=== PATIENT | female | born 1950 | race Caucasian/White ===

== ENCOUNTER → 2018-05-16 | Outpatient (CLI) | payer MEDICARE ==
--- NOTE | 2018-05-16 16:43 | BD ---
EXAMINATION TYPE: Axial Bone Density DATE OF EXAM: 05/16/2018 COMPARISON: 12/26/2003 CLINICAL HISTORY: Height: 65 IN Weight: 195 LBS FRAX RISK QUESTIONS: History of Fracture in Adulthood: YES TOE FX AGE 67; TOE FX AGE 68 Secondary Osteoporosis: 3. Menopause before 45: YES AGE 41 RISK FACTORS HISTORY OF: History of Wrist Fracture: YES RT WRIST When: AGE 37 Active: YES Diet low in dairy products/other sources of calcium: YES Postmenopausal woman: AGE 41 Take estrogen and/or progesterone medications: NOT NOW How long: AGE 41 - 51 MEDICATIONS: Thyroid Medications: YES Which medication: Levothyroxine How Lon + YEARS Additional Medications: MULTI VIT, COCOA, LEVOTHYROXINE, LONGEVITY, YOUNG LIVING CALCIUM EXAM MEASUREMENTS: Bone mineral densitometry was performed using the [employer] System. Bone mineral density as measured about the Lumbar spine is: ----- L1-L4(G/cm2): 1.306 T Score Values are as follows: ----- L2: 1.3 ----- L3: 1.8 ----- L4: 0.6 ----- L1-L4: 1.0 Bone mineral density has: Increased 6.3% since study of: 12/26/2003 Bone mineral density about the R hip (g/cm2): 0.907 Bone mineral density about the L hip (g/cm2): 0.965 T Score values are as follows: -----R Neck: -0.9 -----L Neck: -0.5 -----R Total: -0.4 -----L Total: -0.7 Bone mineral density has: Decreased -6.2% since study of: 12/26/2003 IMPRESSION: Normal (Values between +1 and -1 indicate normal bone mass). Consider repeating this study in 5 year s or sooner if there is some new clinical indication. NOTE: T-SCORE=SD OF THE YOUNG ADULT MEAN.
--- NOTE | 2018-05-19 12:39 | MM ---
Reason for exam: screening (asymptomatic). Last mammogram was performed 1 year and 1 month ago. History: Patient is postmenopausal and had first child at age 40. Family history of breast cancer in mother at age 84. Benign excisional biopsy of the left breast, March 25, 1997. Excisional biopsy of the right breast. MG 3D Screening Mammo W/Cad Bilateral CC and MLO view(s) were taken. Prior study comparison: April 03, 2017, bilateral MG 3d screening mammo w/cad. March 03, 2016, mammogram, performed at [facility]. The breast tissue is heterogeneously dense. This may lower the sensitivity of mammography. Previous mammotome biopsy in the right breast. Chronic nodularity middle depth centrally in the left breast. No significant changes when compared with prior studies. ASSESSMENT: Negative, BI-RAD 1 RECOMMENDATION: Routine screening mammogram of both breasts in 1 year.
== END | disposition home or self-care (01) ==
LOC: RADMAMWWP 14:22
PROVIDERS: ATTEND Internal Medicine
DX: Z12.31 Encounter for screening mammogram for malignant neoplasm of breast (principal); Z80.3 Family history of malignant neoplasm of breast; Z78.0 Asymptomatic menopausal state
CPT/HCPCS: 77063; 77067; 77080

== ENCOUNTER 2018-06-10 01:36 | Observation (INO) | payer MEDICARE ==
--- NOTE | 2018-06-10 02:05 | ED ---
Chest Pain HPI - General Chief Complaint: Chest Pain Stated Complaint: Chest Pain Time Seen by Provider: 06/10/18 01:48 Source: patient, family Mode of arrival: ambulatory Limitations: no limitations - History of Present Illness MD Complaint: chest pain -: hour(s) Onset: during rest Pain Location: left chest Pain Radiation: none Severity: severe Quality: sharp Consistency: now resolved Improves With: nothing Worsens With: nothing - Related Data Home Medications Medication Instructions Recorded Confirmed Levothyroxine Sodium [Synthroid] 100 mcg PO DAILY 02/10/15 03/30/17 Allergies Allergy/AdvReac Type Severity Reaction Status Date / Time latex Allergy Anaphylaxis Verified 06/10/18 01:42 P-phenylenediamine Allergy Swelling Uncoded 06/10/18 01:42 Review of Systems ROS Statement: Those systems with pertinent positive or pertinent negative responses have been documented in the HPI. ROS Other: All systems not noted in ROS Statement are negative. Constitutional: Denies: fever, chills Respiratory: Denies: cough, dyspnea Cardiovascular: Reports: chest pain. Denies: palpitations, orthopnea, edema, syncope Gastrointestinal: Denies: abdominal pain, nausea, vomiting Genitourinary: Denies: dysuria, hematuria Musculoskeletal: Denies: back pain Skin: Denies: rash Neurological: Denies: headache, weakness, numbness EKG Findings - EKG Comments: EKG Findings:: QTC is 492 ms, prolonged. - EKG Results: EKG: interpreted by ERMD, sinus rhythm, normal axis, normal QRS, normal ST/T Past Medical History Past Medical History: Cancer, CVA/TIA, Eye Disorder, Thyroid Disorder Additional Past Medical History / Comment(s): , TIA yrs. ago without further problems.,. CATARACT RT EYE. Small lymphocytic lymphoma. Chronic lymphocytic leukemia History of Any Multi-Drug Resistant Organisms: None Reported Additional Past Surgical History / Comment(s): Infected milk duct yrs. ago. COLONOSCOPY X 3. CATARACT SX LT EYE. Lymphnode removed in neck Past Anesthesia/Blood Transfusion Reactions: No Reported Reaction Past Psychological History: No Psychological Hx Reported Smoking Status: Never smoker Past Alcohol Use History: Daily Past Drug Use History: None Reported - Past Family History Sister(s) Family Medical History: Cancer Mother Family Medical History: Cancer Additional Family Medical History / Comment(s): Breast Brother(s) Family Medical History: Cancer Additional Family Medical History / Comment(s): TWO BROTHERS WITH CANCER- Pancreatic and BLADDER General Exam Limitations: no limitations General appearance: alert, in no apparent distress, anxious Head exam: Present: atraumatic, normocephalic Eye exam: Present: normal appearance. Absent: scleral icterus, conjunctival injection ENT exam: Present: normal oropharynx Respiratory exam: Present: normal lung sounds bilaterally. Absent: respiratory distress, wheezes, rales, rhonchi, stridor Cardiovascular Exam: Present: regular rate, normal rhythm, normal heart sounds. Absent: systolic murmur, diastolic murmur, rubs, gallop GI/Abdominal exam: Present: soft. Absent: distended, tenderness, guarding, rebound, mass Extremities exam: Present: normal inspection, normal capillary refill. Absent: pedal edema, calf tenderness Back exam: Present: normal inspection. Absent: CVA tenderness (R), CVA tenderness (L) Neurological exam: Present: alert Skin exam: Present: warm, dry, intact, normal color. Absent: rash Course Vital Signs 06/10/18 06/10/18 06/10/18 01:38 01:51 02:00 Temperature 98.0 F Pulse Rate 102 H 93 88 Respiratory 22 15 11 L Rate Blood Pressure 203/100 O2 Sat by Pulse 99 97 Oximetry 06/10/18 06/10/18 06/10/18 02:15 02:30 02:45 Temperature Pulse Rate 89 76 80 Respiratory 17 11 L 12 Rate Blood Pressure 172/99 O2 Sat by Pulse 98 98 97 Oximetry 06/10/18 06/10/18 06/10/18 03:00 03:15 03:30 Temperature Pulse Rate 70 70 67 Respiratory 19 13 15 Rate Blood Pressure 154/86 167/92 167/92 O2 Sat by Pulse 98 98 97 Oximetry 06/10/18 06/10/18 06/10/18 03:45 04:00 04:15 Temperature Pulse Rate 66 64 63 Respiratory 12 21 14 Rate Blood Pressure 150/97 150/97 152/83 O2 Sat by Pulse 97 97 98 Oximetry Disposition Clinical Impression: Chest pain Disposition: ADMITTED IP TO THIS [facility] Condition: Good Is patient prescribed a controlled substance at d/c from ED?: No Referrals: Bib Plunkett MD [Primary Care Provider] - 1-2 days
[2018-06-10] MEDS ORDERED: LABETALOL SYRINGE 5 MG/ML IVP STA (02:26)
[2018-06-10] MEDS ORDERED: ASPIRIN 81 MG PO STA (02:26)
[2018-06-10 02:45] LABS: Basophils # (A) 0.1 k/uL (0-0.2); Basophils % (A) 1 %; Eosinophils # (A) 0.2 k/uL (0-0.7); Eosinophils % (A) 4 %; HGB 13.4 gm/dL (11.4-16.0); Lymphocytes # (A) 1.7 k/uL (1.0-4.8); Lymphocytes % (A) 27 %; MCH 30.8 pg (25.0-35.0); MCHC 32.5 g/dL (31.0-37.0); MCV 94.6 fL (80.0-100.0); Mean Platelet Volume 7.7; Monocytes # (A) 0.6 k/uL (0-1.0); Monocytes % (A) 9 %; Neutrophils # (A) 3.4 k/uL (1.3-7.7); Neutrophils % (A) 56 %; Platelet Count 205 k/uL (150-450); RBC 4.34 m/uL (3.80-5.40); RDW 12.9 % (11.5-15.5); WBC 6.2 k/uL (3.8-10.6)
--- NOTE | 2018-06-10 02:46 | XR ---
EXAM: XR Chest, 2 Views CLINICAL HISTORY: ITS.REASON XR Reason: Chest Pain TECHNIQUE: Frontal and lateral views of the chest. COMPARISON: 01/20/08. No prior report. FINDINGS: Poor inspiratory depth on the frontal view. This accentuates the cardiac and mediastinal silhouette. Suspect heart size is upper limits normal allowing for technique. Suspected atelectasis and vascular congestion. No consolidation. IMPRESSION: Suspected vascular congestion.
[2018-06-10 03:00] LABS: Albumin 4.7 g/dL (3.5-5.0); Calcium 9.7 mg/dL (8.4-10.2); Magnesium 2.1 mg/dL (1.6-2.3); Potassium 3.9 mmol/L (3.5-5.1); Total Bilirubin 0.6 mg/dL (0.2-1.3); Total Protein 7.7 g/dL (6.3-8.2)
[2018-06-10 03:15] LABS: D-Dimer 0.56 mg/L FEU (<0.60); INR 0.9 (<1.2); Partial Thromboplastin Time 25.4 sec (22.0-30.0); Prothrombin Time 10.1 sec (9.0-12.0)
[2018-06-10 03:21] LABS: Creatine Kinase 65 U/L (30-135)
[2018-06-10 03:33] LABS: Creatine Kinase MB 1.1 ng/mL (0.0-2.4); Troponin I <0.012 ng/mL (0.000-0.034)
[2018-06-10] MEDS ORDERED: NITROGLYCERIN SL TABS 0.4 MG TAB SUBLINGUAL PRN (04:29)
[2018-06-10 06:12] LABS: Creatine Kinase 52 U/L (30-135)
[2018-06-10 06:15] VITALS: BMI 32.4
[2018-06-10 06:25] LABS: Creatine Kinase MB 0.7 ng/mL (0.0-2.4); Troponin I <0.012 ng/mL (0.000-0.034)
--- NOTE | 2018-06-10 07:59 | P.HPIM ---
History of Present Illness The patient is a 68-year-old female patient of Dr. Stone for whom I am covering. Patient presented to the emergency room earlier this morning with upper left chest pain which was described as sharp in nature and sudden in onset. The pain she has not had previously. Along with an elevated blood pressure. The patient states she was doing some research with her on the Internet for her newly diagnosed chronic lymphocytic leukemia when the chest pain started. Shortly after that she checked her blood pressure and it was elevated over 200. The patient did move out of the room she was in and the pain dissipated over several minutes. It did not radiate to the jaw or to the arm. It was not pleuritic in nature. Patient was brought to the emergency room. Past medical history No history of previous cardiac problems.. It appears she has been recently diagnosed with chronic lymphocytic leukemia. Hypothyroidism on replacement History of possible TIA in the past. No history of myocardial infarction hypertension or diabetes. ALLERGIES Latex: Anaphylactoid reaction Home medications Levothyroxine 100 g daily Review of systems Basically as stated above with the chest pain. No complaints of fever or chills or cough. No visual disturbances or headaches. No nausea or vomiting. No urinary or bowel's problems. No unusual leg edema. Family history Mother with breast cancer. 2 brothers with cancer apparently pancreatic and bladder cancer. Social history No smoking history but does drink small amounts of alcohol regularly. Lives with her locally in the area. Physical examination Patient was aroused in bed on the observation unit. Generally alert and oriented once aroused. Vital signs show a temperature of 97.5 with a pulse of 62 and respirations 16. Blood pressure 166/88 and she is 97% saturated on room air. Head and neck exam is unremarkable. Extraocular movements are intact. Neck is not stiff. No thyromegaly detected. Lungs were clear to auscultation. Breast and pelvic exam deferred. Heart was regular without murmurs or rubs appreciated. Abdomen is soft and nontender without rebound, guarding or masses. Extremities reveal no edema. She is alert and oriented. No focal cranial or peripheral nerve deficits. Laboratory CBC was normal with white count 6.2, hemoglobin 13.4 and platelet count 205. Coagulation studies normal and d-dimer was 0.56. Electrolytes were normal with a potassium 3.9. BUN was 30 with creatinine 0.82 given her GFR 73. CKs were normal. Troponins 2 so far less than 0.012. Albumin 4.7. Other liver function tests normal. EKG shows a normal sinus rhythm with what appears to be a prolonged QT interval but no acute ischemic changes noted. Chest x-ray showed suspected vascular congestion but poor inspiratory effort. Impressions Chest pain Elevated blood pressure readings without diagnosis of hypertension Hypothyroidism on replacement therapy History of TIA Apparently newly diagnosed chronic lymphocytic leukemia Plans Patient will be monitored Cardiology consult. Further troponin values to be obtained Patient has appointment with oncology soon for her CLL. will await further recommendations from cardiology regarding further workup. Past Medical History Past Medical History: Cancer, CVA/TIA, Eye Disorder, Thyroid Disorder Additional Past Medical History / Comment(s): TIA yrs. ago without further problems.,. CATARACT RT EYE. Small lymphocytic lymphoma. Chronic lymphocytic leukemia History of Any Multi-Drug Resistant Organisms: None Reported Additional Past Surgical History / Comment(s): Infected milk duct yrs. ago. COLONOSCOPY X 3. CATARACT SX LT EYE. Lymphnode removed in neck Past Anesthesia/Blood Transfusion Reactions: No Reported Reaction Past Psychological History: No Psychological Hx Reported Smoking Status: Never smoker Past Alcohol Use History: Daily Past Drug Use History: None Reported - Past Family History Sister(s) Family Medical History: Cancer Mother Family Medical History: Cancer Additional Family Medical History / Comment(s): Breast Brother(s) Family Medical History: Cancer Additional Family Medical History / Comment(s): TWO BROTHERS WITH CANCER- Pancreatic and BLADDER Medications and Allergies Home Medications Medication Instructions Recorded Confirmed Type Levothyroxine Sodium [Synthroid] 100 mcg PO DAILY 02/10/15 03/30/17 History Allergies Allergy/AdvReac Type Severity Reaction Status Date / Time latex Allergy Anaphylaxis Verified 06/10/18 01:42 P-phenylenediamine Allergy Swelling Uncoded 06/10/18 01:42 Physical Exam Vitals: Vital Signs Temp Pulse Pulse Resp BP BP Pulse Ox 06/10/18 05:59 97.5 F L 62 16 166/88 97 06/10/18 05:10 62 16 06/10/18 04:15 63 14 152/83 98 06/10/18 04:00 64 21 150/97 97 06/10/18 03:45 66 12 150/97 97 06/10/18 03:30 67 15 167/92 97 06/10/18 03:15 70 13 167/92 98 06/10/18 03:00 70 19 154/86 98 06/10/18 02:45 80 12 172/99 97 06/10/18 02:30 76 11 L 98 06/10/18 02:15 89 17 98 06/10/18 02:00 88 11 L 97 06/10/18 01:51 93 15 06/10/18 01:38 98.0 F 102 H 22 203/100 99 Intake and Output 06/09/18 06/10/18 06/10/18 22:59 06:59 14:59 Other: Voiding Method Toilet # Voids 1 Weight 88.451 kg Results CBC & Chem 7: 06/10/18 02:00 06/10/18 02:00 Labs: Abnormal Lab Results - Last 24 Hours (Table) 06/10/18 Range/Units 02:00 BUN 30 H (7-17) mg/dL Thrombosis Risk Factor Assmnt - Choose All That Apply Any of the Below Risk Factors Present?: Yes Each Factor Represents 1 point: Obesity (BMI >25) Other Risk Factors: Yes Each Risk Factor Represents 2 Points: Age 61-74 years Other congenital or acquired thrombophilia - If yes, enter type in comment: No Thrombosis Risk Factor Assessment Total Risk Factor Score: 3 Thrombosis Risk Factor Assessment Level: Moderate Risk
[2018-06-10] MEDS ORDERED: METOPROLOL TARTRATE 25 MG TAB PO SCH (09:00)
[2018-06-10] MEDS: LEVOTHYROXINE 100 MCG TAB PO SCH (10:07)
--- NOTE | 2018-06-10 10:45 | CONS ---
CONSULTATION Mrs. Turner is a 68-year-old female who was admitted through the emergency room with symptoms of chest discomfort. She was recently diagnosed with CLL and while looking up some information with her on the Internet, she felt severe chest discomfort. Subsequently checked her blood pressure and it was elevated. Because of that, she came into the emergency room and subsequently admitted. The patient denies any prior similar symptoms. She is active physically. Has no exertional chest pain. She has no dizziness or palpitation on a regular basis. No PND, orthopnea, or peripheral edema. Her discomfort did not radiate. She usually exercises without any symptoms. Her coronary risk factors are negative for hypertension or diabetes. She is nonsmoker. No documented significant hyperlipidemia. Her blood pressure has been under good control at home. MEDICATION: Her medications at home include levothyroxine, vitamin D and calcium. She is scheduled to see Dr. Will for the first time tomorrow. REVIEW OF SYSTEMS: RESPIRATORY system: No recent wheezing. No cough. No history of documented obstructive lung disease. GI system: No recent GI bleed. No peptic ulcer disease. system: No dysuria or hematuria. Nervous system: No stroke or seizure. She had a prior TIA according to her. PHYSICAL EXAMINATION: She is a 68-year-old female, alert, oriented, in no apparent distress. Blood pressure 121/70 with a heart rate in the 60s. HEAD: Normocephalic. EYES: Sclerae anicteric. Neck: Good carotid upstroke with left-sided bruit. No jugular venous distention. Lungs clear to auscultation. HEART: Regular rate and rhythm S1, S2. No S3 with systolic murmur heard at the base. No diastolic murmur. No rub. ABDOMEN: Soft, nontender. Positive bowel sounds. No organomegaly. EXTREMITIES: No edema. Intact distal pulses. LAB DATA: EKG revealed sinus mechanism, rate [address]-T wave changes. Troponin less than 0.012 for 2 samples. BUN and creatinine 30 and 0.82. Hemoglobin of 13.4. Chest x-ray revealed no acute infiltrate. IMPRESSION: 1. Chest discomfort atypical for ischemic heart disease probably noncardiac. 2. Recently diagnosed CLL. 3. Hypertension not documented in the past. RECOMMENDATION: I will increase her level of activity. Obtain a stress echocardiogram and transthoracic echo tomorrow. If there is no abnormality, she should be able to be discharged home tomorrow. She has an appointment with Dr. Will tomorrow at noon time and hopefully her testing can be done prior to that. Thank you for this consult. We will follow with you. OFE / SARANN: [id number] /
[2018-06-10 15:37] LABS: Creatine Kinase 46 U/L (30-135)
[2018-06-10 15:50] LABS: Creatine Kinase MB 0.6 ng/mL (0.0-2.4); Troponin I <0.012 ng/mL (0.000-0.034)
[2018-06-11 04:41] LABS: Cholesterol 261 mg/dL (<200); HDL Cholesterol 92 mg/dL (40-60); LDL Cholesterol,Calculated 144 mg/dL (0-99); Triglycerides 126 mg/dL (<150)
[2018-06-11] MEDS: LEVOTHYROXINE 100 MCG TAB PO SCH (05:53)
[2018-06-11] MEDS ORDERED: ASPIRIN 325 MG TAB PO SCH (09:00)
[2018-06-11 09:10] VITALS: BP 159/93; PULSE 61; RESP 14; TEMP 97.4
--- NOTE | 2018-06-11 10:58 | P.PN ---
Subjective This is a pleasant 68-year-old female past medical history significant for CLL. She presented to the hospital with chest discomfort that has resolved. She does not follow with a safety risk lead for any reason. She denies any further symptoms of chest pain. Denies shortness of breath, dizziness , palpitations, nausea, vomiting or diaphoresis. She underwent stress echocardiogram today that was negative for stress induced ischemia. Blood pressure 159/93 heart rate 61. Laboratory data reviewed, cardiac enzymes negative x3, LDL 144, HDL 92. Currently takes no medication for high blood pressure or high cholesterol. GENERAL: Well-appearing, well-nourished and in no acute distress. NECK: Supple without JVD or thyromegaly. LUNGS: Breath sounds clear to auscultation bilaterally. Respiration equal and unlabored. No wheezes, rales or rhonchi. HEART: Regular rate and rhythm with systolic murmur at the base, no rubs or gallops. S1 and S2 heard. EXTREMITIES: Normal range of motion, no edema. No clubbing or cyanosis. Peripheral pulses intact. ASSESSMENT Chest pain, atypical. An acute coronary event has been ruled out. Recently diagnosed with CLL Dyslipidmia PLAN Initiate on lisinopril 5 mg daily and atorvastatin 40 mg daily. Lifestyle modifications recommended for lowering of LDL cholesterol with diet and exercise. Follow up liver function tests in [address] Lawrence in the office in 3 weeks, appointment to be made prior to discharge. Stable for discharge home from a cardiac perspective. Nurse Practitioner note has been reviewed, I agree with a documented findings and plan of care. Patient was seen and examined. Objective - Vital Signs Vital signs: Vital Signs Temp 97.4 F L 06/11/18 08:00 Pulse 61 06/11/18 08:00 Resp 14 06/11/18 08:00 BP 159/93 06/11/18 08:00 Pulse Ox 95 06/11/18 08:00 Intake & Output 06/10/18 06/11/18 06/11/18 18:59 06:59 18:59 Other: Voiding Method Toilet Toilet # Voids 1 - Labs CBC & Chem 7: 06/10/18 02:00 06/10/18 02:00 Labs: Abnormal Lab Results - Last 24 Hours (Table) 06/10/18 Range/Units 02:00 Cholesterol 261 H (<200) mg/dL LDL Cholesterol, Calc 144 H (0-99) mg/dL HDL Cholesterol 92 H (40-60) mg/dL
[2018-06-11] MEDS ORDERED: ATORVASTATIN 40 MG TAB PO SCH (11:00)
[2018-06-11] MEDS ORDERED: LISINOPRIL 5 MG TAB PO SCH (11:00)
--- NOTE | 2018-06-11 11:49 | ECHOS ---
STRESS ECHOCARDIOGRAM INDICATIONS: Chest pain. MEDICATIONS: Synthroid. BASELINE HEART RATE: 69 BASELINE BLOOD PRESSURE: 181/88 MAXIMUM HEART RATE: 140 MAXIMUM BLOOD PRESSURE: 208/101 85% MPHR: 128 100% MPHR: 150 METS: 8.3 MAXIMUM STAGE REACHED: 3 TOTAL EXERCISE TIME: 7:00 CLINICAL INFORMATION: Baseline EKG shows sinus rhythm, normal axis, normal intervals. The patient exercised on Misha protocol for a total of 7 minutes achieving 8 METs, 93% of predicted maximal heart rate without chest pain. At peak exercise, there was [address]-segment depression noted in the inferolateral leads. Baseline echo shows normal left ventricular size wall motion systolic function. Postexercise, there is normal hyperdynamic response of all segments of myocardium. CONCLUSION: 1. Above-average exercise tolerance. 2. Abnormal stress test by EKG criteria. 3. Negative stress echo. OFE / JASON: [id number] /
--- NOTE | 2018-06-11 23:02 | PN ---
PROGRESS NOTE CHIEF COMPLAINT: Re-evaluation. HISTORY OF PRESENT ILLNESS: This lady was admitted to the hospital because of chest pain. The patient also had elevated blood pressure. She was evaluated and admitted to the hospital. The patient's troponins are negative. The patient has no further symptoms. She is sitting up, actually wanting to go home right away. The patient is scheduled for a stress test. She denies any other major symptoms. She has an appointment with the oncologist today for a recent diagnosis of CLL; possibility of lymphoma obviously has to be ruled out. The patient denies any cardiac symptoms. She was seen by Cardiology. REVIEW OF SYSTEMS: NEURO: Denies any headaches, dizziness. PSYCH: No anxiety. Some apprehension. CARDIAC: Denies chest pain, angina, palpitations. RESPIRATORY: Denies shortness of breath, cough, hemoptysis. GI: No nausea, vomiting, abdominal pain, diarrhea. : No symptoms of dysuria or hematuria. EXTREMITIES: No pain, edema. CONSTITUTIONAL: No fever, chills. PHYSICAL EXAMINATION: Pleasant female in no distress. Vital signs reveal temperature 97.4, pulse 61, respirations 14, blood pressure 159/93, pulse ox of 95% on room air. HEENT: Normocephalic. NECK: Some lymph nodes in the posterior cervical area on the left side; maybe smaller on the right side. No other supraclavicular lymph nodes. Small axillary lymph nodes bilaterally. No inguinal nodes. No splenomegaly. CHEST: Clear to auscultation and percussion. CARDIAC: Normal S1, S2 with no gallops, murmurs, rubs. ABDOMEN: Soft. Bowel sounds present. EXTREMITIES: No edema. No tenderness. NEUROLOGIC: Awake, alert, oriented with well-coordinated movements. LABORATORY ASSESSMENT: Troponin is negative x3. Stress echo was reported negative. ASSESSMENT: 1. Atypical chest pain. 2. Lymphadenopathy with underlying diagnosis of chronic lymphocytic leukemia. 3. Elevated blood pressure. PLAN: The patient is stable. Continue present medical regimen. She is planned for discharge. She will follow up as an outpatient regarding her blood pressure. She has also got an appointment to see the oncologist today. MMODL / IJN: [id number] /
== END 2018-06-11 11:26 | disposition home or self-care (01) ==
LOC: EC 01:36 → 1SOBS 04:32
PROVIDERS: ADMIT Internal Medicine; ATTEND Internal Medicine
DX: R07.89 Other chest pain (principal); C91.10 Chronic lymphocytic leukemia of B-cell type not having achieved remission; E03.9 Hypothyroidism, unspecified; I10 Essential (primary) hypertension; Z79.890 Hormone replacement therapy; Z91.040 Latex allergy status; Z98.42 Cataract extraction status, left eye; Z88.8 Allergy status to other drugs, medicaments and biological substances; Z86.73 Personal history of transient ischemic attack (TIA), and cerebral infarction without residual deficits; Z80.3 Family history of malignant neoplasm of breast; Z80.52 Family history of malignant neoplasm of bladder
CPT/HCPCS: 96374; 99285; 36415; 93005; 93306; 93351; 85379; 80061; 80053; 82550; 82553; 83735; 84484; 85025; 85610; 85730; 71046; G0378 ×2

== ENCOUNTER → 2018-06-13 | Outpatient (CLI) | payer MEDICARE ==
--- NOTE | 2018-06-13 12:25 | CT ---
EXAMINATION TYPE: CT ChestAbdPelvis w con DATE OF EXAM: 06/13/2018 COMPARISON: None HISTORY: 68-year-old female with recent diagnosis of lymphoma and CLL TECHNIQUE: Contiguous axial scanning of the chest, abdomen, and pelvis performed with IV Contrast, pa tient injected with 100 mL of Isovue 300. Delayed images through the kidneys were obtained. Coronal/s agittal reconstructions performed. CT DLP: 1388.2 mGycm Automated exposure control for dose reduction was used. FINDINGS: Chest: Heart normal size without pericardial effusion. Mild coronary vessel calcifications are present. Aorta normal caliber with mild atherosclerotic arch calcifications and conventional arch vessel branc al anatomy. Some borderline to mildly enlarged axillary lymph nodes measure up to 1.8 cm, axial image 17. Other n onenlarged lymph nodes show axillary lymph nodes show mild cortical thickening measuring up to 7 mm t hick. Some of these lymph nodes are numerous and have a rounded configuration, or example, on the rig ht axial image 14 and on the left on axial image 18. Otherwise, no mediastinal or hilar lymphadenopathy. No consolidation or pleural effusion. ABDOMEN: Small hiatal hernia. No focal liver lesion or biliary ductal dilatation. Portal venous system is patent. Gallbladder, adrenal glands, left kidney, spleen, atrophic pancreas show no gross anomaly. 1.5 cm fatty lesion mid to lower pole right kidney. Symmetric excretion of contrast from both kidneys . No dilated small bowel, free fluid, or free air. Normal appendix. There is moderate stool with oral c ontrast progressed to the hepatic flexure. No pericolonic inflammatory change. Numerous nonenlarged and borderline sized retroperitoneal lymph nodes particularly along the infraren al level measuring up to 7 mm. Additional borderline and mildly enlarged common iliac chain lymph nod es measuring up to 9 mm on the right. No mesenteric lymphadenopathy seen. Pelvis: Bladder is urine distended. Prominent right external iliac chain lymph node measures 1.3 cm. Borderli ne sized left external iliac chain lymph node measures 8 mm. Right pelvic sidewall lymph node borderl ine enlarged at 9 mm. Lymph nodes at the junction of the left external and left common femoral artery measure up to 1.1 cm. Uterus is present. There is a 2.4 cm rounded density along the right lateral aspect of the uterus. Ad ditionally, there is a mass measuring 6.2 x 3.9 cm in the cul-de-sac showing dense partial calcificat ion. No abnormal fluid collection the pelvis. Bones: Popcorn calcifications within the intramedullary space of the subtrochanteric right femur suggests a chondroid lesion. No suspicious cortical changes. Degenerative changes at the pubic symphysis. Degene rative changes at the left hip and bilateral SI joints. Facet arthropathy throughout the lumbar spine . Grade 1 anterolisthesis at L4-L5. No osseous destructive process seen. Additional degenerative urrutia ges at the right shoulder. IMPRESSION: 1. NUMEROUS NONENLARGED AND SOME BORDERLINE TO MILDLY ENLARGED AXILLARY LYMPH NODES (1.8 CM), NUMEROU S BORDERLINE SIZED INFRARENAL RETROPERITONEAL LYMPH NODES (7 MM), BORDERLINE SIZED RIGHT COMMON ILIAC CHAIN LYMPH NODES (9 MM), AND BORDERLINE TO MILDLY ENLARGED EXTERNAL ILIAC CHAIN LYMPH NODES (1.3 CM ). FINDINGS MAY BE ON THE BASIS OF KNOWN LYMPHOMA/CLL. 2. 6.2 CM CUL-DE-SAC MASS SHOWS DENSE PARTIAL CALCIFICATIONS. AN EXOPHYTIC FIBROID FROM THE POSTERIOR LOWER UTERINE SEGMENT IS SUSPECTED. THERE IS AN ADDITIONAL 2.4 CM ROUNDED DENSITY FROM THE RIGHT LAT ERAL ASPECT OF THE UTERUS THAT COULD REPRESENT AN OVARIAN LESION OR A NONCALCIFIED FIBROID. PELVIC UL TRASOUND MAY BE HELPFUL TO FURTHER EVALUATE. 3. 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
== END | disposition home or self-care (01) ==
LOC: RADCTMAIN 08:40
PROVIDERS: ATTEND Internal Medicine Hematology & Oncology
DX: C92.00 Acute myeloblastic leukemia, not having achieved remission (principal); R59.0 Localized enlarged lymph nodes; D25.9 Leiomyoma of uterus, unspecified; C83.01 Small cell B-cell lymphoma, lymph nodes of head, face, and neck
CPT/HCPCS: 71260; 74177; Q9967

== ENCOUNTER → 2018-08-01 | Outpatient (CLI) | payer MEDICARE ==
--- NOTE | 2018-08-02 07:12 | US ---
EXAMINATION TYPE: US transvaginal DATE OF EXAM: 08/01/2018 COMPARISON: NONE CLINICAL HISTORY: D25.[address], LYMPHOMA PATIENT, TECHNIQUE: TV Date of LMP: 20YRS AGO EXAM MEASUREMENTS: Uterus: 5.3 x 3.0 x 2.9cm Endometrial Stripe: undiscernible Right Ovary: not seen Left Ovary: not seen 1. Uterus: retroflexed, calcified central portion 2. Endometrium: unable to discern 3. Right Ovary: no normal ovarian tissue seen, atrophy and bowel gas limits exam 4. Left Ovary: no normal ovarian tissue seen, atrophy and bowel gas limits exam 5. Bilateral Adnexa: 4.6cm complex lesion seen adjacent to the right side of uterus, unable to disce rn if pedunculated fibroid, versus ovarian etiology or pathology 6. Posterior cul-de-sac: large calcified area noted inferior to uterus, due to extensive shadowing u nable to accurately measurement. 6.2cm on recent CT There is retroflexed uterus making evaluation suboptimal. Uterus is overall markedly heterogeneous. E ndometrial stripe is not distinctly visualized. There is shadowing hyperechoic structure mid aspect o f uterus suspicious for dystrophic calcification on CT correlate. Right adnexa that shows heterogeneo us hypoechoic oval lesion which correlates with CT measuring 4.6 cm long axis on image 28 appears to have margin from adjacent uterus. IMPRESSION: Suboptimal study, lesion of concern right pelvis redemonstrated appears more hypoechoic o n ultrasound versus adjacent uterine myometrium which correlates with CT where appears more hypodense . Ultrasound images suggests border or separation from uterus less well-seen on CT. I favor solid rig ht ovarian mass or neoplasm. Subserosal fibroid felt less likely but not excluded. Advise gynecology oncology referral and appropriate tumor marker workup.
== END ==
LOC: RADUSWWP 15:41
PROVIDERS: ATTEND Obstetrics & Gynecology
DX: D25.9 Leiomyoma of uterus, unspecified (principal); N83.209 Unspecified ovarian cyst, unspecified side
CPT/HCPCS: 36415; 76830; 86304

== ENCOUNTER → 2019-06-05 | Outpatient (CLI) | payer MEDICARE ==
--- NOTE | 2019-06-06 14:12 | MM ---
Reason for exam: screening (asymptomatic). Last mammogram was performed 1 year and 1 month ago. History: Patient is postmenopausal, history of other cancer, and had first child at age 40. Family history of breast cancer in mother at age 84. Benign excisional biopsy of the left breast, March 25, 1997. Excisional biopsy of the right breast. Took other hormone for 10 months. Physical Findings: A clinical breast exam by your physician is recommended on an annual basis and results should be correlated with mammographic findings. MG 3D Screening Mammo W/Cad Bilateral CC and MLO view(s) were taken. Prior study comparison: May 16, 2018, bilateral MG 3d screening mammo w/cad. April 03, 2017, bilateral MG 3d screening mammo w/cad. The breast tissue is heterogeneously dense. This may lower the sensitivity of mammography. No significant changes when compared with prior studies. ASSESSMENT: Benign, BI-RAD 2 RECOMMENDATION: Routine screening mammogram of both breasts in 1 year.
== END | disposition home or self-care (01) ==
LOC: RADMAMWWP 15:05
PROVIDERS: ATTEND Obstetrics & Gynecology
DX: Z12.31 Encounter for screening mammogram for malignant neoplasm of breast (principal)
CPT/HCPCS: 77063; 77067

== ENCOUNTER → 2019-06-05 | Outpatient (CLI) | payer MEDICARE ==
--- NOTE | 2019-06-05 15:55 | US ---
EXAMINATION TYPE: US transvaginal DATE OF EXAM: 06/05/2019 COMPARISON: 08/01/2018 CLINICAL HISTORY: N83.8 ovarian mass. follow up from previous 08/17, , no symptoms TECHNIQUE: TV. Transvaginal sonographic images Date of LMP: 20+yrs ago EXAM MEASUREMENTS: Uterus: 6.7 x 3.2 x 2.8cm Endometrial Stripe: undiscernible Right Ovary: not seen Left Ovary: not seen 1. Uterus: Anteverted heterogeneous appearance with calcifications noted within 2. Endometrium: unable to discern 3. Right Ovary: no normal ovarian tissue seen, atrophy versus bowel gas obscuring, lesion noted with in right adnexa as explained below. 4. Left Ovary: no ovarian tissue seen, atrophy versus bowel gas obscuring ovary 5. Bilateral Adnexa: 4.3cm complex solid lesion seen within right adnexa, unknown if related to ovar y versus pedunculated fibroid. Is difficult to define the masses borders and therefore measurements a re estimation only. 6. Posterior cul-de-sac: Large calcification IMPRESSION: Approximately 4.3 cm solid right adnexal mass again abuts the uterus and therefore could represent an ovarian solid neoplasm versus pedunculated subserosal leiomyoma. Pelvic MRI could be of benefit for further evaluation. Again gynecologic/oncologic surgical consultation is recommended.
== END | disposition home or self-care (01) ==
LOC: RADUSWWP 15:01
PROVIDERS: ATTEND Obstetrics & Gynecology
DX: N83.8 Other noninflammatory disorders of ovary, fallopian tube and broad ligament (principal)
CPT/HCPCS: 76830; 86304

== ENCOUNTER 2019-06-13 16:24 | Emergency (ER) | payer MEDICARE ==
[2019-06-13 16:32] VITALS: RESP 16; TEMP 98.3
[2019-06-13] MEDS ORDERED: OXYMETAZOLINE 0.05% NASL SPRAY 1 SPRAY BOTTLE NASAL STA (17:01)
[2019-06-13 17:34] LABS: HCT 42.6 % (34.0-46.0); HGB 14.6 gm/dL (11.4-16.0); MCH 32.8 pg (25.0-35.0); MCHC 34.2 g/dL (31.0-37.0); Mean Platelet Volume 7.5; Platelet Count 211 k/uL (150-450); RBC 4.44 m/uL (3.80-5.40); RDW 12.5 % (11.5-15.5)
[2019-06-13 17:42] LABS: Albumin 4.5 g/dL (3.5-5.0); Calcium 9.3 mg/dL (8.4-10.2); Potassium 4.3 mmol/L (3.5-5.1); Total Bilirubin 0.4 mg/dL (0.2-1.3); Total Protein 7.4 g/dL (6.3-8.2)
[2019-06-13 18:03] LABS: Basophils # (M) 0.06 k/uL (0-0.2); Eosinophils # (M) 0.12 k/uL (0-0.7); Monocytes # (M) 0.42 k/uL (0-1.0); Neutrophils % (M) 45 %; Nucleated Red Blood Cells 0 /100 WBC (0-0); Reactive Lymphocytes Present; Total Cells Counted 100
[2019-06-13 18:19] VITALS: BP 180/87; PULSE 66
--- NOTE | 2019-06-13 18:26 | ED ---
General Adult HPI - General Chief complaint: ENT Stated complaint: Nose bleed Time Seen by Provider: 06/13/19 16:37 Source: patient, RN notes reviewed, old records reviewed Mode of arrival: ambulatory Limitations: no limitations - History of Present Illness Initial comments: 69-year-old female patient past medical history of CLL presents to ED for chief complaint of epistaxis. Patient reports that last 2 days she had brief periods of left anterior epistaxis. Denies any headaches, denies any pain, denies any other complaints. These resolved without intervention. Denies any other bleeding or bruises. Denies use of blood thinners. Systemic: Pt denies fatigue, fever/chills, rash. Pt denies weakness, night sweats, weight loss. Neuro: Pt denies visual disturbances, syncope or pre-syncope. HEENT: Pt denies ocular discharge or irritation, otalgia, rhinorrhea, pharyngitis or notable lymphadenopathy. Cardiopulmonary: Pt denies chest pain, SOB, heart palpitations, dyspnea on exertion. Abdominal/GI: Pt denies abdominal pain, n/v/d. : Pt denies dysuria, burning w/ urination, frequency/urgency. Denies new onset urinary or bowel incontinence. MSK: Pt denies myalgia, loss of strength or function in extremities. Neuro: Pt denies new onset weakness, paresthesias. - Related Data Home Medications Medication Instructions Recorded Confirmed Levothyroxine Sodium [Synthroid] 100 mcg PO DAILY 02/10/15 06/10/18 Calcium Carbonate [Calcium] 600 mg PO BID 06/10/18 06/10/18 Cholecalciferol [Vitamin D3] 1,000 unit PO DAILY 06/10/18 06/10/18 Cocco 2 tab PO DAILY 06/10/18 06/10/18 Multivitamins, Thera [Multivitamin 1 tab PO DAILY 06/10/18 06/10/18 (formulary)] Previous Rx's Medication Instructions Recorded Atorvastatin [Lipitor] 40 mg PO DAILY #90 tab 06/11/18 Lisinopril [Zestril] 5 mg PO DAILY #90 tab 06/11/18 Allergies Allergy/AdvReac Type Severity Reaction Status Date / Time latex Allergy Anaphylaxis Verified 06/13/19 16:32 P-phenylenediamine Allergy Swelling Uncoded 06/13/19 16:32 Review of Systems ROS Statement: Those systems with pertinent positive or pertinent negative responses have been documented in the HPI. ROS Other: All systems not noted in ROS Statement are negative. Past Medical History Past Medical History: Cancer, CVA/TIA, Eye Disorder, Thyroid Disorder Additional Past Medical History / Comment(s): TIA yrs. ago without further problems.,. CATARACT RT EYE. Small lymphocytic lymphoma. Chronic lymphocytic leukemia History of Any Multi-Drug Resistant Organisms: None Reported Additional Past Surgical History / Comment(s): Infected milk duct yrs. ago. COLONOSCOPY X 3. CATARACT SX LT EYE. Lymphnode removed in neck Past Anesthesia/Blood Transfusion Reactions: No Reported Reaction Past Psychological History: No Psychological Hx Reported Smoking Status: Never smoker Past Alcohol Use History: Daily, Occasional Past Drug Use History: None Reported - Past Family History Sister(s) Family Medical History: Cancer Mother Family Medical History: Cancer Additional Family Medical History / Comment(s): Breast Brother(s) Family Medical History: Cancer Additional Family Medical History / Comment(s): TWO BROTHERS WITH CANCER- Pancreatic and BLADDER General Exam - General Exam Comments Initial Comments: Constitutional: NAD, AOX3, Pt has pleasant affect. HEENT: NC/AT, trachea midline, neck supple, no lymphadenopathy. Posterior pharynx non erythematous, without exudates. External ears appear normal, without discharge. Mucous membranes moist. Eyes PERRLA, EOM intact. There is no scleral icterus. No pallor noted. No blood noted in nares bilaterally. Cardiopulmonary: RRR, no murmurs, rubs or gallops, no JVD noted. Lungs CTAB in anterior and posterior [place]. No peripheral edema. Abdominal exam: Abdomen soft and non-distended. Abdomen non-tender to palpation in all 4 quadrants. Bowel sounds active in LLQ. No hepatosplenomegaly. No ecchymosis Neuro: CN II-XII intact. No nuchal rigidity. No raccon eyes, no holt sign, no hemotympanum. No cervical spinal tenderness. NIH 0. MSK: No posterior calf tenderness bilaterally, homans sign negative bilaterally. Posterior tibialis and radial pulse +2 bilaterally. Sensation intact in upper and lower extremities. Full active ROM in upper and lower extremities, 5/5 stre gnth. Limitations: no limitations Course Vital Signs 06/13/19 06/13/19 16:27 18:15 Temperature 98.3 F Pulse Rate 72 66 Respiratory 16 16 Rate Blood Pressure 171/91 180/87 O2 Sat by Pulse 98 97 Oximetry Medical Decision Making - Medical Decision Making 69-year-old male patient with the for evaluation of epistaxis last 2 days. History of CLL. Patient also displayed mild hypertension. Patient is no headache. Neurologic exam is intact. No visual changes. NIH is 0. No active bleeding from nares. CBC CMP overall non-impressive. BUN of 27. Patient but she did not drink much water today. Patient should not glass of water. Patient recommended to monitor blood pressure at home. In follow-up with primary care provider tomorrow. Patient not currently on any hypertensives. We'll use Afrin, nasal clamp if epistaxis returns. Return to ER if condition worsens. Case discussed with Dr. Martínez. - Lab Data Result diagrams: 06/13/19 17:15 06/13/19 17:15 Lab Results 06/13/19 06/13/19 Range/Units 17:15 17:15 WBC 6.0 (3.8-10.6) k/uL RBC 4.44 (3.80-5.40) m/uL Hgb 14.6 (11.4-16.0) gm/dL Hct 42.6 (34.0-46.0) % MCV 96.0 D (80.0-100.0) fL MCH 32.8 (25.0-35.0) pg MCHC 34.2 (31.0-37.0) g/dL RDW 12.5 (11.5-15.5) % Plt Count 211 (150-450) k/uL Neutrophils % (Manual) 45 % Lymphocytes % (Manual) 45 % Monocytes % (Manual) 7 % Eosinophils % (Manual) 2 % Basophils % (Manual) 1 % Neutrophils # (Manual) 2.70 (1.3-7.7) k/uL Lymphocytes # (Manual) 2.70 (1.0-4.8) k/uL Monocytes # (Manual) 0.42 (0-1.0) k/uL Eosinophils # (Manual) 0.12 (0-0.7) k/uL Basophils # (Manual) 0.06 (0-0.2) k/uL Nucleated RBCs 0 (0-0) /100 WBC Manual Slide Review Performed Reactive Lymphocytes Present Sodium 138 (137-145) mmol/L Potassium 4.3 (3.5-5.1) mmol/L Chloride 104 (98-107) mmol/L Carbon Dioxide 27 (22-30) mmol/L Anion Gap 7 mmol/L BUN 27 H (7-17) mg/dL Creatinine 0.84 (0.52-1.04) mg/dL Est GFR (CKD-EPI)AfAm 81 (>60 ml/min/1.73 sqM) Est GFR (CKD-EPI)NonAf 70 (>60 ml/min/1.73 sqM) Glucose 96 (74-99) mg/dL Calcium 9.3 (8.4-10.2) mg/dL Total Bilirubin 0.4 (0.2-1.3) mg/dL AST 30 (14-36) U/L ALT 23 (4-34) U/L Alkaline Phosphatase 87 (38-126) U/L Total Protein 7.4 (6.3-8.2) g/dL Albumin 4.5 (3.5-5.0) g/dL Disposition Clinical Impression: Epistaxis Disposition: HOME SELF-CARE Condition: Stable Instructions (If sedation given, give patient instructions): Nosebleed (ED) Additional Instructions: Follow-up with primary care provider tomorrow. Continue to monitor blood pressure at home. If nosebleed returns, use nasal clamp for 30 minutes. Also u se 2 sprays of Afrin in The affected nostril. Do not use Afrin if blood pressure is elevated. Return to ER if blood pressure remains elevated or if you begin to develop headaches, changes in vision. Is patient prescribed a controlled substance at d/c from ED?: No Referrals: Bib Plunkett MD [Primary Care Provider] - 1-2 days
== END 2019-06-13 18:36 | disposition home or self-care (01) ==
LOC: EC 16:24
DX: R04.0 Epistaxis (principal); I10 Essential (primary) hypertension; E07.9 Disorder of thyroid, unspecified; Z79.890 Hormone replacement therapy; Z79.899 Other long term (current) drug therapy; Z91.040 Latex allergy status; Z88.8 Allergy status to other drugs, medicaments and biological substances; Z86.73 Personal history of transient ischemic attack (TIA), and cerebral infarction without residual deficits; Z85.72 Personal history of non-Hodgkin lymphomas; Z85.6 Personal history of leukemia
CPT/HCPCS: 36415; 80053; 85025; 99284

== ENCOUNTER → 2019-10-30 | Outpatient (CLI) | payer MEDICARE ==
[2019-10-30 10:19] LABS: African American GFR (CKD) >90 (>60 ml/min/1.73 sqM); Blood Urea Nitrogen 23 mg/dL (7-17); Non-African American GFR(CKD) 80 (>60 ml/min/1.73 sqM)
--- NOTE | 2019-10-30 13:15 | CT ---
EXAMINATION TYPE: CT ChestAbdPelvis w con DATE OF EXAM: 10/30/2019 COMPARISON: Prior CT chest abdomen pelvis 06/13/2018 HISTORY: Lymphoma CT DLP: 1278.3 mGycm Automated exposure control for dose reduction was used. CONTRAST: CT scan of the chest, abdomen and pelvis is performed and with IV Contrast, patient injected with 100 mL of Isovue 300. FINDINGS: LUNGS: The lungs are grossly clear, there is no concerning parenchymal mass or nodule identified. T here is no pleural effusion or pneumothorax seen. The tracheobronchial tree is patent. MEDIASTINUM: There are no greater than 1 cm hilar or mediastinal lymph nodes. No pericardial effusi on is seen. There is coronary artery calcifications. AORTA: No significant abnormality is seen. OTHER: Axillary lymph node show similar appearance, borderline enlargement noted of a node in the le ft axilla as on prior exam. Is a small hiatal hernia. LIVER/GB: No significant abnormality is appreciated. PANCREAS: No significant abnormality is seen. SPLEEN: No significant abnormality is seen. ADRENALS: No significant abnormality is seen. KIDNEYS: No significant interval change is seen. REPRODUCTIVE ORGANS: Bulky appearance of the uterus is stable. Calcified lesion posterior to the uter us is unchanged. BOWEL: No significant abnormality is seen. FREE AIR: No Free Air visible. ASCITES: None seen. RETROPERITONEAL ADENOPATHY: No retroperitoneal adenopathy is seen. LYMPH NODES: Right external iliac lymph node shows enlargement similar to prior exam at approximately 1.4 cm URINARY BLADDER: No significant abnormality is seen. PELVIC ADENOPATHY: None visualized. OSSEOUS STRUCTURES: No significant interval change is seen. IMPRESSION: No significant interval change, stable exam
== END | disposition home or self-care (01) ==
LOC: RADCTMAIN 09:24
PROVIDERS: ATTEND Internal Medicine Hematology & Oncology
DX: C83.01 Small cell B-cell lymphoma, lymph nodes of head, face, and neck (principal); Z91.040 Latex allergy status
CPT/HCPCS: 82565; 84520; 71260; 74177; 36415; Q9967

== ENCOUNTER 2020-05-13 08:29 | Day surgery (SDC) | payer MEDICARE ==
[2020-05-08 15:30] VITALS: BMI 30.3
[~2020-05-13 08:29] MED LIST: LACTATED RINGERS 1,000 ML IV SCH
[2020-05-13 09:26] VITALS: RESP 16; TEMP 98.3
[2020-05-13] MEDS ORDERED: PROPOFOL 10 MG/ML 20 ML VIAL IV ONE (09:47)
--- NOTE | 2020-05-13 10:07 | P.PCN ---
Date of Procedure: 05/13/20 Procedure(s) Performed: BRIEF HISTORY: Patient is a 70-year-old pleasant female scheduled for an elective colonoscopy as a part of evaluation of prior history of colon polyps. Last colonoscopy was 5 years ago. PROCEDURE PERFORMED: Colonoscopy snare polypectomy. PREOPERATIVE DIAGNOSIS: History of colon polyps IV sedation per Anesthesia. PROCEDURE: After informed consent was obtained, the patient, was brought into the endoscopy unit. IV sedation was administered by Anesthesia under continuous monitoring. Digital rectal examination was normal. Initially the Olympus CF-160 flexible video colonoscope was then inserted in the rectum, gradually advanced into the cecum without any difficulty. Careful examination was performed as the scope was gradually being withdrawn. Ileocecal valve and the appendiceal orifice were visualized and appeared normal. Prep was excellent. Mucosa of the cecum, ascending colon appeared normal. In the transverse colon there was a 5 mm polyp removed by snare polypectomy., transverse colon, descending colon, sigmoid colon, and rectum appeared normal. In the distal rectum there was mild erythema noted consistent with mild rectal prolapse. Retroflexion was performed in the rectum and small internal hemorrhoids were seen. The patient tolerated the procedure well. IMPRESSION: 5 mm transverse colon polyp status post polypectomy Small internal hemorrhoids Mild rectal prolapse RECOMMENDATIONS: Findings of this examination were discussed with the patient well as her family.. She was advised to follow with the biopsy results. If the biopsy shows an adenoma she can have a repeat colonoscopy in 5 years
[2020-05-13 10:25] VITALS: BP 117/71; PULSE 62
== END 2020-05-13 11:03 | disposition home or self-care (01) ==
LOC: ORWHC2ENDO 08:29
PROVIDERS: ATTEND Internal Medicine Gastroenterology
DX: Z12.11 Encounter for screening for malignant neoplasm of colon (principal); K63.5 Polyp of colon; K64.8 Other hemorrhoids; K62.3 Rectal prolapse; E07.9 Disorder of thyroid, unspecified; Z86.010 Personal history of colon polyps; Z79.899 Other long term (current) drug therapy; Z79.890 Hormone replacement therapy; Z91.040 Latex allergy status; Z98.41 Cataract extraction status, right eye; Z98.42 Cataract extraction status, left eye; Z98.890 Other specified postprocedural states
CPT/HCPCS: 88305; 45385; J2704

== ENCOUNTER → 2020-06-08 | Outpatient (CLI) | payer MEDICARE ==
--- NOTE | 2020-06-10 11:26 | MM ---
Reason for exam: screening (asymptomatic). Last mammogram was performed 1 year ago. History: Patient is postmenopausal, history of other cancer, and had first child at age 40. Family history of breast cancer in mother at age 84. Benign excisional biopsy of the left breast, March 25, 1997. Excisional biopsy of the right breast. Took other hormone for 10 months. Physical Findings: A clinical breast exam by your physician is recommended on an annual basis and results should be correlated with mammographic findings. MG 3D Screening Mammo W/Cad Bilateral CC and MLO view(s) were taken. Prior study comparison: June 05, 2019, bilateral MG 3d screening mammo w/cad. May 16, 2018, bilateral MG 3d screening mammo w/cad. The breast tissue is heterogeneously dense. This may lower the sensitivity of mammography. No significant changes when compared with prior studies. ASSESSMENT: Benign, BI-RAD 2 RECOMMENDATION: Routine screening mammogram of both breasts in 1 year.
== END | disposition home or self-care (01) ==
LOC: RADMAMWWP 09:59
PROVIDERS: ATTEND Internal Medicine
DX: Z12.31 Encounter for screening mammogram for malignant neoplasm of breast (principal)
CPT/HCPCS: 77063; 77067

== ENCOUNTER → 2020-07-06 | Outpatient (CLI) | payer MEDICARE ==
--- NOTE | 2020-07-06 14:18 | CT ---
EXAMINATION TYPE: CT ChestAbdPelvis w con DATE OF EXAM: 07/06/2020 COMPARISON: CT October 30, [address] June 13, 2018 HISTORY: Lymphoma progress study. Originally diagnosed in neck per patient. CT DLP: 322 mGycm. Automated Exposure Control for Dose Reduction was Utilized. CONTRAST: CT scan of the thorax, abdomen and pelvis is performed with oral and with IV Contrast, patient inject ed with 100 mL of Isovue 300. FINDINGS: LUNGS: The lungs remain grossly clear, there is no concerning new parenchymal mass or nodule identifi ed. There is no pleural effusion or pneumothorax seen. The tracheobronchial tree is patent. MEDIASTINUM: There are no new greater than 1 cm hilar or mediastinal lymph nodes. No pericardial ef fusion is seen. Stable mild cardiomegaly. Coronary artery calcification redemonstrated. OTHER: Prominent bilateral axillary lymph nodes which are enlarged in the left axilla but retain cent ral fatty hilum have similar appearance to last 2 CTs. No new one large and greater than 1 cm axillar y lymph nodes are present. LIVER/GB: No significant abnormality is appreciated. PANCREAS: No significant abnormality is seen. SPLEEN: No significant abnormality is seen. ADRENALS: No significant abnormality is seen. KIDNEYS: Stable low dense lesion laterally right kidney measuring 1.1 cm image 60 possible lipoma or angiomyolipoma as it is near fat density. BOWEL: Small-sized hiatal hernia redemonstrated. Oral contrast reaches level of cecum. No suspicious small or large bowel dilatation. Normal-appearing appendix incidentally noted. GENITAL ORGANS: Anteverted uterus with calcifications redemonstrated. Persistent ovoid 3.2 x 2.9 cm l esion right pelvis axial image 107 isodense to uterus, suspect subserosal fibroid. Pelvic cul-de-sac shows large calcified lesion similar to prior studies, possible additional calcified subserosal fibro id. LYMPH NODES: No new greater than 1cm abdominal or pelvic lymph nodes are appreciated. OSSEOUS STRUCTURES: Calcified intramedullary focus right subtrochanteric level coronal image [address] able favored chondroid lesion. No new focal lytic or sclerotic lesions. Stable grade 1 anterolisthesi s L4 on L5. Slight scoliotic curvature. Facet arthropathy greatest lower lumbar levels. OTHER: No significant additional abnormality is seen. IMPRESSION: Stable prominent bilateral axillary lymph nodes. No new mass or adenopathy to suggest act [place] lymphoma recurrence. No significant change from prior studies.
== END | disposition home or self-care (01) ==
LOC: RADCTMAIN 09:52
PROVIDERS: ATTEND Internal Medicine Hematology & Oncology
DX: C83.01 Small cell B-cell lymphoma, lymph nodes of head, face, and neck (principal); I89.8 Other specified noninfective disorders of lymphatic vessels and lymph nodes; Z91.040 Latex allergy status; Z88.8 Allergy status to other drugs, medicaments and biological substances
CPT/HCPCS: 82565; 84520; 71260; 74177; 36415; Q9967 ×2

== ENCOUNTER → 2021-01-28 | Outpatient (CLI) | payer MEDICARE | END | disposition home or self-care (01) | LOC: LABWHC1 14:43 | PROVIDERS: ATTEND Internal Medicine | DX: Z11.52 Encounter for screening for COVID-19 (principal); Z20.828 Contact with and (suspected) exposure to other viral communicable diseases | CPT/HCPCS: 36415; 86769 ==

== ENCOUNTER 2021-04-14 16:04 | Emergency (ER) | payer MEDICARE ==
--- NOTE | 2021-04-14 18:01 | ED ---
General Adult HPI - General Chief complaint: Upper Respiratory Infection Stated complaint: Covid +, congestion Time Seen by Provider: 04/14/21 17:17 Source: patient Mode of arrival: ambulatory Limitations: no limitations - History of Present Illness Initial comments: 71-year-old female with a past medical history of B-cell lymphoma, TIA, thyroid disorder presents to the emergency room for antibody infusion. Patient has had COVID-19 symptoms for the past 3 days. She states that she tested positive yesterday and does have the result with her. Patient states she has a cough and congestion. She denies shortness of breath. Patient states she is here for antibody infusion. She states her had this done last week.Patient has no other complaints at this time including shortness of breath, chest pain, abdominal pain, nausea or vomiting, headache, or visual changes. - Related Data Home Medications Medication Instructions Recorded Confirmed Levothyroxine Sodium [Synthroid] 100 mcg PO DAILY 02/10/15 05/08/20 Calcium Carbonate [Calcium] 600 mg PO BID 06/10/18 05/08/20 Cholecalciferol [Vitamin D3] 1,000 unit PO DAILY 06/10/18 05/08/20 Cocco 2 tab PO DAILY 06/10/18 05/08/20 Multivitamins, Thera [Multivitamin 1 tab PO DAILY 06/10/18 05/08/20 (formulary)] lisinopriL 20 mg PO HS 05/08/20 05/13/20 Allergies Allergy/AdvReac Type Severity Reaction Status Date / Time latex Allergy Anaphylaxis Verified 04/14/21 16:31 P-phenylenediamine Allergy Swelling Uncoded 04/14/21 16:31 Review of Systems ROS Statement: Those systems with pertinent positive or pertinent negative responses have been documented in the HPI. ROS Other: All systems not noted in ROS Statement are negative. Past Medical History Past Medical History: Cancer, CVA/TIA, Eye Disorder, Thyroid Disorder Additional Past Medical History / Comment(s): TIA yrs. ago without further problems.,. B-cell lymphoma History of Any Multi-Drug Resistant Organisms: None Reported Additional Past Surgical History / Comment(s): Infected milk duct yrs. ago. COLONOSCOPY X 3. CATARACT SX ron EYE. Lymph node removed in neck Past Anesthesia/Blood Transfusion Reactions: No Reported Reaction Past Psychological History: No Psychological Hx Reported Smoking Status: Never smoker Past Alcohol Use History: Occasional Past Drug Use History: None Reported - Past Family History Sister(s) Family Medical History: Cancer Mother Family Medical History: Cancer Additional Family Medical History / Comment(s): Breast Brother(s) Family Medical History: Cancer Additional Family Medical History / Comment(s): TWO BROTHERS WITH CANCER- P ancreatic and BLADDER General Exam Limitations: no limitations General appearance: alert, in no apparent distress Head exam: Present: atraumatic Eye exam: Present: normal appearance, PERRL, EOMI. Absent: scleral icterus, conjunctival injection ENT exam: Present: normal exam, mucous membranes moist Neck exam: Present: normal inspection, full ROM. Absent: tenderness Respiratory exam: Present: normal lung sounds bilaterally. Absent: respiratory distress, wheezes Cardiovascular Exam: Present: regular rate, normal rhythm, normal heart sounds GI/Abdominal exam: Present: soft, normal bowel sounds. Absent: distended, tenderness Neurological exam: Present: alert Course Vital Signs 04/14/21 16:31 Temperature 98.8 F Pulse Rate 80 Respiratory 20 Rate Blood Pressure 127/74 O2 Sat by Pulse 96 Oximetry Medical Decision Making - Medical Decision Making Vitals are stable. Patient is well appearing. No respiratory distress. Patient was given antibody infusion and monitored for one hour afterwards. Patient is stable for outpatient follow-up. She will return here for any worsening symptoms. Disposition Clinical Impression: COVID-19 Disposition: HOME SELF-CARE Condition: Good Instructions (If sedation given, give patient instructions): Coronavirus Disease 2019 (COVID-19) Additional Instructions: Please follow-up with your doctor in one to 2 days. Take [id number] vitamins especially C, D, and zinc. Take Motrin or Tylenol for fevers or body aches. Return to the emergency room for any worsening symptoms. Is patient prescribed a controlled substance at d/c from ED?: No Referrals: Jourdan Mendoza MD [Primary Care Provider] - 1-2 days Time of Disposition: 18:01
[2021-04-14] MEDS ORDERED: SODIUM CHLORIDE 0.9% 50 ML IVPB ONE (18:15)
[2021-04-14] MEDS ORDERED: BAMLANIVIMAB (EUA) 700 MG, ETESEVIMAB (EUA) 1,400 MG in SODIUM CHLORIDE 0.9% 50 ML IVPB ONE (18:30)
[2021-04-14 19:14] VITALS: RESP 18; TEMP 98.6
[2021-04-14 20:50] VITALS: BP 140/72; PULSE 72
== END 2021-04-14 20:45 | disposition home or self-care (01) ==
LOC: EC 16:04
DX: U07.1 COVID-19 (principal); E07.9 Disorder of thyroid, unspecified; Z88.8 Allergy status to other drugs, medicaments and biological substances; Z91.040 Latex allergy status; Z79.890 Hormone replacement therapy; Z86.73 Personal history of transient ischemic attack (TIA), and cerebral infarction without residual deficits
CPT/HCPCS: 99283; J3490

== ENCOUNTER → 2021-07-09 | Outpatient (CLI) | payer MEDICARE ==
--- NOTE | 2021-07-11 03:49 | CT ---
EXAMINATION TYPE: CT ChestAbdPelvis w con DATE OF EXAM: 07/09/2021 COMPARISON: CT dated 07/06/2020 HISTORY: Follow up for lymphoma. CT DLP: 1087 mGycm Automated exposure control for dose reduction was used. CONTRAST: CT scan of the chest, abdomen and pelvis is performed with Oral Contrast and with IV Contrast, patien t injected with 100ml mL of Isovue 300. FINDINGS: LUNGS: Newly seen right posterior lung apex small atelectasis with another small atelectasis in the r ight lower lobe. Stable 5 mm nodule at the medial aspect of the left lower lobe as well as the other scattered smaller nodules. No new or progressive lung nodule. Unremarkable lungs otherwise. Patent ce ntral airways. No pleural effusion. MEDIASTINUM: Unchanged prominent slightly enlarged axillary and to a lesser extent mediastinal and hi lar lymph nodes measuring up to 13 mm in the precarinal group, 10 mm in the right axilla and 13 mm in the left axilla. No progressive lymphadenopathy in the chest. Unchanged cardiomediastinal silhouette with scattered arterial and coronary atherosclerotic calcifications. No pericardial effusion. OTHER: Degenerative changes of the lower cervical and to a lesser extent the thoracic spine. No aggr essive bone lesion. LIVER/GB: No significant abnormality is appreciated. PANCREAS: Atrophic with fatty infiltration. SPLEEN: No significant abnormality is seen. ADRENALS: No significant abnormality is seen. KIDNEYS: Stable right lower pole renal angiomyolipoma, otherwise unremarkable kidneys. BOWEL: Unremarkable stomach, duodenum and small bowel. Moderate fecal loading of the colon. No gross colonic mass however a small lesion cannot be excluded. Normal appendix. REPRODUCTIVE ORGANS: Redemonstration of the previously seen right uterine lesion likely representing a fibroid with large posterior densely calcified lesion measuring up to 6.5 cm, seen between the uter us and the rectum, likely representing a large subserosal fibroid. No gross adnexal mass. LYMPH NODES: Grossly stable enlarged external iliac, common iliac, upper abdominal and retroperitonea l lymph nodes, measuring up to 18 mm in the right pelvic sidewall, 13 mm in the left external iliac g roup, 12 mm in the aortocaval region and 21 mm in rossi hepatis. No obvious progressive lymphadenopat hy in the abdomen or the pelvis. OSSEOUS STRUCTURES: Grade 1 anterolisthesis of L4 over L5 with severe bilateral L4-5 and L5-S1 facet osteoarthropathy. No aggressive bone lesion. OTHER: Scattered arterial atherosclerotic calcifications. No sizable ascites. IMPRESSION: Grossly stable enlarged lymph nodes in the chest, abdomen and the pelvis as described abo ve. No progressive lymphadenopathy or splenic enlargement to suggest lymphoma relapse. Other interval changes and incidental findings as described above.
== END | disposition home or self-care (01) ==
LOC: RADCTMAIN 11:45
PROVIDERS: ATTEND Internal Medicine Hematology & Oncology
DX: Z03.89 Encounter for observation for other suspected diseases and conditions ruled out (principal); C83.01 Small cell B-cell lymphoma, lymph nodes of head, face, and neck
CPT/HCPCS: 82565; 84520; 71260; 74177; 36415; Q9967

== ENCOUNTER → 2021-08-13 | Outpatient (CLI) | payer MEDICARE ==
--- NOTE | 2021-08-16 10:06 | MM ---
Reason for exam: screening (asymptomatic). Last mammogram was performed 1 year and 2 months ago. History: Patient is postmenopausal, history of other cancer, and had first child at age 40. Family history of breast cancer in mother at age 84. Benign excisional biopsy of the left breast, March 25, 1997. Excisional biopsy of the right breast, 1989. Took other hormone for 10 months. Physical Findings: A clinical breast exam by your physician is recommended on an annual basis and results should be correlated with mammographic findings. MG 3D Screening Mammo W/Cad Bilateral CC and MLO view(s) were taken. Prior study comparison: June 08, 2020, bilateral MG 3d screening mammo w/cad. June 05, 2019, bilateral MG 3d screening mammo w/cad. The breast tissue is heterogeneously dense. This may lower the sensitivity of mammography. Stable chronic nodularity left breast. No significant changes when compared with prior studies. ASSESSMENT: Benign, BI-RAD 2 RECOMMENDATION: Routine screening mammogram of both breasts in 1 year.
== END | disposition home or self-care (01) ==
LOC: RADMAMWWP 10:05
PROVIDERS: ATTEND Internal Medicine
DX: Z12.31 Encounter for screening mammogram for malignant neoplasm of breast (principal)
CPT/HCPCS: 77063; 77067

== ENCOUNTER → 2022-09-30 | Outpatient (CLI) | payer MEDICARE ==
--- NOTE | 2022-10-03 09:26 | MM ---
Reason for Exam: Screening (asymptomatic). Last mammogram was performed 1 year(s) and 2 month(s) ago. Patient History: Menarche at age 11. First Full-Term at age 40. Late child-bearing (after 30). Postmenopausal. Other cancer. 1989, Excisional Biopsy on the Right side. 03/25/1997, Benign Excisional Biopsy on the left side. Mother had breast cancer, age 84. Risk Values: Ofelia 5 year model risk: 5.3%. NCI Lifetime model risk: 11.9%. Prior Study Comparison: 06/05/2019 Bilateral Screening Mammogram, [facility]. 06/08/2020 Bilateral Screening Mammogram, [facility]. 08/13/2021 Bilateral Screening Mammogram, [facility]. Tissue Density: The breast tissue is heterogeneously dense. This may lower the sensitivity of mammography. Findings: Analyzed By CAD. There is no suspicious group of microcalcifications or new suspicious mass in either breast. Benign vascular calcifications within both breasts. Overall Assessment: Benign, BI-RAD 2 Management: Screening Mammogram of both breasts in 1 year. A clinical breast exam by your physician is recommended on an annual basis and results should be correlated with mammographic findings. Electronically signed and approved by: Ramon Clements D.O.
== END | disposition home or self-care (01) ==
LOC: RADMAMWWP 13:34
PROVIDERS: ATTEND Internal Medicine
DX: Z12.31 Encounter for screening mammogram for malignant neoplasm of breast (principal); Z78.0 Asymptomatic menopausal state; Z80.3 Family history of malignant neoplasm of breast
CPT/HCPCS: 77063; 77067

== ENCOUNTER 2022-10-06 12:44 | Observation (INO) | payer MEDICARE ==
--- NOTE | 2022-10-06 13:36 | ED ---
General Adult HPI - General Chief complaint: Altered Mental Status Stated complaint: Mental Health Time Seen by Provider: 10/06/22 13:21 Source: patient, RN notes reviewed Mode of arrival: wheelchair Limitations: no limitations - History of Present Illness Initial comments: Patient is a pleasant 72-year-old female presenting to the emergency department with concern confusion. Patient did have a fall around 10 days ago however denies head injury at that time. Patient did have an episode lasting several hours yesterday where she felt somewhat confused. Patient was golfing and was using the wrong clubs. No weakness. No loss of sensation. No speech problems. Patient has been fatigued and just feels off. states patient may be somewhat confused as well however has difficulty describing this. - Related Data Home Medications Medication Instructions Recorded Confirmed Levothyroxine Sodium [Synthroid] 100 mcg PO DAILY 02/10/15 10/06/22 lisinopriL [Zestril] 10 mg PO DAILY 10/06/22 10/06/22 Allergies Allergy/AdvReac Type Severity Reaction Status Date / Time latex Allergy Anaphylaxis Verified 10/06/22 13:53 P-phenylenediamine Allergy Swelling Uncoded 10/06/22 13:12 Review of Systems ROS Statement: Those systems with pertinent positive or pertinent negative responses have been documented in the HPI. ROS Other: All systems not noted in ROS Statement are negative. Constitutional: Denies: fever Eyes: Denies: eye pain ENT: Denies: ear pain Respiratory: Denies: cough Cardiovascular: Denies: chest pain Endocrine: Denies: fatigue Gastrointestinal: Denies: abdominal pain Genitourinary: Denies: dysuria Musculoskeletal: Denies: back pain Skin: Denies: rash Neurological: Reports: as per HPI, confusion. Denies: headache, weakness Past Medical History Past Medical History: Cancer, CVA/TIA, Eye Disorder, Thyroid Disorder Additional Past Medical History / Comment(s): TIA yrs. ago without further problems.,. B-cell lymphoma History of Any Multi-Drug Resistant Organisms: None Reported Additional Past Surgical History / Comment(s): Infected milk duct yrs. ago. COLONOSCOPY X 3. CATARACT SX ron EYE. Lymph node removed in neck Past Anesthesia/Blood Transfusion Reactions: No Reported Reaction Past Psychological History: No Psychological Hx Reported Smoking Status: Never smoker Past Alcohol Use History: Occasional Past Drug Use History: None Reported - Past Family History Sister(s) Family Medical History: Cancer Mother Family Medical History: Cancer Additional Family Medical History / Comment(s): Breast Brother(s) Family Medical History: Cancer Additional Family Medical History / Comment(s): TWO BROTHERS WITH CANCER- Pancreatic and BLADDER General Exam Limitations: no limitations General appearance: alert, in no apparent distress, other (No repetitiveness noted) Head exam: Present: atraumatic, normocephalic Eye exam: Present: normal appearance, PERRL, EOMI ENT exam: Present: normal oropharynx Neck exam: Present: normal inspection Respiratory exam: Present: normal lung sounds bilaterally Cardiovascular Exam: Present: regular rate, normal rhythm GI/Abdominal exam: Present: soft. Absent: tenderness Extremities exam: Present: normal inspection Neurological exam: Present: alert, CN II-XII intact. Absent: motor sensory deficit Expanded Neurological exam: Present: protecting the airway Speech: Present: fluid speech Motor strength exam: RUE: 5, LUE: 5, RLE: 5, LLE: 5 Eye Response: (4) open spontaneously Motor Response: (6) obeys commands Verbal Response: (5) oriented Psychiatric exam: Present: normal affect, normal mood Skin exam: Present: normal color Course Vital Signs 10/06/22 13:05 Temperature 98.0 F Pulse Rate 68 Respiratory 20 Rate Blood Pressure 117/72 O2 Sat by Pulse 97 Oximetry EKG Findings - EKG Results: EKG: interpreted by ERMD, sinus rhythm, normal axis, normal QRS, normal ST/T Medical Decision Making - Medical Decision Making Was pt. sent in by a medical professional or institution (Dr. PA, COURT [employer], urgent care, hospital, or penitentiary...) When possible be specific @ -No Did you speak to anyone other than the patient for history (EMS, parent, family, police, friend...)? What history was obtained from this source @ - is present and helps provide history including is concern for patient having some confusion Did you review nursing and triage notes (agree or disagree)? Why? @ -I reviewed and agree with nursing and triage notes Were old charts reviewed (outside hosp., previous admission, EMS record, old EKG, old radiological studies, urgent care reports/EKG's, penitentiary records)? Report findings @ -No old charts were reviewed Differential Diagnosis (chest pain, altered mental status, abdominal pain women, abdominal pain men, vaginal bleeding, weakness, fever, dyspnea, syncope, headache, dizziness, GI bleed, back pain, seizure, CVA, palpatations, mental health)? @ -Differential Altered Mental Status: Hypoglycemia, DKA, hypercapnia, ETOH, overdose, CO poisoning, trauma, myxedema coma, HTN encephalopathy, infection, encephalitis, psychosis, intercranial hemorrhage, hepatic encephalopathy, meningitis, CVA, this is not meant to be an all-inclusive list EKG interpreted by me (3pts min.). @ -As above X-rays interpreted by me (1pt min.). @ -Chest x-ray has concern for right upper lobe infiltrate CT interpreted by me (1pt min.). @ -None done U/S interpreted by me (1pt. min.). @ -None done What testing was considered but not performed or refused? (CT, X-rays, U/S, labs)? Why? @ -None What meds were considered but not given or refused? Why? @ -None Did you discuss the management of the patient with other professionals (professionals i.e. , PA, COURT [employer], lab, RT, psych nurse, psychologist social, public health sanitarian technician, teacher, residential care officer, community case manager)? Give summary @ -Case was discussed with Dr. Little who would like to admit his patient with aspirin and statin as well as CT chest. He does request consult with neurology and pulmonary Was smoking cessation discussed for >3mins.? @ -No Was critical care preformed (if so, how long)? @ -No Were there social determinants of health that impacted care today? How? (Ho melessness, low income, unemployed, alcoholism, drug addiction, transportation, low edu. Level, literacy, decrease access to med. care, fci, rehab)? @ -No Was there de-escalation of care discussed even if they declined (Discuss DNR or withdrawal of care, Hospice)? DNR status @ -No What co-morbidities impacted this encounter? (DM, HTN, Smoking, COPD, CAD, Cancer, CVA, ARF, Chemo, Hep., AIDS, mental health diagnosis, sleep apnea, morbid obesity)? @ -None Was patient admitted / discharged? Hospital course, mention meds given and route, prescriptions, significant lab abnormalities, going to OR and other pertinent info. @ -Patient reevaluated and resting comfortably in bed. Patient and family updated on results and plan. Admission orders 1. Undiagnosed new problem with uncertain prognosis? @ -No Drug Therapy requiring intensive monitoring for toxicity (Heparin, Nitro, Insulin, Cardizem)? @ -No Were any procedures done? @ -No Diagnosis/symptom? @ -TIA, pneumonia Acute, or Chronic, or Acute on Chronic? @ -Acute, acute Uncomplicated (without systemic symptoms) or Complicated (systemic symptoms)? @ -default Side effects of treatment? @ -No Exacerbation, Progression, or Severe Exacerbation? @ -No Poses a threat to life or bodily function? How? (Chest pain, USA, AR, pneumonia, PE, COPD, DKA, ARF, appy, cholecystitis, CVA, Diverticulitis, Homicidal, Suicidal, threat to staff... and all critical care pts) @ -No - Lab Data Result diagrams: 10/06/22 14:30 10/06/22 14:30 Lab Results 10/06/22 10/06/22 10/06/22 Range/Units 14:30 14:30 14:30 WBC 12.9 H (3.8-10.6) k/uL RBC 3.26 L (3.80-5.40) m/uL Hgb 10.7 L (11.4-16.0) gm/dL Hct 31.7 L (34.0-46.0) % MCV 97.2 (80.0-100.0) fL MCH 32.9 (25.0-35.0) pg MCHC 33.8 (31.0-37.0) g/dL RDW 12.3 (11.5-15.5) % Plt Count 314 (150-450) k/uL MPV 8.2 PT 10.5 (9.0-12.0) sec INR 1.0 (<1.2) APTT 25.7 (22.0-30.0) sec Sodium 133 L (137-145) mmol/L Potassium 4.4 (3.5-5.1) mmol/L Chloride 99 (98-107) mmol/L Carbon Dioxide 24 (22-30) mmol/L Anion Gap 10 mmol/L BUN 18 H (7-17) mg/dL Creatinine 0.61 (0.52-1.04) mg/dL Est GFR (CKD-EPI)AfAm >90 (>60 ml/min/1.73 sqM) Est GFR (CKD-EPI)NonAf 90 (>60 ml/min/1.73 sqM) Glucose 105 H (74-99) mg/dL Calcium 8.5 (8.4-10.2) mg/dL Total Bilirubin 0.6 (0.2-1.3) mg/dL AST 56 H (14-36) U/L ALT 42 H (4-34) U/L Alkaline Phosphatase 135 H (38-126) U/L Total Protein 6.7 (6.3-8.2) g/dL Albumin 3.6 (3.5-5.0) g/dL Disposition Clinical Impression: TIA (transient ischemic attack), Pneumonia Disposition: ADMITTED IP TO THIS HOSP Is patient prescribed a controlled substance at d/c from ED?: No Referrals: Olivia Little MD [Primary Care Provider] - 1-2 days Time of Disposition: 15:17
[2022-10-06 14:36] LABS: HCT 31.7 % (34.0-46.0); HGB 10.7 gm/dL (11.4-16.0); MCH 32.9 pg (25.0-35.0); MCHC 33.8 g/dL (31.0-37.0); MCV 97.2 fL (80.0-100.0); Mean Platelet Volume 8.2; Platelet Count 314 k/uL (150-450); RBC 3.26 m/uL (3.80-5.40); RDW 12.3 % (11.5-15.5); WBC 12.9 k/uL (3.8-10.6)
[2022-10-06 14:53] LABS: ALT 42 U/L (4-34); AST 56 U/L (14-36); African American GFR (CKD) >90 (>60 ml/min/1.73 sqM); Albumin 3.6 g/dL (3.5-5.0); Alkaline Phosphatase 135 U/L (38-126); Anion Gap 10 mmol/L; Blood Urea Nitrogen 18 mg/dL (7-17); Calcium 8.5 mg/dL (8.4-10.2); Carbon Dioxide 24 mmol/L (22-30); Chloride 99 mmol/L (98-107); Glucose 105 mg/dL (74-99); Non-African American GFR(CKD) 90 (>60 ml/min/1.73 sqM); Potassium 4.4 mmol/L (3.5-5.1); Sodium 133 mmol/L (137-145); Total Bilirubin 0.6 mg/dL (0.2-1.3); Total Protein 6.7 g/dL (6.3-8.2)
--- NOTE | 2022-10-06 14:53 | CT ---
EXAMINATION TYPE: CT brain wo con CT DLP: 1153.4 mGycm, Automated exposure control for dose reduction was used. DATE OF EXAM: 10/06/2022 2:43 PM COMPARISON: None. CLINICAL INDICATION:Female, 72 years old with history of Altered mental status, ams TECHNIQUE: Brain: Multiple axial CT images of the brain were obtained without IV contrast. Coronal and sagittal reformats reviewed. FINDINGS: Brain: Extra-axial spaces: No abnormal extra-axial fluid collections. Ventricular system: Within normal limits Cerebral parenchyma: No acute intraparenchymal hemorrhage or mass effect. Age-indeterminate lacunar i njuries involving the left frontal lobe farris radiata and basal ganglia. The nuñez-white junction is well differentiated. Scattered hypoattenuating areas are seen within the white matter. Cerebellum: Unremarkable. Mass effect: No evidence of midline shift. Intracranial vasculature: Atherosclerotic calcifications of the intracranial vessels. Soft tissues: Normal. Calvarium/osseous structures: No depressed skull fracture. Paranasal sinuses and mastoid air cells: Clear Visualized orbits: Bilateral aphakia IMPRESSION: Age-indeterminate lacunar injuries involving the left frontal lobe farris radiata and basal ganglia. No acute hemorrhage. Nonspecific white matter changes likely related to chronic small vessel ischemic disease. Consider further evaluation with MRI.
[2022-10-06 14:55] LABS: Partial Thromboplastin Time 25.7 sec (22.0-30.0); Prothrombin Time 10.5 sec (9.0-12.0)
--- NOTE | 2022-10-06 15:15 | XR ---
EXAMINATION TYPE: XR chest 2V DATE OF EXAM: 10/06/2022 2:47 PM COMPARISON: Chest radiographs from 06/10/2018, CT chest and pelvis 07/08/2022 TECHNIQUE: XR chest 2V Frontal and lateral views of the chest. CLINICAL INDICATION:Female, 72 years old with history of altered mental status; FINDINGS: Lungs/Pleura: No pleural effusion or pneumothorax. Patchy right upper lobe airspace opacities now dem onstrated. Pulmonary vascularity: Unremarkable. Heart/mediastinum: Cardiomediastinal silhouette is enlarged. Atherosclerotic calcifications are seen in the aorta. Musculoskeletal: No acute osseous pathology. IMPRESSION: Patchy right upper lobe airspace opacities concerning for pneumonia. Continued follow-up is recommend ed.
[2022-10-06] MEDS ORDERED: PNEUMONIA PROTOCOL UTILIZED 1 EACH MISC PO PRN (15:20)
[2022-10-06] MEDS ORDERED: ASPIRIN 325 MG TAB PO STA (15:20)
[2022-10-06] MEDS ORDERED: AZITHROMYCIN 500 MG in SODIUM CHLORIDE 0.9% 250 ML IVPB STA (15:20)
[2022-10-06 15:39] LABS: Lymphocytes # (M) 10.58 k/uL (1.0-4.8); Monocytes # (M) 0.26 k/uL (0-1.0); Neutrophils # (M) 2.06 k/uL (1.3-7.7); Neutrophils % (M) 16 %; Nucleated Red Blood Cells 0 /100 WBC (0-0); Total Cells Counted 100
[2022-10-06 15:41] LABS: Large Platelets Present; Polychromasia Present
--- NOTE | 2022-10-06 16:29 | CT ---
EXAMINATION TYPE: CT angio chest CT DLP: 304.5 mGycm, Automated exposure control for dose reduction was used. DATE OF EXAM: 10/06/2022 4:19 PM COMPARISON: CT chest abdomen pelvis 07/08/2022, chest radiograph 10/18/2022 CLINICAL INDICATION:Female, 72 years old with history of dyspnea; Dyspnea. TECHNIQUE/CONTRAST: CTA scan of the thorax is performed with IV Contrast, patient injected with 62ml mL of Isovue 370, pu lmonary embolism protocol. MIP images are created and reviewed. FINDINGS: Pulmonary Artery: There is no evidence for a filling defect within the pulmonary vasculature to sugge st acute pulmonary embolism. The pulmonary artery is of normal size. Lungs/Pleura: No pleural effusion or pneumothorax. Patchy right upper lobe groundglass opacities. Sta ble left lower lobe 3 mm pulmonary nodule (series 406, image 123). Airway: Large airways are patent. Heart: Heart is within normal limits for size. No pericardial effusion. Mild to moderate coronary art monique calcifications. Vasculature: No evidence of aortic aneurysm. Mediastinum: There are mildly enlarged mediastinal lymph nodes with example including a precarinal ly mph node measuring 1.2 cm short axis. Enlarged right hilar lymph nodes measuring up to 1.5 cm short a xis. Musculoskeletal: No acute osseous abnormalities. Mild multilevel degenerative disc disease. Soft Tissues: Stable prominent bilateral axillary lymph nodes. Lower neck: No significant findings. Upper Abdomen: Small hiatal hernia. IMPRESSION: 1. No evidence of pulmonary embolism. 2. Patchy groundglass opacities within the right upper lobe suspicious for atypical pneumonia. 3. Likely reactive mediastinal and right hilar lymphadenopathy secondary to #2.
[2022-10-06] MEDS: ATORVASTATIN 40 MG TAB PO SCH (16:43)
[2022-10-06] MEDS: SODIUM CHLORIDE 0.9% 1,000 ML IV SCH ×2 (16:43→18:04)
--- NOTE | 2022-10-06 18:13 | US ---
EXAMINATION TYPE: US carotid duplex BILAT DATE OF EXAM: 10/06/2022 COMPARISON: NONE CLINICAL INDICATION: Female, 72 years old with history of Stenosis; pt has had episodes of confusion TECHNIQUE: Carotid duplex ultrasound examination. Indirect Doppler criteria was utilized. 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 Mild plaque seen in left bulb. IMPRESSION: Less than 50% stenosis of the bilateral carotid bifurcation. Criteria for Assigning % of Stenosis / Diameter reduction (Estimation based on the indirect measurements of the internal carotid artery velocities (ICA PSV). 1. Normal (no stenosis)=ICA PSV < 125 cm/s: ratio < 2.0: ICA EDV<40 cm/s. 2. Less than 50% stenosis=ICA PSV < 125 cm/s: ratio < 2.0: ICA EDV<40 cm/s. 3. 50 to 69% stenosis=ICA PSV of 125 to 230 cm/s: ration 2.0 ? 4.0: ICA EDV 40-100 cm/s. 4. Greater than 70% stenosis to near occlusion= ICA PSV > 230 cm/s: ratio > 4.0: ICA EDV > 100 cm/s. 5. Near occlusion= ICA PSV velocities may be low or undetectable: variable ratio and ICA EDV. 6. Total occlusion=unable to detect flow.
[2022-10-07] MEDS: LEVOTHYROXINE 100 MCG TAB PO SCH (06:15)
--- NOTE | 2022-10-07 08:19 | XR ---
EXAMINATION TYPE: XR chest 1V DATE OF EXAM: 10/07/2022 5:08 AM COMPARISON: Chest radiographs from 10/06/2022 TECHNIQUE: XR chest 1V Frontal view of the chest. CLINICAL INDICATION:Female, 72 years old with history of pneumonia; FINDINGS: Lungs/Pleura: Upper lobe airspace opacity similar prior There is no evidence of pleural effusion, foc al consolidation, or pneumothorax. Pulmonary vascularity: Unremarkable. Heart/mediastinum: Cardiomediastinal silhouette is unremarkable. Musculoskeletal: No acute osseous pathology. IMPRESSION: Right Upper lobe airspace opacities are similar to prior.
[2022-10-07] MEDS: ATORVASTATIN 40 MG TAB PO SCH (08:40)
[2022-10-07] MEDS: lisinopriL 10 MG TAB PO SCH (08:40)
[2022-10-07] MEDS: ASPIRIN 325 MG TAB PO SCH (08:43)
[2022-10-07 09:27] LABS: LDL Cholesterol,Calculated 124.5 mg/dL (0.0-131.0); VLDL Calculation 15.62 mg/dL (5.00-40.00)
[2022-10-07] MEDS: AZITHROMYCIN 500 MG TAB PO SCH (11:50)
[2022-10-07] MEDS: SODIUM CHLORIDE 0.9% 1,000 ML IV SCH ×2 (14:00→22:15)
--- NOTE | 2022-10-07 14:11 | P.CNPUL ---
History of Present Illness Consult date: 10/07/22 Requesting physician: Olivia Little Reason for consult: abnormal CXR/CT Chief complaint: Altered mental status History of present illness: This is a very pleasant 72-year-old female patient who is a lifelong nonsmoker with history of hypothyroidism, hypertension, and non-Hodgkin's lymphoma. Her m ost recent computed tomography scan of the chest abdomen and pelvis from 07/08/2022 revealed unchanged mild Adenopathy within the chest abdomen pelvis. No progressive adenopathy noted. This is compared to June 2021. She presented here to the emergency room yesterday after developing altered mental status while out golfing yesterday. She was doing things that were abnormal for her and her friend who was with her noted some changes. She was having memory loss and some confusion. Computed tomography scan of the brain revealed age indeterminant lactic, and her injuries involving the left frontal lobe were not radiata and basal ganglia. No acute hemorrhage. Nonspecific white matter shearer es likely related to chronic small vessel ischemic disease. Carotid Doppler revealed less than 50% stenosis bilaterally. Chest x-ray revealed some right upper lobe airspace opacities. CT angiogram revealed no evidence of pulmonary embolism. There is patchy groundglass opacities in the right upper lobe suspicious for atypical pneumonia. Likely reactive mediastinal and right hilar lymphadenopathy. White count 12.9. Hemoglobin 10.7. Platelets 314. Sodium 133. Potassium 4.4. Bicarb 24. BUN 18. Creatinine 0.61. Lactic acid 0.6. AST 56. ALT 42. Influenza screen negative. RSV screen negative. COVID-19 screen negative. Pro-calcitonin pending. She is seen today in consultation in the emergency department. She is currently still sitting up on the stretcher. Awake and alert in no acute distress. She denies any worsening shortness of breath, cough or congestion. No fever or chills. No pulmonary complaints. Maintaining O2 saturations in the mid to upper 90s on room air. She's been afebrile. Hemodynamically stable. Review of Systems REVIEW OF SYSTEMS: CONSTITUTIONAL: Positive for altered mental status. Denies any recent significant weight loss or weight gain. EYES: Denies change in vision. EARS, NOSE, MOUTH, THROAT: Denies headaches, denies sore throat. CARDIOVASCULAR: Denies chest pain, palpitations or syncopal episodes. RESPIRATORY: Denies shortness of breath, cough, congestion or hemoptysis. GASTROINTESTINAL: Denies change in appetite, denies abdominal pain GENITOURINARY: Denies hematuria, denies infections. MUSKULOSKELETAL: Denies pain, denies swelling. INTEGUMENTARY: Denies rash, denies eczema. NEUROLOGICAL: Denies recent memory loss, no recent seizure activity. PSYCHIATRIC: Denies anxiety, denies depression. HEMATOLOGIC/LYMPHATIC: Denies anemia, denies enlarged lymph nodes. Past Medical History Past Medical History: Cancer, CVA/TIA, Eye Disorder, Thyroid Disorder Additional Past Medical History / Comment(s): TIA yrs. ago without further problems.,. B-cell lymphoma History of Any Multi-Drug Resistant Organisms: None Reported Additional Past Surgical History / Comment(s): Infected milk duct yrs. ago. COLONOSCOPY X 3. CATARACT SX ron EYE. Lymph node removed in neck Past Anesthesia/Blood Transfusion Reactions: No Reported Reaction Past Psychological History: No Psychological Hx Reported Smoking Status: Never smoker Past Alcohol Use History: Occasional Past Drug Use History: None Reported - Past Family History Sister(s) Family Medical History: Cancer Mother Family Medical History: Cancer Additional Family Medical History / Comment(s): Breast Brother(s) Family Medical History: Cancer Additional Family Medical History / Comment(s): TWO BROTHERS WITH CANCER- Pancreatic and BLADDER Medications and Allergies Home Medications Medication Instructions Recorded Confirmed Type Levothyroxine Sodium [Synthroid] 100 mcg PO DAILY 02/10/15 10/06/22 History lisinopriL [Zestril] 10 mg PO DAILY 10/06/22 10/06/22 History Allergies Allergy/AdvReac Type Severity Reaction Status Date / Time latex Allergy Anaphylaxis Verified 10/06/22 13:53 P-phenylenediamine Allergy Swelling Uncoded 10/06/22 13:12 Physical Exam Vitals: Vital Signs Temp Pulse Pulse Resp BP BP Pulse Ox 10/07/22 13:12 97.8 F 64 18 116/72 99 10/07/22 12:30 57 L 18 101/62 98 10/07/22 10:22 97.8 F 64 20 105/68 96 10/07/22 08:38 60 18 125/74 98 10/07/22 06:17 60 16 103/66 97 10/07/22 04:00 98 F 64 16 112/76 98 10/07/22 03:00 62 16 97 10/07/22 00:00 97.9 F 61 15 118/70 97 10/06/22 21:09 96 10/06/22 18:07 70 16 115/72 98 10/06/22 16:20 67 125/86 99 10/06/22 16:08 95 10/06/22 15:57 67 18 137/77 99 Intake and Output 10/06/22 10/07/22 10/07/22 22:59 06:59 14:59 Other: Weight 78.018 kg GENERAL EXAM: Alert, oriented 3, pleasant 72-year-old female, on room air, comfortable in no apparent distress. HEAD: Normocephalic. EYES: Normal reaction of pupils, equal size. NOSE: Clear with pink turbinates. THROAT: No erythema or exudates. NECK: No masses, no JVD. CHEST: No chest wall deformity. LUNGS: Equal air entry with no crackles, wheeze, rhonchi or dullness. CVS: S1 and S2 normal with no audible murmur, regular rhythm. ABDOMEN: No hepatosplenomegaly, normal bowel sounds, no guarding or rigidity. SPINE: No scoliosis or deformity SKIN: No rashes CENTRAL NERVOUS SYSTEM: No focal deficits, tone is normal in all 4 extremities. EXTREMITIES: There is no peripheral edema. No clubbing, no cyanosis. Peripheral pulses are intact. Results - Laboratory Findings CBC and BMP: 10/06/22 14:30 10/06/22 14:30 PT/INR, D-dimer PT 10.5 sec (9.0-12.0) 10/06/22 14:30 INR 1.0 (<1.2) 10/06/22 14:30 Abnormal lab findings: Abnormal Labs 10/06/22 10/06/22 10/06/22 09:00 14:30 14:30 WBC 12.9 H RBC 3.26 L Hgb 10.7 L Hct 31.7 L Lymphocytes # (Manual) 10.58 H Sodium 133 L BUN 18 H Glucose 105 H Plasma Lactic Acid Kunal AST 56 H ALT 42 H Alkaline Phosphatase 135 H HDL Cholesterol 37.90 L 10/06/22 15:33 WBC RBC Hgb Hct Lymphocytes # (Manual) Sodium BUN Glucose Plasma Lactic Acid Kunal 0.6 L AST ALT Alkaline Phosphatase HDL Cholesterol - Diagnostic Findings Chest x-ray: image reviewed CT scan - chest: image reviewed Assessment and Plan Assessment: Altered mental status of unclear etiology. Could be related to possible early pneumonia in the right upper lobe with patchy groundglass opacities. However no pulmonary complaints. RSV negative. COVID-19 negative. Influenza screen negative. Pro-calcitonin pending. Initiated on ceftriaxone and azithromycin Previous history of TIA. Computed tomography scan of the brain revealed age- indeterminate lacunar injuries involving the left frontal lobe chronic radiata and basal ganglia. No acute hemorrhage. Carotid Dopplers revealed less than 50% stenosis bilaterally. History of non-Hodgkin's lymphoma. Recent computed tomography scan of the chest, abdomen, pelvis revealed no progression of mild adenopathy Hypothyroidism Hypertension Plan: The patient was seen and evaluated Chest x-ray, CT angiogram, labs and medications reviewed Check a pro-calcitonin Continue ceftriaxone and azithromycin for now Currently stable and on room air Neurology workup pending We will continue to follow and make further recommendations based on her clinical status I have personally seen and examined the patient, performed the documentation and the assessment and plan as written. Number of minutes spent on the visit: 20.
--- NOTE | 2022-10-07 14:46 | P.HPIM ---
History of Present Illness H&P Date: 10/07/22 HISTORY OF PRESENT ILLNESS This is a 72-year-old female with past medical history of hypertension, hypothyroidism, small B-cell non-Hodgkin's lymphoma, stress incontinence, mixed hyperlipidemia, aortic valve insufficiency, carotid artery stenosis bilaterally, osteopenia of the right hip. Patient presented to [facility] emergency center due to confusion. Patient gives history that Monday she was out golfing in the morning with friends and felt a little lightheaded and hazy feeling. She denied having any weakness and no numbness or tingling. She came back home and felt very exhausted and went to bed and slept for a number of hours. At 4 PM she got up to go golfing again with a different friend. She was in the miniature train driver's seat of the car and went go driving on the green she was also using the wrong clubs and in general just seemed to be off mentally. She again did not have any weakness and did not have any numbness or tingling and no change in his age. After she golfed in the evening she went home and climbed into bed with her golfed close on and went to sleep. She states her appetite has been good. She denies having any cough or sputum production. No fever or chills. She did have travel to [place] 3 weeks ago but did not feel ill while away. She's had no vomiting no diarrhea. She feels that she is feeling better now but it appears her mental status is slightly off as when leaving the room, patient got up and grabbed her IV bag and was going to walk less out to the door. WBC 12.9, hemoglobin 10.7, platelet count 314. INR 1.0. Sodium 133, potassium 4.4, chloride 99, CO2 24, BUN 18 and creatinine 0.6. Glucose 105. Lactic acid 0.6. Calcium 8.5. Total bilirubin 0.6. AST 56, ALT 42, alkaline phosphatase 135. Total protein 6.7 and albumin 3.6. Cholesterol 78, LDL 178, HDL 124. Influenza A, influenza B, RSV and Covid 19 not detected. CAT scan of the brain reveals age indeterminate lacunar injuries involving the left frontal lobe farris radiata and basal ganglia. No acute hemorrhage. C hronic small vessel ischemic disease. EKG sinus rhythm with no acute ST changes. Chest x-ray reveals patchy right upper lobe airspace opacities concerning for pneumonia. CTA of the chest revealed no evidence of pulmonary embolism. Patchy groundglass opacities within the right upper lobe suspicious for atypical pneumonia. Likely reactive mediastinal and right hilar lymphadenopathy secondary to #2. Carotid ultrasounds revealed less than 50% stenosis of bilateral carotid bifurcation. Repeat chest x-ray reveals right upper lobe airspace opacities similar to prior. Patient was started on azithromycin and ceftriaxone. Consult in place with pulmonary medicine and neurology.. REVIEW OF SYSTEMS Constitutional: No fever, no chills, no night sweats. No weight change. No weakness, fatigue or lethargy. Reported daytime sleepiness. EENT: No headache. No blurred vision or double vision, no loss of vision. No loss of Hearing, no ringing in the ears, no dizziness. No nasal drainage or congestion. No epistaxis. No sore throat. Lungs: No shortness of breath, cough, no sputum production. No wheezing. Cardiovascular: No chest pain, no lower extremity edema. No palpitations. No paroxysmal nocturnal dyspnea. No orthopnea. No lightheadedness or dizziness. No syncopal episodes. Abdominal: No abdominal pain. No nausea, vomiting. No diarrhea. No constipation. No bloody or tarry stools. No loss of appetite. Genitourinary: No dysuria, increased frequency, urgency. No urinary retention. Musculoskeletal: No myalgias. No muscle weakness, no gait dysfunction, no frequent falls. No back pain. No neck pain. Integumentary: No wounds, no lesions. No rash or pruritus. No unusual bruising. No change in hair or nails. Neurologic: No aphasia. No facial droop. Mild change in mentation. No head injury. No headache. No paralysis. No paresthesia. Psychiatric: No depression. No anxiety. No mood swings. Endocrine: No abnormal blood sugars. No weight change. No excessive sweating or thirst. No cold intolerance. MEDICAL HISTORY Hypertension Hypothyroidism Small B-cell Non-Hodgkin's lymphoma, no chemotherapy, no radiation therapy, follows with Dr. Will Stress incontinence Hyperlipidemia Aortic valve insufficiency Aortic artery stenosis bilaterally Osteopenia of the right hip SURGICAL HISTORY Bilateral cataract removal and intraocular lens implants Colonoscopy Posterior cervical lymph node excision SOCIAL HISTORY Patient is a lifelong nonsmoker, no marijuana use, alcohol use 2-3 times per week. Patient lives at home with her is very active. FAMILY HISTORY Father at age 52 from HI. Mother at age 82 from breast cancer and sepsis. Patient has one brother at age 60 from pancreatic cancer. One brother at age 69 from HI. Patient is one sister that at age 57 from an HL. Patient has one son healthy with no major medical problems PHYSICAL EXAMINATION Gen: This is a 72-year-old female. She is resting on recliner and appears to be comfortable. HEENT: Head is atraumatic, normocephalic. Pupils equal, round. Sclerae is anicteric. NECK: Supple. No JVD. No lymphadenopathy. No thyromegaly. LUNGS: Egophony right upper lobe. No wheezes or rhonchi. No intercostal retractions. HEART: Regular rate and rhythm. No murmur. ABDOMEN: Soft. Bowel sounds are present. No masses. No tenderness. EXTREMITIES: No pedal edema. No calf tenderness. NEUROLOGICAL: Patient is awake, alert and oriented x3. Cranial nerves 2 through 12 are grossly intact. ASSESSMENT AND PLAN 1. Right upper lobe pneumonia. Consult with pulmonary medicine, continue patient on antibiotics in form of azithromycin and ceftriaxone. Legionella antigen, pro-calcitonin and blood cultures in progress. Unable to obtain sputum culture. 2. Mental status changes, metabolic encephalopathy possibly related to TIA. Consult with neurology, PT, OT, ST consults. Continue patient on aspirin 325 mg daily, Lipitor 40 mg daily for secondary prevention. Obtain echocardiogram and MRI of the brain with and without contrast. 3. Hypertension. Continue lisinopril 10 mg daily. 4. Hypothyroidism. Continue levothyroxine 100 g daily. Recent TSH 3.08 5. Hyperlipidemia. Continue atorvastatin 40 mg daily. 6. Small B-cell non-Hodgkin's lymphoma, in remission. 7. GI prophylaxis. Protonix. 8. DVT prophylaxis. Lovenox. Patient will be admitted to the hospital for a minimum of 2 night stay. DISCHARGE PLAN Return home. Impression and plan of care have been directed as dictated by the signing physician. Verónica Paz nurse practitioner acting as scribe for signing physician. Past Medical History Past Medical History: Cancer, CVA/TIA, Eye Disorder, Thyroid Disorder Additional Past Medical History / Comment(s): TIA yrs. ago without further problems.,. B-cell lymphoma History of Any Multi-Drug Resistant Organisms: None Reported Additional Past Surgical History / Comment(s): Infected milk duct yrs. ago. COLONOSCOPY X 3. CATARACT SX ron EYE. Lymph node removed in neck Past Anesthesia/Blood Transfusion Reactions: No Reported Reaction Past Psychological History: No Psychological Hx Reported Smoking Status: Never smoker Past Alcohol Use History: Occasional Past Drug Use History: None Reported - Past Family History Sister(s) Family Medical History: Cancer Mother Family Medical History: Cancer Additional Family Medical History / Comment(s): Breast Brother(s) Family Medical History: Cancer Additional Family Medical History / Comment(s): TWO BROTHERS WITH CANCER- Pancreatic and BLADDER Medications and Allergies Home Medications Medication Instructions Recorded Confirmed Type Levothyroxine Sodium [Synthroid] 100 mcg PO DAILY 02/10/15 10/06/22 History lisinopriL [Zestril] 10 mg PO DAILY 10/06/22 10/06/22 History Allergies Allergy/AdvReac Type Severity Reaction Status Date / Time latex Allergy Anaphylaxis Verified 10/06/22 13:53 P-phenylenediamine Allergy Swelling Uncoded 10/06/22 13:12 Physical Exam Vitals: Vital Signs Temp Pulse Resp BP Pulse Ox 10/07/22 08:38 60 18 125/74 98 10/07/22 06:17 60 16 103/66 97 10/07/22 04:00 98 F 64 16 112/76 98 10/07/22 03:00 62 16 97 10/07/22 00:00 97.9 F 61 15 118/70 97 10/06/22 21:09 96 10/06/22 18:07 70 16 115/72 98 10/06/22 16:20 67 125/86 99 10/06/22 16:08 95 10/06/22 15:57 67 18 137/77 99 10/06/22 13:05 98.0 F 68 20 117/72 97 Results CBC & Chem 7: 10/06/22 14:30 10/06/22 14:30 Labs: Abnormal Lab Results - Last 24 Hours (Table) 10/06/22 10/06/22 10/06/22 Range/Units 09:00 14:30 14:30 WBC 12.9 H (3.8-10.6) k/uL RBC 3.26 L (3.80-5.40) m/uL Hgb 10.7 L (11.4-16.0) gm/dL Hct 31.7 L (34.0-46.0) % Lymphocytes # (Manual) 10.58 H (1.0-4.8) k/uL Sodium 133 L (137-145) mmol/L BUN 18 H (7-17) mg/dL Glucose 105 H (74-99) mg/dL Plasma Lactic Acid Kunal (0.7-2.0) mmol/L AST 56 H (14-36) U/L ALT 42 H (4-34) U/L Alkaline Phosphatase 135 H (38-126) U/L HDL Cholesterol 37.90 L (40.00-60.00) mg/dL 10/06/22 Range/Units 15:33 WBC (3.8-10.6) k/uL RBC (3.80-5.40) m/uL Hgb (11.4-16.0) gm/dL Hct (34.0-46.0) % Lymphocytes # (Manual) (1.0-4.8) k/uL Sodium (137-145) mmol/L BUN (7-17) mg/dL Glucose (74-99) mg/dL Plasma Lactic Acid Kunal 0.6 L (0.7-2.0) mmol/L AST (14-36) U/L ALT (4-34) U/L Alkaline Phosphatase (38-126) U/L HDL Cholesterol (40.00-60.00) mg/dL
--- NOTE | 2022-10-07 18:30 | CA ---
Transthoracic Echo Report Name: Meka Turner Age: 72 Gender: F : 1950 Exam Date: 10/07/2022 14:28 Exam Location: [facility] Ht (in): 66 Wt (lb): 172 Ordering Physician: Verónica Paz Attending/Referring Phys: [id number], [employer] Tester Camden Wong Procedure CPT: Indications: LVF Cardiac Hx: Technical Quality: Fair Contrast 1: Total Dose (mL): Contrast 2: Total Dose (mL): MEASUREMENTS (Male / Female) Normal Values 2D ECHO LV Diastolic Diameter PLAX 4.9 cm 4.2 - 5.9 / 3.9 - 5.3 cm LV Systolic Diameter PLAX 3.2 cm IVS Diastolic Thickness 1.2 cm 0.6 - 1.0 / 0.6 - 0.9 cm LVPW Diastolic Thickness 1.1 cm 0.6 - 1.0 / 0.6 - 0.9 cm LV Relative Wall Thickness 0.5 RV Internal Dim ED PLAX 3.2 cm LVOT Diameter 2.0 cm Aortic Root Diameter 2.9 cm LA Systolic Diameter LX 2.5 cm 3.0 - 4.0 / 2.7 - 3.8 cm LV Diastolic Volume MOD BP 43.4 cm??? 67 - 155 / 56 - 104 cm??? LV Systolic Volume MOD BP 11.1 cm??? 22 - 58 / 19 - 49 cm??? LV Ejection Fraction MOD BP 74.4 % >= 55 % LV Diastolic Volume MOD 4C 43.1 cm??? LV Systolic Volume MOD 4C 9.2 cm??? LV Ejection Fraction MOD 4C 78.6 % LV Diastolic Length 4C 6.6 cm LV Systolic Length 4C 5.2 cm LV Diastolic Volume MOD 2C 42.3 cm??? LV Systolic Volume MOD 2C 13.1 cm??? LV Ejection Fraction MOD 2C 69.1 % LV Diastolic Length 2C 6.8 cm LV Systolic Length 2C 5.4 cm LA Volume 66.9 cm??? 18 - 58 / 22 - 52 cm??? Ascending Aorta Diameter 3.0 cm DOPPLER AV Peak Velocity 210.4 cm/s AV Peak Gradient 17.7 mmHg AI Peak Velocity 373.2 cm/s AI Peak Gradient 55.7 mmHg AI Pressure Half Time 592.5 ms LVOT Peak Velocity 130.5 cm/s LVOT Peak Gradient 6.8 mmHg LVOT Velocity Time Integral 29.4 cm LVOT Stroke Volume 96.0 cm??? LVOT Stroke Volume Index 51.2 ml/m??? AV Area Cont Eq pk 2.0 cm??? MV Peak Velocity 87.5 cm/s MV Peak Gradient 3.1 mmHg MV Mean Velocity 42.3 cm/s MV Mean Gradient 0.9 mmHg MV Velocity Time Integral 31.2 cm Mitral E Point Velocity 92.8 cm/s Mitral A Point Velocity 93.4 cm/s Mitral E to A Ratio 1.0 MV Deceleration Time 214.1 ms TR Peak Velocity 215.6 cm/s TR Peak Gradient 18.6 mmHg Right Ventricular Systolic Press 23.8 mmHg FINDINGS Left Ventricle Left ventricular ejection fraction is estimated at 55-60 %. Right Ventricle Normal right ventricular size. Right Atrium Normal right atrial size. Left Atrium Normal left atrial size. LA Volume Index= 36ml/m2 Mitral Valve Structurally normal mitral valve. No MR. Aortic Valve Mild AV Calc/Sclerosis. Mild to Mod AI. Tricuspid Valve Structurally normal tricuspid valve. Mild TR. RVSP= 19mmhg Pulmonic Valve Pulmonic valve not well visualized. No PI. Pericardium Normal pericardium. Aorta Normal size aortic root and proximal ascending aorta. CONCLUSIONS Normal LV systolic function Aortic sclerosis with mild aortic stenosis and [id number] aortic insufficiency Previewed by: Dr. Tony Lake MD (Electronically Signed) Final Date: 07 October 2022 18:29
--- NOTE | 2022-10-08 02:46 | P.CNNES ---
History of Present Illness Consult date: 10/07/22 Requesting physician: Bladimir Bedolla Reason for Consult: TIA History of Present Illness: Patient is a 72-year-old right-handed female with no significant past medical history came to the hospital yesterday at 12:44 PM for an episode of altered mental status and loss of memory. Patient states that she golfs every Monday . She went with one of her play partner to golf on Monday, one day prior to arrival. When she woke up that morning, she felt slightly spacey but was otherwise okay. She was able to perform a full game, with 9 holes. After the game she had her lunch, and then went home and took a nap. She went back [place] [employer] at 4:45 PM with her another play partner. Patient remembers going to play golf, but then she does not remember what happened there. She does not remember driving the cart, or playing. She left after 4-1/2 holes, [place] did not know the right club to use. She has been golfing for last 30 years therefore it was very unusual. She does not remember driving back home. There was no report of drooling, facial droop, slurred speech, balance issue or any headache. She was however feeling more tired and dizzy, lightheadedness but no vertigo. When she got home, she went to sleep without changing and slept until the next morning which is yesterday. When she woke up she was feeling slightly more tired than usual. She called her primary care physician's office, and spoke to the customer service receptionist, who recommended her to go to the ER. Vital signs on arrival blood pressure 117/72, pulse rate [address] head revealed age indeterminate lacunar injuries involving the left frontal lobe farris radiata and basal ganglia. No acute hemorrhage. Nonspecific but mental changes likely related to chronic small vessel ischemic disease. On my review, there is probable chronic abnormal signal in the left subcortical parietal region as well as left anterior limb of internal capsule, just lateral to the caudate. The visualized paranasal sinuses, and external auditory canals are clear. EKG shows normal sinus rhythm. Chest x-ray with patchy right upper lobe airspace opacities concerning for pneumonia. CTA of the chest revealed no evidence of pulmonary embolism. Patchy groundglass opacities within the right upper lobe suspicious for atypical pneumonia. Likely reactive mediastinal and right hilar lymphadenopathy secondary to #2. Home medications include levothyroxine and lisinopril 10 mg. patient does not take any antiplatelet medication at home. Patient denies diabetes or hypertension. Denies hyperlipidemia. She has never smoked. She drinks a glass of wine very occasionally. Patient and her mentions that for the last 6 months, patient has been having some problems with word finding. She sometimes cannot remember certain words. One time she could not remember her best friend's name. This was not particularly worse in the last few days. Patient says that she had history of TIA about 12-15 years ago. Review of Systems Constitutional: Reports weight loss, Denies chills, Denies fever Eyes: denies blurred vision, denies diplopia, denies pain Ears: bilateral: decreased hearing (Uses hearing aids), deny: ear discharge Ears, nose, mouth and throat: Denies headache, Denies sore throat Cardiovascular: Denies chest pain, Denies shortness of breath Respiratory: Denies cough, Denies excessive sputum Gastrointestinal: Denies abdominal pain, Denies diarrhea, Denies nausea, Denies vomiting Genitourinary: Denies dysuria, Denies hematuria Musculoskeletal: Reports low back pain, Denies myalgias, Denies neck pain Integumentary: Denies pruritus, Denies rash Neurological: Reports as per HPI Psychiatric: Denies anxiety, Denies depression Endocrine: Reports fatigue, Reports weight change Hematologic/Lymphatic: Denies easy bleeding, Denies easy bruising Past Medical History Past Medical History: Cancer, CVA/TIA, Eye Disorder, Thyroid Disorder Additional Past Medical History / Comment(s): TIA yrs. ago without further problems.,. B-cell lymphoma History of Any Multi-Drug Resistant Organisms: None Reported Additional Past Surgical History / Comment(s): Infected milk duct yrs. ago. COLONOSCOPY X 3. CATARACT SX ron EYE. Lymph node removed in neck Past Anesthesia/Blood Transfusion Reactions: No Reported Reaction Past Psychological History: No Psychological Hx Reported Smoking Status: Never smoker Past Alcohol Use History: Occasional Past Drug Use History: None Reported - Past Family History Sister(s) Family Medical History: Cancer Mother Family Medical History: Cancer Additional Family Medical History / Comment(s): Breast Brother(s) Family Medical History: Cancer Additional Family Medical History / Comment(s): TWO BROTHERS WITH CANCER- Pancreatic and BLADDER Medications and Allergies Home Medications Medication Instructions Recorded Confirmed Type Levothyroxine Sodium [Synthroid] 100 mcg PO DAILY 02/10/15 10/06/22 History lisinopriL [Zestril] 10 mg PO DAILY 10/06/22 10/06/22 History Allergies Allergy/AdvReac Type Severity Reaction Status Date / Time latex Allergy Anaphylaxis Verified 10/06/22 13:53 P-phenylenediamine Allergy Swelling Uncoded 10/06/22 13:12 Physical Examination - Vital Signs Vital Signs: Vital Signs Temp Pulse Resp BP Pulse Ox 10/07/22 08:38 60 18 125/74 98 10/07/22 06:17 60 16 103/66 97 10/07/22 04:00 98 F 64 16 112/76 98 10/07/22 03:00 62 16 97 10/07/22 00:00 97.9 F 61 15 118/70 97 10/06/22 21:09 96 10/06/22 18:07 70 16 115/72 98 10/06/22 16:20 67 125/86 99 10/06/22 16:08 95 10/06/22 15:57 67 18 137/77 99 10/06/22 13:05 98.0 F 68 20 117/72 97 Patient is an elderly female, very pleasant in no acute distress. Patient is alert awake oriented to time place and person. Speech and language functions are normal. Patient can name and repeat very well. No aphasia or dysarthria. Attention, concentration and fund of knowledge is adequate. No paraphasic errors noted. On cranial nerve examination, pupils are equal, round and reacting to light, visual [place] are full on confrontation, with no neglect on double simultaneous stimulation. Extraocular muscles are intact with no nystagmus. Face is symmetric, tongue protrudes to the midline. Palatal elevation and sensation normal, hearing and shoulder shrug normal, facial sensation normal. On muscle strength testing, there is no pronator drift and the strength is nor mal in arms and legs distally and proximally. Deep tendon reflexes are symmetric but hypoactive and plantars downgoing bilaterally. Sensory to touch is equal with no neglect on double simultaneous stimulation. Cerebellar function showed no ataxia for oqrwha-[id number] testing. No dysdiadochokinesia. No ataxia for naqr-[id number] testing on either side. Tone and bulk of muscles normal. Gait normal. On general examination, there is no carotid bruit or murmur, S1-S2 audible. Chest is clear on consultation. Abdomen is soft nontender. No organomegaly, bowel sounds present. Peripheral pulses are present. No edema. Results - Laboratory Findings CBC and BMP: 10/06/22 14:30 10/06/22 14:30 Abnormal Lab Findings: Abnormal Labs 10/06/22 10/06/22 10/06/22 09:00 14:30 14:30 WBC 12.9 H RBC 3.26 L Hgb 10.7 L Hct 31.7 L Lymphocytes # (Manual) 10.58 H Sodium 133 L BUN 18 H Glucose 105 H Plasma Lactic Acid Kunal AST 56 H ALT 42 H Alkaline Phosphatase 135 H HDL Cholesterol 37.90 L 10/06/22 15:33 WBC RBC Hgb Hct Lymphocytes # (Manual) Sodium BUN Glucose Plasma Lactic Acid Kunal 0.6 L AST ALT Alkaline Phosphatase HDL Cholesterol Assessment and Plan Assessment: * Episode of loss of memory, possible transient global amnesia, rule out TIA. Rule out encephalopathy due to pneumonia. * Acute pneumonia. Patient largely asymptomatic. * History of TIA 12-15 years ago. No residual deficits. CT head showed remote area of ischemia involving the left frontal lobe farris radiata extending to basal ganglia, likely due to that incident. Plan: * Agree with checking MRI of the brain to evaluate for subacute CVA. * Agree with starting aspirin 325 mg daily. Patient was not on any antiplatelet medication at home. * Carotid Doppler revealed less than 50% stenosis of bilateral carotid bifurcation. Antegrade flow in both vertebral arteries. * 2-D echo revealed normal left ventricular systolic function with EF 55-60%. Aortic sclerosis with mild aortic stenosis and mild to moderate aortic insufficiency. Left atrial size is normal. IM to address abnormal aortic valve, if any further testing required. * Check EEG rule out epileptiform activity. * Fasting a.m. lipid panel, hemoglobin A1c, B12, folate. * Telemetric monitoring. * Blood pressure is well controlled. * DVT prophylaxis: Patient on Lovenox 40 mg subcu daily * Dr. Bronson Galeas to cover neurology service over the weekend. Thank you for the consult. Time with Patient: Greater than 30
[2022-10-08] MEDS: PANTOPRAZOLE 40 MG TABLET PO SCH (06:10)
[2022-10-08] MEDS: LEVOTHYROXINE 100 MCG TAB PO SCH (06:10)
[2022-10-08] MEDS: SODIUM CHLORIDE 0.9% 1,000 ML IV SCH ×2 (08:05→18:52)
[2022-10-08] MEDS: ATORVASTATIN 40 MG TAB PO SCH (10:06)
[2022-10-08] MEDS: ASPIRIN 325 MG TAB PO SCH (10:06)
[2022-10-08] MEDS: lisinopriL 10 MG TAB PO SCH (10:06)
[2022-10-08] MEDS: ENOXAPARIN 40 MG/0.4 ML SYRINGE SQ SCH (10:06)
--- NOTE | 2022-10-08 10:11 | MR ---
EXAMINATION TYPE: MR brain wo/w con DATE OF EXAM: 10/08/2022 COMPARISON: Brain CT 10/06/2022 HISTORY: 72-year-old female TIA, episodes of confusion TECHNIQUE: Multiplanar, multisequence images of the brain and brainstem were acquired before and aft er administration of 8 mL IV Gadavist. Diffusion weighted imaging is performed. FINDINGS: Bright signal on DWI within the anterior left basal ganglia shows no corresponding hypointensity on A DC map. Findings compatible with T2 shine through. No evidence for acute infarction, hemorrhage, mass, mass effect, midline shift, herniation, effacemen t of basal cisterns, or extra-axial fluid collection. The ventricles and sulci are age-appropriate. Major intracranial flow voids are intact. T2/FLAIR weighted sequences show moderate to severe scattered right signal change in both cerebral he mispheres and also within the bilateral paramedian ford Midline structures demonstrate normal morphology. The craniocervical junction is normal. Post contrast images demonstrate no evidence of pathologic enhancement. Dural venous sinuses are pat ent. Mild mucosal thickening and air cells. Slight leftward nasal septal deviation. Some fluid within the inferior left mastoid air cells. Globes are intact. IMPRESSION: 1. No acute intracranial abnormality seen. No enhancing lesions. Some bright signal on DWI within the anterior left basal ganglia corresponds to T2 shine through rather than acute/subacute infarct. 2. There is background severe scattered burden of chronic small vessel ischemic disease. 3. Mild chronic ethmoid sinus disease. Some trapped fluid in the left mastoid air cells. Correlate fo r any mastoid pain to exclude mastoiditis.
--- NOTE | 2022-10-08 11:40 | P.PN ---
Subjective Progress Note Date: 10/08/22 I am seeing the patient for the first time during this hospital visit. Please refer to Dr. Sanches's notes for further details. Patient is accompanied with her and it seems she was golfing recently and was confused and did not remember driving home. Per she has some memory issues last few weeks that were subtle. Per patient and they feels she is about 95% back to baseline. Objective - Vital Signs Vital signs: Vital Signs Temp 98.2 F 10/08/22 07:00 Pulse 58 L 10/08/22 08:00 Resp 16 10/08/22 08:00 BP 113/62 10/08/22 07:00 Pulse Ox 100 10/08/22 07:00 FiO2 Intake & Output 10/07/22 10/08/22 10/08/22 18:59 06:59 18:59 Intake Total 118 Balance 118 Weight 78.018 kg Intake: Oral 118 Other: Voiding Method Toilet Toilet # Voids 2 1 - Exam Neuro: Alert, oriented X3. Following commands. No aphasia. No facial weakness. No dysarthria. Tongue is midline and moves side to side. Motor: Strength is 5/5. - Labs CBC & Chem 7: 10/06/22 14:30 10/06/22 14:30 Assessment and Plan Assessment: * Episode of loss of memory, possible transient global amnesia, rule out TIA vs seizure. Rule out encephalopathy due to pneumonia. * Acute pneumonia. Patient largely asymptomatic. * History of TIA 12-15 years ago. No residual deficits. CT head showed remote area of ischemia involving the left frontal lobe farris radiata extending to basal ganglia, likely due to that incident. Plan: * MRI of the brain: As reported as no acute intracranial abnormality seen. No enhancing lesion at. Some bright signal on DWI within the anterior left basal ganglia corresponds to T2 shine through rather than acute/subacute infarct. There is background severe scattered burden of chronic small vessel ischemic disease. Mild chronic ethmoid sinus disease. Some mild trapped fluid in the left mastoid air cell. Correlate for any mastoid pain to exclude mastoiditis. I personally reviewed the MRI and angry with the report. * Currently is on aspirin 325 mg daily. Patient was not on any antiplatelet medication at home. * Carotid Doppler revealed less than 50% stenosis of bilateral carotid bifurcation. Antegrade flow in both vertebral arteries. * 2-D echo revealed normal left ventricular systolic function with EF 55-60%. Aortic sclerosis with mild aortic stenosis and mild to moderate aortic insufficiency. Left atrial size is normal. IM to address abnormal aortic valve, if any further testing required. * Dr. Sanches ordered EEG rule out epileptiform activity. But tech available and will be done this Monday. Per patient and her they were notified by Dr. Sanches that once MRI is completed that EEG can be completed as outpatient (I called Dr. Sanches and he did acknowledge that he informed them of that). * Fasting a.m. lipid panel: Triglyceride 78, cholesterol 178, LDL is 124, HDL is 37. * hemoglobin A1c, B12, folate: PENDING. * Telemetric monitoring. * Blood pressure is well controlled. * DVT prophylaxis: Patient on Lovenox 40 mg subcu daily * Recommend the patient to follow-up with neurologist as outpatient within 1-2 weeks regarding further investigation of her recent memory loss and recommend detailed memory testing. The plan is discussed with patient and her who is at bedside. Plan is discussed with her nurse. Time with Patient: Less than 30
--- NOTE | 2022-10-08 12:33 | P.PN ---
Subjective Progress Note Date: 10/08/22 This is a very pleasant 72-year-old female patient who is a lifelong nonsmoker with history of hypothyroidism, hypertension, and non-Hodgkin's lymphoma. Her most recent computed tomography scan of the chest abdomen and pelvis from 07/08/2022 revealed unchanged mild Adenopathy within the chest abdomen pelvis. No progressive adenopathy noted. This is compared to June 2021. She presented here to the emergency room yesterday after developing altered mental status while out golfing yesterday. She was doing things that were abnormal for her and her friend who was with her noted some changes. She was having memory loss and some confusion. Computed tomography scan of the brain revealed age indeter minant lactic, and her injuries involving the left frontal lobe were not radiata and basal ganglia. No acute hemorrhage. Nonspecific white matter changes likely related to chronic small vessel ischemic disease. Carotid Doppler revealed less than 50% stenosis bilaterally. Chest x-ray revealed some right upper lobe airspace opacities. CT angiogram revealed no evidence of pulmonary embolism. There is patchy groundglass opacities in the right upper lobe suspicious for atypical pneumonia. Likely reactive mediastinal and right hilar lymphadenopathy. White count 12.9. Hemoglobin 10.7. Platelets 314. Sodium 133. Potassium 4.4. Bicarb 24. BUN 18. Creatinine 0.61. Lactic acid 0.6. AST 56. ALT 42. Influenza screen negative. RSV screen negative. COVID-19 screen negative. Pro-calcitonin pending. She is seen today in consultation in the emergency department. She is currently still sitting up on the stretcher. Awake and alert in no acute distress. She denies any worsening shortness of breath, cough or congestion. No fever or chills. No pulmonary complaints. Maintaining O2 saturations in the mid to upper 90s on room air. She's been afebrile. Hemodynamically stable. The patient is seen today 10/08/2022 in follow-up on the regular medical floor. She is currently sitting up in bed. Awake and alert in no acute distress. Continues to deny any significant pulmonary complaints. No cough or congestion. No hemoptysis. Maintaining O2 saturations up to 100% on room air. Afebrile. MRI of the brain revealed no acute intracranial abnormalities. Echocardiogram revealed preserved left ventricular systolic function. Mild aortic stenosis with [id number] aortic insufficiency. She is continued on Lovenox for DVT prophylaxis. We'll consult on 0.09. Empiric diuretics in the form of ceftriaxone. No new labs today. Objective - Vital Signs Vital signs: Vital Signs Temp 98.2 F 10/08/22 07:00 Pulse 58 L 10/08/22 08:00 Resp 16 10/08/22 08:00 BP 113/62 10/08/22 07:00 Pulse Ox 100 10/08/22 07:00 FiO2 Intake & Output 10/07/22 10/08/22 10/08/22 18:59 06:59 18:59 Intake Total 118 Balance 118 Weight 78.018 kg Intake: Oral 118 Other: Voiding Method Toilet Toilet # Voids 2 1 - Exam GENERAL EXAM: Alert, oriented 3, 72-year-old female, sitting up in bed, on room air, comfortable in no apparent distress. HEAD: Normocephalic. EYES: Normal reaction of pupils, equal size. NOSE: Clear with pink turbinates. THROAT: No erythema or exudates. NECK: No masses, no JVD. CHEST: No chest wall deformity. LUNGS: Equal air entry with no crackles, wheeze, rhonchi or dullness. CVS: S1 and S2 normal with no audible murmur, regular rhythm. ABDOMEN: No hepatosplenomegaly, normal bowel sounds, no guarding or rigidity. SPINE: No scoliosis or deformity SKIN: No rashes CENTRAL NERVOUS SYSTEM: No focal deficits, tone is normal in all 4 extremities. EXTREMITIES: There is no peripheral edema. No clubbing, no cyanosis. Peripheral pulses are intact. - Labs CBC & Chem 7: 10/06/22 14:30 10/06/22 14:30 Assessment and Plan Assessment: Altered mental status of unclear etiology. Could be related to possible early pneumonia in the right upper lobe with patchy groundglass opacities. However no pulmonary complaints. RSV negative. COVID-19 negative. Influenza screen negative. Pro-calcitonin within normal limits. Initiated on ceftriaxone and azithromycin Previous history of TIA. Computed tomography scan of the brain revealed age- indeterminate lacunar injuries involving the left frontal lobe chronic radiata and basal ganglia. No acute hemorrhage. Carotid Dopplers revealed less than 50% stenosis bilaterally. History of non-Hodgkin's lymphoma. Recent computed tomography scan of the chest, abdomen, pelvis revealed no progression of mild adenopathy Hypothyroidism Hypertension Plan: The patient was seen and evaluated MRI of the brain, echocardiogram and medications reviewed Cleared for discharge from the pulmonary standpoint Complete Levaquin 500 mg daily for [address] findings Follow-up in the office in 1-2 weeks' I have personally seen and examined the patient, performed the documentation and the assessment and plan as written. Number of minutes spent on the visit: 10.
[2022-10-08] MEDS: AZITHROMYCIN 500 MG TAB PO SCH (12:54)
[2022-10-08] MEDS: LEVOFLOXACIN 500 MG TAB PO SCH (14:08)
[2022-10-09 02:38] VITALS: RESP 16
[2022-10-09] MEDS: SODIUM CHLORIDE 0.9% 1,000 ML IV SCH (04:45)
[2022-10-09] MEDS: LEVOTHYROXINE 100 MCG TAB PO SCH (05:45)
[2022-10-09] MEDS: PANTOPRAZOLE 40 MG TABLET PO SCH (05:45)
[2022-10-09] MEDS: ATORVASTATIN 40 MG TAB PO SCH (08:25)
[2022-10-09] MEDS: lisinopriL 10 MG TAB PO SCH (08:25)
[2022-10-09] MEDS: ASPIRIN 325 MG TAB PO SCH (08:25)
[2022-10-09] MEDS: ENOXAPARIN 40 MG/0.4 ML SYRINGE SQ SCH (08:25)
[2022-10-09 08:43] LABS: HCT 33.3 % (34.0-46.0); HGB 10.8 gm/dL (11.4-16.0); MCH 32.4 pg (25.0-35.0); MCHC 32.5 g/dL (31.0-37.0); MCV 99.6 fL (80.0-100.0); Mean Platelet Volume 8.3; Platelet Count 335 k/uL (150-450); RBC 3.35 m/uL (3.80-5.40); RDW 12.5 % (11.5-15.5); WBC 8.2 k/uL (3.8-10.6)
[2022-10-09 08:55] LABS: ALT 35 U/L (4-34); AST 26 U/L (14-36); African American GFR (CKD) >90 (>60 ml/min/1.73 sqM); Albumin 3.2 g/dL (3.5-5.0); Albumin/Globulin Ratio 1.1; Alkaline Phosphatase 108 U/L (38-126); Anion Gap 5 mmol/L; Blood Urea Nitrogen 9 mg/dL (7-17); Calcium 8.5 mg/dL (8.4-10.2); Carbon Dioxide 29 mmol/L (22-30); Chloride 106 mmol/L (98-107); Globulin 2.8 g/dL; Glucose 85 mg/dL (74-99); Non-African American GFR(CKD) 89 (>60 ml/min/1.73 sqM); Potassium 4.7 mmol/L (3.5-5.1); Sodium 140 mmol/L (137-145); Total Bilirubin 0.3 mg/dL (0.2-1.3)
[2022-10-09 09:01] LABS: Carcinoembryonic Antigen <2.0 ng/mL (0.0-4.9)
--- NOTE | 2022-10-09 09:33 | P.CRDCN ---
History of Present Illness History of present illness: HISTORY OF PRESENTING ILLNESS Patient is pleasant 72-year-old female with history of hypertension, hypothyroidism, non-Hodgkin's lymphoma, aortic insufficiency, hyperlipidemia, carotid artery stenosis, osteopenia. Patient presented to [facility] 10/06 secondary to increased confusion. She felt a little bit lightheaded and exhausted and had gone golfing and was attempting to hit the ball however just not feeling right. She did not have any focal weakness. She denies any recent fevers or chills. She was seen in neurology with brain MRI showing old small vessel infarcts with no acute/subacute process. Neurology recommending outpatient EEG. Currently she feels better however does have occasional tangential thoughts. Echocardiogram was performed which did show preserved EF however mild to moderate aortic insufficiency. Blood cultures have been negative to date. EKG shows normal sinus rhythm, normal axis, no significant ST or T-wave abnormalities. No tobacco, rare alcohol, family history of father with ID. REVIEW OF SYSTEMS At the time of my exam: CONSTITUTIONAL: Denies fever or chills. CARDIOVASCULAR: Denies chest pain, +chronic shortness of breath, no orthopnea, PND or palpitations. RESPIRATORY: Denies cough. GASTROINTESTINAL: Denies abdominal pain, diarrhea, constipation, nausea or vomiting. MUSCULOSKELETAL: Denies myalgias. NEUROLOGIC: Denies numbness, tingling or weakness. ENDOCRINE: Denies fatigue, weight change, polydipsia or polyurina. GENITOURINARY: Denies burning, hematuria or urgency with micturation. HEMATOLOGIC: Denies history of anemia or bleeding. PHYSICAL EXAMINATION Vital signs reviewed. CONSTITUTIONAL: No apparent distress. HEENT: Head is normocephalic. Pupils are equal, round. Sclerae anicteric. Mucous membranes of the mouth are moist. No JVD. No carotid bruit. CHEST EXAMINATION: Lungs are clear to auscultation. No chest wall tenderness is noted on palpation or with deep breathing. HEART EXAMINATION: Regular rate and rhythm. S1, S2 heard. No murmurs, gallops or rub. ABDOMEN: Soft, nontender. Positive bowel sounds. EXTREMITIES: 2+ peripheral pulses, no lower extremity edema and no calf tenderness. NEUROLOGIC EXAMINATION: Patient is awake, alert and oriented x3. ASSESSMENT Aortic insufficiency, mild to moderate Altered mental status, possible TIA Abnormal MRI more chronic findings History of non-Hodgkin's lymphoma Hypertension Hyperlipidemia Family history of CAD Carotid artery stenosis, mild less than 50% stenosis bilaterally most recent carotid ultrasound 10/06/2022 PLAN Name presentation appears related to altered mental status and neurology workup in progress with brain MRI showing more chronic findings and possible TIA. Patient to undergo EEG likely is now outpatient. Some increased aortic insuffic iency and discussed RACHELLE to further assess aortic insufficiency and possible cardiac source of emboli. This however can be performed as an outpatient. Past Medical History Past Medical History: Cancer, CVA/TIA, Eye Disorder, Thyroid Disorder Additional Past Medical History / Comment(s): TIA yrs. ago without further problems.,. B-cell lymphoma History of Any Multi-Drug Resistant Organisms: None Reported Additional Past Surgical History / Comment(s): Infected milk duct yrs. ago. COLONOSCOPY X 3. CATARACT SX ron EYE. Lymph node removed in neck Past Anesthesia/Blood Transfusion Reactions: No Reported Reaction Past Psychological History: No Psychological Hx Reported Smoking Status: Never smoker Past Alcohol Use History: Occasional Past Drug Use History: None Reported - Past Family History Sister(s) Family Medical History: Cancer Mother Family Medical History: Cancer Additional Family Medical History / Comment(s): Breast Brother(s) Family Medical History: Cancer Additional Family Medical History / Comment(s): TWO BROTHERS WITH CANCER- Pancreatic and BLADDER Medications and Allergies Home Medications Medication Instructions Recorded Confirmed Type Levothyroxine Sodium [Synthroid] 100 mcg PO DAILY 02/10/15 10/06/22 History lisinopriL [Zestril] 10 mg PO DAILY 10/06/22 10/06/22 History Allergies Allergy/AdvReac Type Severity Reaction Status Date / Time latex Allergy Anaphylaxis Verified 10/06/22 13:53 P-phenylenediamine Allergy Swelling Uncoded 10/06/22 13:12 Physical Exam Vitals: Vital Signs Temp Pulse Resp BP Pulse Ox 10/09/22 07:00 97.3 F L 63 16 138/74 98 10/09/22 02:00 98.4 F 70 16 136/79 98 10/08/22 20:39 17 10/08/22 19:15 97.5 F L 60 16 115/74 94 L 10/08/22 14:36 97.9 F 64 16 116/74 97 10/08/22 14:00 64 16 Intake and Output 06/02/2010/09/22 10/09/22 22:59 06:59 14:59 Other: Voiding Method Toilet # Voids 2 1 Results 10/09/22 07:27 10/09/22 07:27 Cardiac Enzymes 10/08/22 10/09/22 Range/Units 12:19 07:27 AST 26 (14-36) U/L Lactate Dehydrogenase 159 (120-246) U/L CBC 10/09/22 Range/Units 07:27 WBC 8.2 (3.8-10.6) k/uL RBC 3.35 L (3.80-5.40) m/uL Hgb 10.8 L (11.4-16.0) gm/dL Hct 33.3 L (34.0-46.0) % Plt Count 335 (150-450) k/uL Comprehensive Metabolic Panel 10/09/22 Range/Units 07:27 Sodium 140 (137-145) mmol/L Potassium 4.7 (3.5-5.1) mmol/L Chloride 106 (98-107) mmol/L Carbon Dioxide 29 (22-30) mmol/L BUN 9 (7-17) mg/dL Creatinine 0.63 (0.52-1.04) mg/dL Glucose 85 (74-99) mg/dL Calcium 8.5 (8.4-10.2) mg/dL AST 26 (14-36) U/L ALT 35 H (4-34) U/L Alkaline Phosphatase 108 (38-126) U/L Total Protein 6.0 L (6.3-8.2) g/dL Albumin 3.2 L (3.5-5.0) g/dL Current Medications Generic Name Dose Route Start Last Admin Trade Name Freq PRN Reason Stop Dose Admin Aspirin 325 mg 10/07/22 09:00 10/09/22 08:25 Aspirin 325 Mg Tab PO 325 mg DAILY ERIC Administration Atorvastatin Calcium 40 mg 10/06/22 15:30 10/09/22 08:25 Atorvastatin 40 Mg Tab PO 40 mg DAILY ERIC Administration Enoxaparin Sodium 40 mg 10/08/22 09:00 10/09/22 08:25 Enoxaparin 40 Mg/0.4 Ml Syringe SQ 40 mg DAILY ERIC Administration Sodium Chloride 1,000 mls @ 100 mls/hr 10/06/22 15:30 10/09/22 04:45 Saline 0.9% IV Not Given .Q10H ERIC Levofloxacin 500 mg 10/08/22 13:00 10/08/22 14:08 Levofloxacin 500 Mg Tab PO 10/14/22 13:01 500 mg Q24H ERIC Administration Protocol Levothyroxine Sodium 100 mcg 10/07/22 06:30 10/09/22 05:45 Levothyroxine 100 Mcg Tab PO 100 mcg DAILY@0630 ERIC Administration Lisinopril 10 mg 10/07/22 09:00 10/09/22 08:25 Lisinopril 10 Mg Tab PO 10 mg DAILY ERIC Administration Miscellaneous Information 1 each 10/06/22 15:20 Pneumonia Protocol Utilized 1 Each Misc PO ONCE PRN Per Protocol Pantoprazole Sodium 40 mg 10/08/22 07:30 10/09/22 05:45 Pantoprazole 40 Mg Tablet PO 40 mg [id number] ERIC Administration Intake and Output 10/08/22 10/09/22 10/09/22 22:59 06:59 14:59 Other: Voiding Method Toilet # Voids 2 1 10/09/22 07:27 10/09/22 07:27
[2022-10-09 09:39] LABS: Nucleated Red Blood Cells 0 /100 WBC (0-0)
[2022-10-09 09:42] LABS: Eosinophils # (M) 0.08 k/uL (0-0.7); Monocytes # (M) 0.25 k/uL (0-1.0); Neutrophils # (M) 2.05 k/uL (1.3-7.7); Neutrophils % (M) 25 %; RBC Morphology Normal; Total Cells Counted 200
--- NOTE | 2022-10-09 10:49 | P.PN ---
Subjective Progress Note Date: 10/09/22 This is a very pleasant 72-year-old female patient who is a lifelong nonsmoker with history of hypothyroidism, hypertension, and non-Hodgkin's lymphoma. Her most recent computed tomography scan of the chest abdomen and pelvis from 07/08/2022 revealed unchanged mild Adenopathy within the chest abdomen pelvis. No progressive adenopathy noted. This is compared to June 2021. She presented here to the emergency room yesterday after developing altered mental status while out golfing yesterday. She was doing things that were abnormal for her and her friend who was with her noted some changes. She was having memory loss and some confusion. Computed tomography scan of the brain revealed age indeter minant lactic, and her injuries involving the left frontal lobe were not radiata and basal ganglia. No acute hemorrhage. Nonspecific white matter changes likely related to chronic small vessel ischemic disease. Carotid Doppler revealed less than 50% stenosis bilaterally. Chest x-ray revealed some right upper lobe airspace opacities. CT angiogram revealed no evidence of pulmonary embolism. There is patchy groundglass opacities in the right upper lobe suspicious for atypical pneumonia. Likely reactive mediastinal and right hilar lymphadenopathy. White count 12.9. Hemoglobin 10.7. Platelets 314. Sodium 133. Potassium 4.4. Bicarb 24. BUN 18. Creatinine 0.61. Lactic acid 0.6. AST 56. ALT 42. Influenza screen negative. RSV screen negative. COVID-19 screen negative. Pro-calcitonin pending. She is seen today in consultation in the emergency department. She is currently still sitting up on the stretcher. Awake and alert in no acute distress. She denies any worsening shortness of breath, cough or congestion. No fever or chills. No pulmonary complaints. Maintaining O2 saturations in the mid to upper 90s on room air. She's been afebrile. Hemodynamically stable. The patient is seen today 10/08/2022 in follow-up on the regular medical floor. She is currently sitting up in bed. Awake and alert in no acute distress. Continues to deny any significant pulmonary complaints. No cough or congestion. No hemoptysis. Maintaining O2 saturations up to 100% on room air. Afebrile. MRI of the brain revealed no acute intracranial abnormalities. Echocardiogram revealed preserved left ventricular systolic function. Mild aortic stenosis with [id number] aortic insufficiency. She is continued on Lovenox for DVT prophylaxis. We'll consult on 0.09. Empiric diuretics in the form of ceftriaxone. No new labs today. The patient is seen today 10/09/2022 in follow-up on the regular medical floor. She is currently awake and alert. Oriented 3. Denies any neurologic symptoms currently. Feeling back to her baseline. No shortness of breath, cough or hanna estion. Blood cultures revealed no growth. Sputum culture revealed no growth. White count 8.2. Hemoglobin 10.8. Sodium 140. Potassium 4.7. Bicarb 29. BUN 9. Creatinine 0.63. She is continued on Levaquin. Objective - Vital Signs Vital signs: Vital Signs Temp 97.3 F L 10/09/22 07:00 Pulse 63 10/09/22 08:00 Resp 16 10/09/22 08:00 BP 138/74 10/09/22 07:00 Pulse Ox 98 10/09/22 07:00 FiO2 Intake & Output 10/08/22 10/09/22 10/09/22 18:59 06:59 18:59 Intake Total 236 118 Balance 236 118 Intake: Oral 236 118 Other: Voiding Method Toilet Toilet Toilet # Voids 4 1 - Exam GENERAL EXAM: Alert, oriented, 72-year-old female, on room air, comfortable in no apparent distress. HEAD: Normocephalic. EYES: Normal reaction of pupils, equal size. NOSE: Clear with pink turbinates. THROAT: No erythema or exudates. NECK: No masses, no JVD. CHEST: No chest wall deformity. LUNGS: Equal air entry with no crackles, wheeze, rhonchi or dullness. CVS: S1 and S2 normal with no audible murmur, regular rhythm. ABDOMEN: No hepatosplenomegaly, normal bowel sounds, no guarding or rigidity. SPINE: No scoliosis or deformity SKIN: No rashes CENTRAL NERVOUS SYSTEM: No focal deficits, tone is normal in all 4 extremities. EXTREMITIES: There is no peripheral edema. No clubbing, no cyanosis. Peripheral pulses are intact. - Labs CBC & Chem 7: 10/09/22 07:27 10/09/22 07:27 Labs: Abnormal Lab Results - Last 24 Hours (Table) 10/08/22 10/09/22 10/09/22 Range/Units 06:03 07:27 07:27 RBC 3.35 L (3.80-5.40) m/uL Hgb 10.8 L (11.4-16.0) gm/dL Hct 33.3 L (34.0-46.0) % Lymphocytes # (Manual) 5.90 H (1.0-4.8) k/uL ALT 35 H (4-34) U/L Total Protein 6.0 L (6.3-8.2) g/dL Albumin 3.2 L (3.5-5.0) g/dL Vitamin B12 2785.0 H (200.0-944.0) pg/mL Microbiology - Last 24 Hours (Table) 10/08/22 10:17 Gram Stain - Preliminary Sputum 10/06/22 15:30 Blood Culture - Preliminary Blood 10/06/22 15:15 Blood Culture - Preliminary Blood Assessment and Plan Assessment: Altered mental status of unclear etiology. Could be related to possible early pneumonia in the right upper lobe with patchy groundglass opacities. However no pulmonary complaints. RSV negative. COVID-19 negative. Influenza screen negative. Pro-calcitonin within normal limits. Currently on Levaquin Previous history of TIA. Computed tomography scan of the brain revealed age- indeterminate lacunar injuries involving the left frontal lobe chronic radiata and basal ganglia. No acute hemorrhage. Carotid Dopplers revealed less than 50% stenosis bilaterally. History of non-Hodgkin's lymphoma. Recent computed tomography scan of the chest, abdomen, pelvis revealed no progression of mild adenopathy Hypothyroidism Hypertension Plan: The patient was seen and evaluated Labs and medications reviewed Cleared for discharge from the pulmonary standpoint Levaquin 500 mg daily for [address] findings Follow-up in the office in 1-2 weeks' I have personally seen and examined the patient, performed the documentation and the assessment and plan as written. Number of minutes spent on the visit: 10.
[2022-10-09 10:56] LABS: Erythrocyte Sedimentation Rate 106 mm/hr (0-20)
[2022-10-09] MEDS: LEVOFLOXACIN 500 MG TAB PO SCH (12:04)
--- NOTE | 2022-10-09 13:17 | P.PN ---
Subjective Progress Note Date: 10/09/22 The patient is seen at bedside and feels about the same. Denies any worsening of her condition. Objective - Vital Signs Vital signs: Vital Signs Temp 97.3 F L 10/09/22 07:00 Pulse 63 10/09/22 08:00 Resp 16 10/09/22 08:00 BP 138/74 10/09/22 07:00 Pulse Ox 98 10/09/22 07:00 FiO2 Intake & Output 10/08/22 10/09/22 10/09/22 18:59 06:59 18:59 Intake Total 236 118 Balance 236 118 Intake: Oral 236 118 Other: Voiding Method Toilet Toilet Toilet # Voids 4 1 - Exam Neuro: Alert, oriented X3. Following commands. No aphasia. No facial weakness. No dysarthria. Tongue is midline and moves side to side. Motor: Strength is 5/5. - Labs CBC & Chem 7: 10/09/22 07:27 10/09/22 07:27 Labs: Abnormal Lab Results - Last 24 Hours (Table) 10/08/22 10/09/22 10/09/22 Range/Units 06:03 07:27 07:27 RBC 3.35 L (3.80-5.40) m/uL Hgb 10.8 L (11.4-16.0) gm/dL Hct 33.3 L (34.0-46.0) % Lymphocytes # (Manual) 5.90 H (1.0-4.8) k/uL ESR 106 H (0-20) mm/hr ALT 35 H (4-34) U/L Total Protein 6.0 L (6.3-8.2) g/dL Albumin 3.2 L (3.5-5.0) g/dL Vitamin B12 2785.0 H (200.0-944.0) pg/mL Microbiology - Last 24 Hours (Table) 10/06/22 15:30 Blood Culture - Preliminary Blood 10/06/22 15:15 Blood Culture - Preliminary Blood 10/08/22 10:17 Gram Stain - Preliminary Sputum Assessment and Plan Assessment: * Episode of loss of memory, possible transient global amnesia, rule out TIA vs seizure. Rule out encephalopathy due to pneumonia. 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 Patient largely asymptomatic. * Aortic insufficiency, mild to moderate * History of TIA 12-15 years ago. No residual deficits. CT head showed remote area of ischemia involving the left frontal lobe farris radiata extending to basal ganglia, likely due to that incident. Plan: * MRI of the brain: As reported as no acute intracranial abnormality seen. No enhancing lesion. Some bright signal on DWI within the anterior left basal ganglia corresponds to T2 shine through rather than acute/subacute infarct. There is background severe scattered burden of chronic small vessel ischemic disease. Mild chronic ethmoid sinus disease. Some mild trapped fluid in the left mastoid air cell. Correlate for any mastoid pain to exclude mastoiditis. I personally reviewed the MRI and agree with the report. * Currently is on aspirin 325 mg daily. Patient was not on any antiplatelet medication at home. * Carotid Doppler revealed less than 50% stenosis of bilateral carotid bifurcation. Antegrade flow in both vertebral arteries. * 2-D echo revealed normal left ventricular systolic function with EF 55-60%. Aortic sclerosis with mild aortic stenosis and mild to moderate aortic insufficiency. Left atrial size is normal. IM to address abnormal aortic valve, if any further testing required. * Dr. Sanches ordered EEG rule out epileptiform activity. But tech available and will be done this Monday. Per Dr. Sanches can be completed as outpatient if discharged. * Fasting a.m. lipid panel: Triglyceride 78, cholesterol 178, LDL is 124, HDL is 37. * hemoglobin A1c, B12, folate: PENDING. * Telemetric monitoring. * Blood pressure is well controlled. * DVT prophylaxis: Patient on Lovenox 40 mg subcu daily * Recommend the patient to follow-up with neurologist as outpatient within 1-2 weeks regarding further investigation of her recent memory loss and recommend detailed memory testing. The plan is discussed with patient and her nurse. Dr. Sanches will start neurology service tomorrow A.M. Will obtain EEG tomorrow if remains in the hospital but otherwise can be performed as outpatient if discharged. Time with Patient: Less than 30
--- NOTE | 2022-10-09 13:19 | P.PN ---
Subjective Progress Note Date: 10/08/22 HISTORY OF PRESENT ILLNESS This is a 72-year-old female with past medical history of hypertension, hypothyroidism, small B-cell non-Hodgkin's lymphoma, stress incontinence, mixed hyperlipidemia, aortic valve insufficiency, carotid artery stenosis bilaterally, osteopenia of the right hip. Patient presented to [facility] emergency center due to confusion. Patient gives history that Monday she was out golfing in the morning with friends and felt a little lightheaded and hazy feeling. She denied having any weakness and no numbness or tingling. She came back home and felt very exhausted and went to bed and slept for a number of hours. At 4 PM she got up to go golfing again with a different friend. She was in the corporate driver's seat of the car and went go driving on the green she was also using the wrong clubs and in general just seemed to be off mentally. She again did not have any weakness and did not have any numbness or tingling and no change in his age. After she golfed in the evening she went home and climbed into bed with her golfed close on and went to sleep. She states her appetite has been good. She denies having any cough or sputum production. No fever or chills. She did have travel to [place] 3 weeks ago but did not feel ill while away. She's had no vomiting no diarrhea. She feels that she is feeling better now but it appears her mental status is slightly off as when leaving the room, patient got up and grabbed her IV bag and was going to walk less out to the door. WBC 12.9, hemoglobin 10.7, platelet count 314. INR 1.0. Sodium 133, potassium 4.4, chloride 99, CO2 24, BUN 18 and creatinine 0.6. Glucose 105. Lactic acid 0.6. Calcium 8.5. Total bilirubin 0.6. AST 56, ALT 42, alkaline phosphatase 135. Total protein 6.7 and albumin 3.6. Cholesterol 78, LDL 178, HDL 124. Influenza A, influenza B, RSV and Covid 19 not detected. CAT scan of the brain reveals age indeterminate lacunar injuries involving the left frontal lobe farris radiata and basal ganglia. No acute hemorrhage. Chronic small vessel ischemic disease. EKG sinus rhythm with no acute ST changes. Chest x-ray reveals patchy right upper lobe airspace opacities concerning for pneumonia. CTA of the chest revealed no evidence of pulmonary embolism. Patchy groundglass opacities within the right upper lobe suspicious for atypical pneumonia. Likely reactive mediastinal and right hilar lymphadenopathy secondary to #2. Carotid ultrasounds revealed less than 50% stenosis of bilateral carotid bifurcation. Repeat chest x-ray reveals right upper lobe airspace opacities similar to prior. Patient was started on azithromycin and ceftriaxone. Consult in place with pulmonary medicine and neurology.. 10/08: Patient is sitting up in the chair in no apparent distress, she denies any chest pain, shortness breath, she appears to be more appropriate today, yesterday she was a bit confused, patient underwent the ultrasound of the carotid that showed 50% stenosis of bilateral carotid arteries, patient had a Chest x-ray that showed right upper lobe airspace disease, she has been on IV antibiotic in the form of Zithromax and ceftriaxone has been seen in consultation by pulmonary medicine, clinically does not have signs or symptoms of pneumonia, we'll check auto immune panel patient also was seen in consultation by neurology for possible TIA/CVA , patient underwent MRI of the brain with and without gadolinium did not show evidence of acute infarct or bleed it did show evidence of foot chronic small vessel disease, echocardiogram showed normal ejection fraction with mild aortic stenosis with moderate aortic regurgitation we will consult cardiology for further evaluation, blood cultures were obtained to rule out any positive blood culture rule out endocarditis REVIEW OF SYSTEMS Constitutional: No fever, no chills, no night sweats. No weight change. No weakness, fatigue or lethargy. Reported daytime sleepiness. HEENT: No headache. No blurred vision or double vision, no loss of vision. No loss of Hearing, no ringing in the ears, no dizziness. No nasal drainage or congestion. No epistaxis. No sore throat. Lungs: No shortness of breath, cough, no sputum production. No wheezing. Cardiovascular: No chest pain, no lower extremity edema. No palpitations. No paroxysmal nocturnal dyspnea. No orthopnea. No lightheadedness or dizziness. No syncopal episodes. Abdominal: No abdominal pain. No nausea, vomiting. No diarrhea. No constipation. No bloody or tarry stools. No loss of appetite. Genitourinary: No dysuria, increased frequency, urgency. No urinary retention. Musculoskeletal: No myalgias. No muscle weakness, no gait dysfunction, no frequent falls. No back pain. No neck pain. Integumentary: No wounds, no lesions. No rash or pruritus. No unusual bruising. No change in hair or nails. Neurologic: No aphasia. No facial droop. Mild change in mentation. No head injury. No headache. No paralysis. No paresthesia. Psychiatric: No depression. No anxiety. No mood swings. Endocrine: No abnormal blood sugars. No weight change. No excessive sweating or thirst. No cold intolerance. PHYSICAL EXAMINATION Gen: This is a 72-year-old female. She is resting on recliner and appears to be comfortable. HEENT: Head is atraumatic, normocephalic. Pupils equal, round. Sclerae is anicteric. NECK: Supple. No JVD. No lymphadenopathy. No thyromegaly. LUNGS: Egophony right upper lobe. No wheezes or rhonchi. No intercostal retrac tions. HEART: First heart sound is depressed, second heart sound is normal, there is systolic ejection murmur 2/6 located in the right upper sternal border, there is aortic regurgitation murmur ABDOMEN: Soft. Bowel sounds are present. No masses. No tenderness. EXTREMITIES: there is no edema, no calf tenderness chondrocytes pedis +2 bilateral NEUROLOGICAL: Patient is awake, alert and oriented x3. Cranial nerves 2 through 12 are grossly intact, muscle power 5 out of 5 in upper and lower extremities bilaterally, no pronation drift ASSESSMENT AND PLAN 1. Right upper lobe pneumonia. Consult with pulmonary medicine, continue patient on antibiotics in form of azithromycin and ceftriaxone. Legionella antigen, pro-calcitonin and blood cultures in progress. Unable to obtain sputum culture. 2. Mental status changes, metabolic encephalopathy possibly related to TIA. Consult with neurology, PT, OT, ST consults. Continue patient on aspirin 325 mg daily, Lipitor 40 mg daily for secondary prevention. I did review echocardiogram and MRI of the brain 3. Hypertension and hypertensive cardiovascular disease per Continue lisinopril 10 mg daily, we'll continue to monitor the patient blood pressure very closely 3 4. Hypothyroidism. Continue levothyroxine 100 g daily. Recent TSH 3.08 5. Hyperlipidemia. Continue atorvastatin 40 mg daily. keep LDL cholesterol 55- 70 6. Small B-cell non-Hodgkin's lymphoma, in remission. 7. Old CVA appeared on the MRI of the brain. Continue to monitor the patient very closely, continue risk factor modifications 7. GI prophylaxis. Continue Protonix 40 mg once every day 8. DVT prophylaxis. Lovenox. 40 mg subcutaneously once every day. 9. Prognosis is guarded. Objective - Vital Signs Vital signs: Vital Signs Temp 98.2 F 10/08/22 07:00 Pulse 58 L 10/08/22 08:00 Resp 16 10/08/22 08:00 BP 113/62 10/08/22 07:00 Pulse Ox 100 10/08/22 07:00 FiO2 Intake & Output 10/07/22 10/08/22 10/08/22 18:59 06:59 18:59 Intake Total 118 Balance 118 Weight 78.018 kg Intake: Oral 118 Other: Voiding Method Toilet Toilet # Voids 2 1 - Labs CBC & Chem 7: 10/06/22 14:30 10/06/22 14:30
--- NOTE | 2022-10-09 13:21 | P.DS ---
Providers Date of admission: 10/06/22 15:31 Expected date of discharge: 10/09/22 Attending physician: Olivia Little Consults: 10/06/22 15:20 Consult Physician Routine Consulting Provider: Bisi Adams Consult Reason/Comments: lung infiltrate Do you want consulting provider notified?: Yes Consult Physician Routine Consulting Provider: Nehemias Sanches Consult Reason/Comments: tia Do you want consulting provider notified?: Yes 10/08/22 11:38 Consult Physician Routine Consulting Provider: Tony Laek Consult Reason/Comments: AI Do you want consulting provider notified?: Yes [facility]: HISTORY OF PRESENT ILLNESS This is a 72-year-old female with past medical history of hypertension, hypothyroidism, small B-cell non-Hodgkin's lymphoma, stress incontinence, mixed hyperlipidemia, aortic valve insufficiency, carotid artery stenosis bilaterally, osteopenia of the right hip. Patient presented to [facility] emergency center due to confusion. Patient gives history that Monday she was out golfing in the morning with friends and felt a little lightheaded and hazy feeling. She denied having any weakness and no numbness or tingling. She came back home and felt very exhausted and went to bed and slept for a number of hours. At 4 PM she got up to go golfing again with a different friend. 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 She again did not have any weakness and did not have any numbness or tingling and no change in his age. After she golfed in the evening she went home and climbed into bed with her golfed close on and went to sleep. She states her appetite has been good. She denies having any cough or sputum production. No fever or chills. She did have travel to [place] 3 weeks ago but did not feel ill while away. She's had no vomiting no diarrhea. She feels that she is feeling better now but it appears her mental status is slightly off as when leaving the room, patient got up and grabbed her IV bag and was going to walk less out to the door. WBC 12.9, hemoglobin 10.7, platelet count 314. INR 1.0. Sodium 133, potassium 4.4, chloride 99, CO2 24, BUN 18 and creatinine 0.6. Glucose 105. Lactic acid 0.6. Calcium 8.5. Total bilirubin 0.6. AST 56, ALT 42, alkaline phosphatase 135. Total protein 6.7 and albumin 3.6. Cholesterol 78, LDL 178, HDL 124. Influenza A, influenza B, RSV and Covid 19 not detected. CAT scan of the brain reveals age indeterminate lacunar injuries involving the left frontal lobe farris radiata and basal ganglia. No acute hemorrhage. Chronic small vessel ischemic disease. EKG sinus rhythm with no acute ST changes. Chest x-ray reveals patchy right upper lobe airspace opacities concerning for pneumonia. CTA of the chest revealed no evidence of pulmonary embolism. Patchy groundglass opacities within the right upper lobe suspicious for atypical pneumonia. Likely reactive mediastinal and right hilar lymphadenopathy secondary to #2. Carotid ultrasounds revealed less than 50% stenosis of bilateral carotid bifurcation. Repeat chest x-ray reveals right upper lobe airspace opacities similar to prior. Patient was started on azithromycin and ceftriaxone. Consult in place with p [facility] medicine and neurology.. 10/08: Patient is sitting up in the chair in no apparent distress, she denies any chest pain, shortness breath, she appears to be more appropriate today, yesterday she was a bit confused, patient underwent the ultrasound of the carotid that showed 50% stenosis of bilateral carotid arteries, patient had a Chest x-ray that showed right upper lobe airspace disease, she has been on IV antibiotic in the form of Zithromax and ceftriaxone has been seen in consultation by pulmonary medicine, clinically does not have signs or symptoms of pneumonia, we'll check auto immune panel patient also was seen in consultation by neurology for possible TIA/CVA , patient underwent MRI of the brain with and without gadolinium did not show evidence of acute infarct or bleed it did show evidence of foot chronic small vessel disease, echocardiogram showed normal ejection fraction with mild aortic stenosis with moderate aortic regurgitation we will consult cardiology for further evaluation, blood cultures were obtained to rule out any positive blood culture rule out endocarditis Discharge diagnoses: 1. Right upper lobe pneumonia. 2. Mental status changes, metabolic encephalopathy possibly related to TIA. 3. Hypertension and hypertensive cardiovascular disease per 4. Hypothyroidism. 5. Hyperlipidemia. 6. Small B-cell non-Hodgkin's lymphoma, in remission. 7. 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 Aortic regurgitation. Patient Condition at Discharge: Stable Plan - Discharge Summary New Discharge Prescriptions: No Action Levothyroxine Sodium [Synthroid] 100 mcg PO DAILY lisinopriL [Zestril] 10 mg PO DAILY Discharge Medication List Levothyroxine Sodium [Synthroid] 100 mcg PO DAILY 02/10/15 [History] lisinopriL [Zestril] 10 mg PO DAILY 10/06/22 [History] Follow up Appointment(s)/Referral(s): Bisi Adams MD [STAFF PHYSICIAN] - 1 Week Olivia Little MD [Primary Care Provider] - 1-2 days Bimal Almanzar DO [STAFF PHYSICIAN] - 1 Week
[2022-10-09 14:48] VITALS: BP 119/73; PULSE 72; TEMP 97.6
[2022-10-10 02:14] LABS: Mycoplasma IgG Antibody (EIA) 0.69 INDEX (<=0.90); Mycoplasma IgM Antibody 0.19 INDEX (<=0.90)
[2022-10-10 14:54] LABS: C-ANCA <1:20 Titer (<1:20)
[2022-10-11 01:17] LABS: Cyclic Citrull Pep IgG Unit <1.5 U/mL (<=3.9); Cyclic Citrullinated Pep IgG Negative
== END 2022-10-09 14:44 | disposition home or self-care (01) ==
LOC: EC 12:44 → 6NMEDSUR 15:31
PROVIDERS: ADMIT Internal Medicine; ATTEND Internal Medicine
DX: J18.9 Pneumonia, unspecified organism (principal); G93.41 Metabolic encephalopathy; R41.82 Altered mental status, unspecified; I10 Essential (primary) hypertension; E78.2 Mixed hyperlipidemia; I25.10 Atherosclerotic heart disease of native coronary artery without angina pectoris; E03.9 Hypothyroidism, unspecified; I65.23 Occlusion and stenosis of bilateral carotid arteries; Z20.822 Contact with and (suspected) exposure to COVID-19; Z85.72 Personal history of non-Hodgkin lymphomas; Z86.73 Personal history of transient ischemic attack (TIA), and cerebral infarction without residual deficits; I35.1 Nonrheumatic aortic (valve) insufficiency; M85.88 Other specified disorders of bone density and structure, other site; N39.3 Stress incontinence (female) (male); Z98.42 Cataract extraction status, left eye; Z98.41 Cataract extraction status, right eye; Z96.1 Presence of intraocular lens; Z80.3 Family history of malignant neoplasm of breast; Z80.0 Family history of malignant neoplasm of digestive organs; Z82.49 Family history of ischemic heart disease and other diseases of the circulatory system; Z80.52 Family history of malignant neoplasm of bladder; Z79.890 Hormone replacement therapy; Z79.899 Other long term (current) drug therapy; Z88.8 Allergy status to other drugs, medicaments and biological substances; Z91.040 Latex allergy status
CPT/HCPCS: 96361 ×2; 96366 ×2; 96372; 96365; 96367; 99285; 36415; 93005; 93306; 97161; 86255; 86738 ×2; 80061; 80053 ×2; 87449; 85652; 82607; 82378; 82728; 82746; 83540; 83550; 83605; 83615; 85025 ×2; 85610; 85730; 86431; 87040 ×2; 86038; 87070; 87205; 86200; 83036; 84145; 87636; 71045; 71046; 93880; 70450; 71275; 70553; G0378 ×4; J0456; J0696 ×3; J1650 ×2; Q9967; A9585

== ENCOUNTER → 2022-10-21 | Outpatient (CLI) | payer MEDICARE ==
--- NOTE | 2022-10-22 01:34 | EEG ---
ELECTROENCEPHALOGRAM REPORT CLINICAL HISTORY: This is a 72-year-old woman with reported confusion and possible concern for transient global amnesia concerning for seizure versus TIA in which she presented to the hospital on 10/06/2022. The video EEG is obtained to evaluate for seizure epileptiform activity. RELEVANT MEDICATION: The patient is not on any antiepileptic drugs. EEG TYPE: A routine 21-channel EEG is performed with video using the 10/20 electrode placement system. DESCRIPTION: Wakefulness is only obtained. During awake state, the posterior-dominant rhythm consists of low to moderate voltage of 10-10.5 hertz activity that is well modulated, well sustained. There is no physiological stage 2 sleep architecture. There is no focal slowing. Interictal ictal: There is questionable sharp and slow waves over the right temporal region and with questionable phase reversal over the T6 concerning for epileptiform discharges. Otherwise, no seizures noted. ACTIVATION PROCEDURE: Photic stimulation did not evoke a positive driving response. There is no abnormality during the photic stimulation. Hyperventilation is not performed. CLINICAL INTERPRETATION: This is abnormal routine EEG. There are questionable sharp and slow waves over the right temporal region with questionable phase reversal over T6 concerning for epileptiform discharges which can increase risk for seizures. Otherwise, the background is normal and there is no focal slowing or seizure noted during the study. I highly recommend a prolonged 2.5-hour EEG outpatient for further evaluation. Clinical correlation is recommended. OFE / SARANN: [id number] / MTDHarley
== END ==
LOC: NEUROMAIN 07:48
PROVIDERS: ATTEND Student in an Organized Health Care Education/Training Program
DX: G45.9 Transient cerebral ischemic attack, unspecified (principal); Z91.040 Latex allergy status; Z91.048 Other nonmedicinal substance allergy status
CPT/HCPCS: 95816

== ENCOUNTER 2022-11-09 12:04 | Day surgery (SDC) | payer MEDICARE ==
[2022-11-09] MEDS ORDERED: SODIUM CHLORIDE 0.9% 500 ML 500 ML IV ONE (12:14)
[2022-11-09 12:36] VITALS: RESP 16; TEMP 98.2
[2022-11-09] MEDS ORDERED: fentaNYL (PF) 50 MCG/ML 2 ML AMP ONE (13:36)
[2022-11-09] MEDS: BENZOCAINE SPRAY 1 CAN MUCOUS MEM ONE ×2 (13:48→13:56)
[2022-11-09] MEDS ORDERED: MIDAZOLAM 2 MG/2 ML VIAL IVP ONE ×2 (13:56→13:58)
[2022-11-09] MEDS: fentaNYL (PF) 50 MCG/ML 2 ML AMP IVP ONE ×2 (13:56→13:58)
--- NOTE | 2022-11-09 14:23 | P.TEE ---
Description of Procedure(s): Procedure performed: Transesophageal Echocardiogram with color flow doppler, pulsed wave doppler and continuous wave doppler, moderate conscious sedation Moderate conscious sedation: Moderate conscious sedation was supplied with direct supervision of myself using Versed and Fentanyl. Complications: none Indications: New aortic insufficiency with infection, rule out vegetation, rule out cardiac source of emboli with MRI showing prior stroke. PROCEDURE: After the risks, benefits and alternatives of the above mentioned procedure was explained in detail with the patient, informed consent was obtained. Patient was brought to the lab in a fasting state. Patient was given IV Versed and Fentanyl for sedation. The throat was sprayed with Hurricane to anesthetize the throat. A lubricated Omni probe was then introduced into the esophagus and stomach and multiple views were obtained. 2D echo with color flow doppler, pulsed wave doppler and continuous wave doppler was utilized. Agitated saline bubbles were injected to assess for any intra-atrial shunt. The probe was then removed. Patient tolerated the procedure well. Patient was transferred to the post procedure area in stable and satisfactory condition. FINDINGS: 1. The aortic valve is tricuspid with mild to moderate aortic insufficiency. There is no vegetation. 2. The mitral valve appears be normal with mild mitral regurgitation. 3. Tricuspid valve appears to be normal. 4. The interatrial septum is intact. No evidence of PFO. 5. Left atrial appendage is free of clot. 6. Left ventricular ejection fraction is 60% 7. There is prominent eustachian valve in the right atrium
[2022-11-09 16:43] VITALS: BP 108/70; PULSE 59
== END 2022-11-09 15:28 | disposition home or self-care (01) ==
LOC: CATHCVL 12:04
PROVIDERS: ATTEND Internal Medicine
DX: I34.0 Nonrheumatic mitral (valve) insufficiency (principal); I10 Essential (primary) hypertension; E78.2 Mixed hyperlipidemia; E03.9 Hypothyroidism, unspecified; I65.23 Occlusion and stenosis of bilateral carotid arteries; Z82.49 Family history of ischemic heart disease and other diseases of the circulatory system; Z85.72 Personal history of non-Hodgkin lymphomas; Z79.899 Other long term (current) drug therapy
CPT/HCPCS: 93312; 93320; 93325; J2250; J3010

== ENCOUNTER → 2022-12-16 | Outpatient (CLI) | payer MEDICARE ==
[2022-12-16 13:36] LABS: African American GFR (CKD) 82 (>60 ml/min/1.73 sqM); Blood Urea Nitrogen 21 mg/dL (7-17); Non-African American GFR(CKD) 71 (>60 ml/min/1.73 sqM)
--- NOTE | 2022-12-16 15:57 | CT ---
EXAMINATION TYPE: CT chest w con DATE OF EXAM: 12/16/2022 COMPARISON: 10/06/2022 HISTORY: prior abnormal chest imaging CT DLP: 305.8 mGycm, Automated exposure control for dose reduction was used. CONTRAST: Performed injected with 100 mL of Isovue 300. TECHNIQUE: Axial images were obtained at 5 mm thick sections. Reconstructed images are reviewed on [employer] computer in the coronal plane. FINDINGS: Portion of the thyroid visualized is normal. No suspicious lung nodules or focal infiltrates are present. Previous infiltrates have resolved. There is a 1.4 cm pretracheal lymph node. This is slightly more prominent than the prior study. Bhavin tional adenopathy however appears diminished in prominence. Additional shotty lymphadenopathy is pres ent at the aortopulmonic window and pretracheal space. No enlarged hilar adenopathy is evident. The ascending aorta diameter at the level of the main pulmonary artery is 3.5 cm. The main pulmonary artery diameter at the bifurcation is 2.[address] sections are obtained through the upper abdomen. Abdomen is essentially unremarkable. IMPRESSIONS: 1. Persistent large 1.4 cm pretracheal lymph node slightly more prominent than comparison. 2. Resolution previous right lung infiltrates.
== END | disposition home or self-care (01) ==
LOC: RADCTMAIN 13:02
PROVIDERS: ATTEND Internal Medicine
DX: R91.8 Other nonspecific abnormal finding of lung field (principal)
CPT/HCPCS: 82565; 84520; 71260; 36415; Q9967

== ENCOUNTER → 2022-12-29 | Outpatient (CLI) | payer MEDICARE ==
--- NOTE | 2022-12-29 18:34 | EEG ---
ELECTROENCEPHALOGRAM REPORT ELECTROENCEPHALOGRAM (EEG) REPORT: TECHNIQUE: This is a report from a prolonged 2-1/2-hour outpatient digital video EEG performed using the 10/20 International Electrode Placement System. HISTORY: The patient was discharged from [facility] in September of 2022. The patient was in her usual state of health and went to play golf with a friend, started getting confused and forgot some of the things that she had done throughout the day and was feeling spacey. CURRENT MEDICATIONS: 1. Zestril. 2. Synthroid. 3. Lipitor. 4. Aspirin. FINDINGS: RECORDING START TIME: 12/29/2022, at 08:17 a.m. RECORDING END TIME: 12/29/2022, at 11:11 a.m. EVENTS: During this 2-1/2-hour video EEG, no clinical or electrographic seizures were recorded. BACKGROUND: The background activity consisted of 9 to 10 Hz rhythmic waveforms symmetrically distributed throughout both posterior quadrants. ACTIVATION: 1. Hyperventilation: Not performed. 2. Photic stimulation: Symmetric driving seen. SLEEP: Stages I and II sleep noted. ABNORMALITIES: None. IMPRESSION: Normal 2-1/2-hour video EEG. No clinical or electrographic seizures were recorded. No epileptiform activity was present. MMODL / IJN: [id number] /
== END ==
LOC: NEUROMAIN 08:02
PROVIDERS: ATTEND Student in an Organized Health Care Education/Training Program
DX: R41.0 Disorientation, unspecified (principal); Z91.040 Latex allergy status; Z88.8 Allergy status to other drugs, medicaments and biological substances
CPT/HCPCS: 95700; 95713

== ENCOUNTER → 2023-06-15 | Outpatient (CLI) | payer MEDICARE ==
[2023-06-15 12:02] LABS: African American GFR (CKD) 83 (>60 ml/min/1.73 sqM); Blood Urea Nitrogen 28 mg/dL (7-17); Non-African American GFR(CKD) 72 (>60 ml/min/1.73 sqM)
--- NOTE | 2023-06-15 13:07 | CT ---
EXAMINATION: CT CHEST, ABDOMEN AND PELVIS WITH IV CONTRAST DATE OF EXAMINATION: 06/15/2023. COMPARISON: Chest CT on 12/16/2022. CT chest, abdomen and pelvis on 07/08/2022. INDICATION: Lymphoma follow-up. PROCEDURE: Axial CT of the chest, abdomen and pelvis was performed following the intravenous adminis tration of 100 ml Isovue 300. Coronal and sagittal reformats were performed. CT dose lowering techni ques were used, to include: automated exposure control, adjustment for patient size, and/or use of it erative reconstruction. FINDINGS: CHEST: Mediastinum and Meche: There is some scattered axillary adenopathy seen bilaterally which is not signi ficant changed since the previous examination. There is some mild prominent and enlarged lymph nodes within the mediastinum which are also very similar to the previous examination. Pleural and Pericardial spaces: There are no pleural or pericardial effusions. Cardiovascular: The thoracic aorta is normal in size without evidence of aneurysm or dissection. Pulmonary Artery: There are no central pulmonary arterial filling defects. Lung Parenchyma and Airways: The lungs are clear. ABDOMEN: Liver and Biliary system: Normal. Adrenal glands: Normal. 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 The kidneys otherw ise appear unremarkable. Spleen: Normal. Pancreas: Normal. Gallbladder: Normal. Lymph nodes, Peritoneum and mesentery: There is some scattered enlarged lymph nodes seen throughout the retroperitoneum. The largest of these lymph nodes measures approximately 1.6 cm in short axis emilee meter in the aortocaval region which previously measured approximately 1.3 cm in short axis diameter. A left periaortic lymph node measures 1.4 cm in short axis diameter and previously measured 9 mm in short axis diameter. Several alerted dictation all lymph nodes throughout the retroperitoneum are sli ghtly more prominent than the previous examination available for comparison. There is a lymph node in the rossi hepatis that measures up to 1.9 cm in short axis diameter and previously measured 1.4 cm i n short axis diameter. Gastrointestinal tract: There are no dilated loops of bowel or free intraperitoneal air. . The appe ndix is normal. Aorta/IVC: Aorta normal. No aortic aneurysm or dissection. IVC normal. Abdominal wall: Normal. PELVIS: Fluid: There is no free fluid in the pelvis. Lymph Nodes: Enlarged right external iliac lymph node measures 2.2 cm in short axis diameter, previo usly 1.7 cm. Several other scattered lymph nodes are seen throughout the pelvis which appear slightly larger than the previous examination. Additional right pelvic sidewall lymph node measures 1.4 cm in short axis diameter and previously measured 1.3 cm.. Urinary bladder: Normal. BONES: There are no osseous destructive lesions.. ADDITIONAL SIGNIFICANT FINDINGS: Uterine fibroids are unchanged.. IMPRESSION: 1. Slightly more prominent lymph nodes seen within the retroperitoneum and pelvis and compared to the previous examination available for comparison. 2. No significant change in the adenopathy within the chest from the recent chest CT available for co mparison as above. 3. Additional findings as above.
== END | disposition home or self-care (01) ==
LOC: RADCTMAIN 10:08
PROVIDERS: ATTEND Internal Medicine Hematology & Oncology
DX: D25.9 Leiomyoma of uterus, unspecified (principal); D17.71 Benign lipomatous neoplasm of kidney; C83.01 Small cell B-cell lymphoma, lymph nodes of head, face, and neck; G45.9 Transient cerebral ischemic attack, unspecified; Z71.3 Dietary counseling and surveillance
CPT/HCPCS: 82565; 84520; 71260; 74177; 36415; Q9967

== ENCOUNTER 2023-08-30 15:41 | Emergency (ER) | payer MEDICARE ==
[2023-08-30 16:06] VITALS: TEMP 97.3
--- NOTE | 2023-08-30 16:34 | ED ---
Dizziness HPI - General Source: patient, RN notes reviewed Mode of arrival: ambulatory Limitations: no limitations <Rupal Marshall - Last Filed: 08/30/23 16:30> <Jethro Martínez - Last Filed: 08/30/23 19:09> - General Chief Complaint: Dizziness Stated Complaint: Dizziness Time Seen by Provider: 08/30/23 15:58 - History of Present Illness Initial Comments: Rashel bob is a 73-year-old female presents emergency department chief complaint of dizziness and feelings of off-balance that started abruptly today. Patient states that she was walking helping set up for the election when she felt very off-balanced and fatigued. She denies loss of consciousness, heart palpitations, chest pain or pressure. history of TIA in 2022 and 2019. denies use of blood thinners or history of NV. (Rupal Marshall) 73-year-old female presents for episode of dizziness which lasted several hours occurred earlier today. Patient states she was somewhat anxious at the time. She has previous history of TIA. She is on aspirin. No associated numbness or weakness. No headache. No chest pain. No fever. No abdominal pain. No nausea vomiting. Patient symptoms have resolved currently. (Jethro Martínez) - Related Data Home Medications Medication Instructions Recorded Confirmed Levothyroxine Sodium [Synthroid] 100 mcg PO DAILY 02/10/15 11/09/22 lisinopriL [Zestril] 10 mg PO DAILY 10/06/22 11/08/22 Previous Rx's Medication Instructions Recorded Aspirin 325 mg PO DAILY tab 10/09/22 Atorvastatin [Lipitor] 40 mg PO DAILY #90 tab 10/09/22 Allergies Allergy/AdvReac Type Severity Reaction Status Date / Time latex Allergy Anaphylaxis Verified 11/09/22 12:21 P-phenylenediamine Allergy Swelling Uncoded 11/09/22 12:21 Review of Systems ROS Other: All systems not noted in ROS Statement are negative. <Rupal Marshall - Last Filed: 08/30/23 16:30> ROS Other: All systems not noted in ROS Statement are negative. <Jethro Martínez - Last Filed: 08/30/23 19:09> ROS Statement: Those systems with pertinent positive or pertinent negative responses have been documented in the HPI. Past Medical History Past Medical History: Cancer, CVA/TIA, Eye Disorder, Thyroid Disorder Additional Past Medical History / Comment(s): TIA yrs. ago without further problems.,. B-cell lymphoma History of Any Multi-Drug Resistant Organisms: None Reported Additional Past Surgical History / Comment(s): Infected milk duct yrs. ago. COLONOSCOPY X 3. CATARACT SX ron EYE. Lymph node removed in neck Past Anesthesia/Blood Transfusion Reactions: No Reported Reaction Past Psychological History: No Psychological Hx Reported Smoking Status: Never smoker Past Alcohol Use History: Occasional Past Drug Use History: None Reported - Past Family History Sister(s) Family Medical History: Cancer Mother Family Medical History: Cancer Additional Family Medical History / Comment(s): Breast Brother(s) Family Medical History: Cancer Additional Family Medical History / Comment(s): TWO BROTHERS WITH CANCER- Pancreatic and BLADDER <Rupal Marshall - Last Filed: 08/30/23 16:30> General Exam Limitations: no limitations <Rupal Marshall - Last Filed: 08/30/23 16:30> General appearance: alert, in no apparent distress Head exam: Present: atraumatic, normocephalic Eye exam: Present: normal appearance, PERRL ENT exam: Present: normal exam Neck exam: Present: normal inspection. Absent: tenderness, meningismus Respiratory exam: Present: normal lung sounds bilaterally. Absent: respiratory distress, wheezes Cardiovascular Exam: Present: regular rate, normal rhythm GI/Abdominal exam: Present: soft. Absent: distended, tenderness Extremities exam: Present: normal inspection, normal capillary refill. Absent: pedal edema, calf tenderness Neurological exam: Present: alert, oriented X3, CN II-XII intact, normal gait, other (No ataxia, steady gait, no focal findings.). Absent: motor sensory deficit Psychiatric exam: Present: normal affect, normal mood Skin exam: Present: warm, dry, intact. Absent: cyanosis, diaphoretic <Jethro Martínez - Last Filed: 08/30/23 19:09> - General Exam Comments Initial Comments: Visual Physical Exam Vital signs reviewed General: Well-appearing, nontoxic, no acute distress. Head: Normocephalic, atraumatic Eyes: PERRLA, EOMI ENT: Airway patent Chest: Nonlabored breathing Skin: No visual rash, normal skin tone Neuro: Alert and oriented 3 Musculoskeletal: No gross abnormalities (Rupal Marshall) Course Vital Signs 08/30/23 15:44 Temperature 97.3 F L Pulse Rate 69 Respiratory 20 Rate Blood Pressure 139/80 O2 Sat by Pulse 98 Oximetry Medical Decision Making <Rupal Marshall - Last Filed: 08/30/23 16:30> - Lab Data Result diagrams: 08/30/23 17:21 08/30/23 17:21 <Jethro Martínez - Last Filed: 08/30/23 19:09> - Medical Decision Making I completed the quick note portion of this chart signed Rupal Marshall PA-C (Rupal Marshall) Was pt. sent in by a medical professional or institution (ANAMARIA Jones, NAME PLATE STAMPING MACHINE OPERATOR, urgent care, hospital, or long term...) When possible be specific @ -No Did you speak to anyone other than the patient for history (EMS, parent, family, police, friend...)? What history was obtained from this source @ -No Did you review nursing and triage notes (agree or disagree)? Why? @ -I reviewed and agree with nursing and triage notes Were old charts reviewed (outside hosp., previous admission, EMS record, old EKG, old radiological studies, urgent care reports/EKG's, long term records)? Report findings @ -No old charts were reviewed Differential Dizziness: Benign paroxysmal positional Vertigo, Menieres disease, otitis media, acoustic neuroma, vertebrobasilar insufficiency, cerebellar stroke, encephalitis, hypovolemic, arrhythmia, coronary artery syndrome, anemia, this is not meant to be an all-inclusive list EKG interpreted by me (3pts min.). @ -Sinus rhythm rate of 62, SC interval 156, QRS duration 97, QTc [address] segment elevation. X-rays interpreted by me (1pt min.). @ -None done CT interpreted by me (1pt min.). @CT brain negative for intracranial hemorrhage or mass effect U/S interpreted by me (1pt. min.). @ -None done What testing was considered but not performed or refused? (CT, X-rays, U/S, labs)? Why? @ -None What meds were considered but not given or refused? Why? @ -None Did you discuss the management of the patient with other professionals (professionals i.e. , PA, NAME PLATE STAMPING MACHINE OPERATOR, lab, RT, psych nurse, social services assistant, seed and fertilizer specialist, teacher, disability liaison officer, social work case manager)? Give summary @ -No Was smoking cessation discussed for >3mins.? @ -No Was critical care preformed (if so, how long)? @ -No Were there social determinants of health that impacted care today? How? (Homelessness, low income, unemployed, alcoholism, drug addiction, transportation, low edu. Level, literacy, decrease access to med. care, penitentiary, rehab)? @ -No Was there de-escalation of care discussed even if they declined (Discuss DNR or withdrawal of care, Hospice)? DNR status @ -No What co-morbidities impacted this encounter? (DM, HTN, Smoking, COPD, CAD, Cancer, CVA, ARF, Chemo, Hep., AIDS, mental health diagnosis, sleep apnea, morbid obesity)? @ -TIA Was patient admitted / discharged? Hospital course, mention meds given and route, prescriptions, significant lab abnormalities, going to OR and other pertinent info. @73-year-old female with an episode of dizziness. Symptoms resolved at the time my evaluation. Workup is unremarkable including EKG, CBC, CMP, urinalysis, head CT. Patient feeling better, steady gait. Eager for discharge. Undiagnosed new problem with uncertain prognosis? @ -No Drug Therapy requiring intensive monitoring for toxicity (Heparin, Nitro, Insulin, Cardizem)? @ -No Were any procedures done? @ -No Diagnosis/symptom? @ dizzy episode, resolved Acute, or Chronic, or Acute on Chronic? @Acute Uncomplicated (without systemic symptoms) or Complicated (systemic symptoms)? @ -Default Side effects of treatment? @ -No Exacerbation, Progression, or Severe Exacerbation? @ -No Poses a threat to life or bodily function? How? (Chest pain, USA, NV, pneumonia, PE, COPD, DKA, ARF, appy, cholecystitis, CVA, Diverticulitis, Homicidal, Suicidal, threat to staff... and all critical care pts) @ -[Low risk at this time (Jethro Martínez) - Lab Data Lab Results 08/30/23 08/30/23 08/30/23 Range/Units 17:21 17:21 17:21 WBC 6.4 (3.8-10.6) k/uL RBC 3.82 (3.80-5.40) m/uL Hgb 12.6 (11.4-16.0) gm/dL Hct 38.2 (34.0-46.0) % MCV 99.9 (80.0-100.0) fL MCH 32.9 (25.0-35.0) pg MCHC 33.0 (31.0-37.0) g/dL RDW 12.6 (11.5-15.5) % Plt Count 136 L (150-450) k/uL MPV 7.8 Neutrophils % (Manual) 28 % Lymphocytes % (Manual) 68 % Monocytes % (Manual) 4 % Neutrophils # (Manual) 1.79 (1.3-7.7) k/uL Lymphocytes # (Manual) 4.35 (1.0-4.8) k/uL Monocytes # (Manual) 0.26 (0-1.0) k/uL Nucleated RBCs 0 (0-0) /100 WBC Manual Slide Review Performed RBC Morphology Normal PT 10.2 (10.0-12.5) sec INR 0.9 (<1.2) APTT 24.6 (22.0-30.0) sec Sodium 137 (137-145) mmol/L Potassium 4.1 (3.5-5.1) mmol/L Chloride 106 (98-107) mmol/L Carbon Dioxide 23 (22-30) mmol/L Anion Gap 8 mmol/L BUN 21 H (7-17) mg/dL Creatinine 0.73 (0.52-1.04) mg/dL Est GFR (CKD-EPI)AfAm >90 (>60 ml/min/1.73 sqM) Est GFR (CKD-EPI)NonAf 81 (>60 ml/min/1.73 sqM) Glucose 105 H (74-99) mg/dL Calcium 8.8 (8.4-10.2) mg/dL Total Bilirubin 0.5 (0.2-1.3) mg/dL AST 32 (14-36) U/L ALT 23 (4-34) U/L Alkaline Phosphatase 116 (38-126) U/L Troponin I (0.000-0.034) ng/mL Total Protein 7.1 (6.3-8.2) g/dL Albumin 4.2 (3.5-5.0) g/dL Urine Color Urine Appearance (Clear) Urine pH (5.0-8.0) Ur Specific Dunn[place] (1.001-1.035) Urine Protein (Negative) Urine Glucose (UA) (Negative) Urine Ketones (Negative) Urine Blood (Negative) Urine Nitrite (Negative) Urine Bilirubin (Negative) Urine Urobilinogen (<2.0) mg/dL Ur Leukocyte Esterase (Negative) 08/30/23 08/30/23 Range/Units 17:21 18:24 WBC (3.8-10.6) k/uL RBC (3.80-5.40) m/uL Hgb (11.4-16.0) gm/dL Hct (34.0-46.0) % MCV (80.0-100.0) fL MCH (25.0-35.0) pg MCHC (31.0-37.0) g/dL RDW (11.5-15.5) % Plt Count (150-450) k/uL MPV Neutrophils % (Manual) % Lymphocytes % (Manual) % Monocytes % (Manual) % Neutrophils # (Manual) (1.3-7.7) k/uL Lymphocytes # (Manual) (1.0-4.8) k/uL Monocytes # (Manual) (0-1.0) k/uL Nucleated RBCs (0-0) /100 WBC Manual Slide Review RBC Morphology PT (10.0-12.5) sec INR (<1.2) APTT (22.0-30.0) sec Sodium (137-145) mmol/L Potassium (3.5-5.1) mmol/L Chloride (98-107) mmol/L Carbon Dioxide (22-30) mmol/L Anion Gap mmol/L BUN (7-17) mg/dL Creatinine (0.52-1.04) mg/dL Est GFR (CKD-EPI)AfAm (>60 ml/min/1.73 sqM) Est GFR (CKD-EPI)NonAf (>60 ml/min/1.73 sqM) Glucose (74-99) mg/dL Calcium (8.4-10.2) mg/dL Total Bilirubin (0.2-1.3) mg/dL AST (14-36) U/L ALT (4-34) U/L Alkaline Phosphatase (38-126) U/L Troponin I <0.012 (0.000-0.034) ng/mL Total Protein (6.3-8.2) g/dL Albumin (3.5-5.0) g/dL Urine Color Colorless Urine Appearance Clear (Clear) Urine pH 6.0 (5.0-8.0) Ur Specific [place] 1.004 (1.001-1.035) Urine Protein Negative (Negative) Urine Glucose (UA) Negative (Negative) Urine Ketones Negative (Negative) Urine Blood Negative (Negative) Urine Nitrite Negative (Negative) Urine Bilirubin Negative (Negative) Urine Urobilinogen <2.0 (<2.0) mg/dL Ur Leukocyte Esterase Negative (Negative) Disposition <Rupal Marshall - Last Filed: 08/30/23 16:30> Is patient prescribed a controlled substance at d/c from ED?: No Time of Disposition: 19:06 <Jethro Martínez - Last Filed: 08/30/23 19:09> Clinical Impression: Dizziness Disposition: HOME SELF-CARE Condition: Good Instructions (If sedation given, give patient instructions): Dizziness (ED) Referrals: Olivia Little MD [Primary Care Provider] - 1-2 days
[2023-08-30 17:33] LABS: HCT 38.2 % (34.0-46.0); HGB 12.6 gm/dL (11.4-16.0); MCH 32.9 pg (25.0-35.0); MCV 99.9 fL (80.0-100.0); Mean Platelet Volume 7.8; Platelet Count 136 k/uL (150-450); RBC 3.82 m/uL (3.80-5.40); RDW 12.6 % (11.5-15.5); WBC 6.4 k/uL (3.8-10.6)
[2023-08-30 17:47] LABS: INR 0.9 (<1.2); Partial Thromboplastin Time 24.6 sec (22.0-30.0); Prothrombin Time 10.2 sec (10.0-12.5)
[2023-08-30 17:48] LABS: ALT 23 U/L (4-34); AST 32 U/L (14-36); African American GFR (CKD) >90 (>60 ml/min/1.73 sqM); Albumin 4.2 g/dL (3.5-5.0); Alkaline Phosphatase 116 U/L (38-126); Anion Gap 8 mmol/L; Blood Urea Nitrogen 21 mg/dL (7-17); Calcium 8.8 mg/dL (8.4-10.2); Carbon Dioxide 23 mmol/L (22-30); Chloride 106 mmol/L (98-107); Glucose 105 mg/dL (74-99); Non-African American GFR(CKD) 81 (>60 ml/min/1.73 sqM); Potassium 4.1 mmol/L (3.5-5.1); Sodium 137 mmol/L (137-145); Total Bilirubin 0.5 mg/dL (0.2-1.3); Total Protein 7.1 g/dL (6.3-8.2)
--- NOTE | 2023-08-30 18:24 | CT ---
EXAMINATION TYPE: CT brain wo con CT DLP: 1203.6 mGycm, Automated exposure control for dose reduction was used. DATE OF EXAM: 08/30/2023 6:15 PM COMPARISON: 10/06/2022. CLINICAL INDICATION:Female, 73 years old with history of Dizzy, dizziness, ams TECHNIQUE: Brain: Axial CT images of the brain were obtained with coronal and sagittal reformats created and rev iewed. Contrast used: None. Oral contrast used: None. FINDINGS: Brain: Extra-axial spaces: No abnormal extra-axial fluid collections. Ventricular system: Within normal limits Cerebral parenchyma: No acute intraparenchymal hemorrhage or mass effect. The nuñez-white junction is well differentiated. Scattered hypoattenuating areas are seen within the white matter. Cerebellum: Unremarkable. Mass effect: No evidence of midline shift. Intracranial vasculature: Atherosclerotic calcifications of the intracranial vessels. Soft tissues: Normal. Calvarium/osseous structures: No depressed skull fracture. Paranasal sinuses and mastoid air cells: Mild scattered paranasal sinus disease. Visualized orbits: Bilateral aphakia IMPRESSION: 1. No acute intracranial process. 2. Nonspecific white matter changes, likely secondary to chronic small vessel ischemic disease.
[2023-08-30 18:32] LABS: Lymphocytes # (M) 4.35 k/uL (1.0-4.8); Monocytes # (M) 0.26 k/uL (0-1.0); Neutrophils # (M) 1.79 k/uL (1.3-7.7); Neutrophils % (M) 28 %; Nucleated Red Blood Cells 0 /100 WBC (0-0); RBC Morphology Normal; Total Cells Counted 100
[2023-08-30 18:44] LABS: Appearance,Urine Clear (Clear); Bilirubin,Urine Negative (Negative); Blood,Urine Negative (Negative); Color,Urine Colorless; Glucose,Urine (UA) Negative (Negative); Ketones,Urine Negative (Negative); Leukocyte Esterase,Urine Negative (Negative); Nitrite,Urine Negative (Negative); Protein,Urine Negative (Negative); Specific Gravity,Urine 1.004 (1.001-1.035); Urobilinogen,Urine <2.0 mg/dL (<2.0)
[2023-08-30 19:49] VITALS: BP 138/76; PULSE 64; RESP 18
== END 2023-08-30 19:23 | disposition home or self-care (01) ==
LOC: EC 15:41
DX: R42 Dizziness and giddiness (principal); Z86.73 Personal history of transient ischemic attack (TIA), and cerebral infarction without residual deficits; Z88.8 Allergy status to other drugs, medicaments and biological substances; Z91.040 Latex allergy status
CPT/HCPCS: 36415; 70450; 80053; 81003; 84484; 85025; 85610; 85730; 93005; 99284

== ENCOUNTER → 2023-09-05 | Outpatient (CLI) | payer MEDICARE ==
[2023-09-05 14:40] LABS: INR 0.9 (<1.2); Partial Thromboplastin Time 23.7 sec (22.0-30.0); Prothrombin Time 10.1 sec (10.0-12.5)
[2023-09-05 19:45] LABS: Chol/HDL Ratio 3.21 Ratio; LDL Cholesterol,Calculated 135.3 mg/dL (0.0-131.0); VLDL Calculation 14.12 mg/dL (5.00-40.00)
[2023-09-06 01:45] LABS: Cardiolipin Ab IgG Interp Negative (Negative); Cardiolipin Ab IgM Interp Negative (Negative); Cardiolipin IgA Antibody <2.0 U/mL; Cardiolipin IgM Antibody 5.8 U/mL
[2023-09-06 14:16] LABS: APTT 34 Sec(s) (<43); Dilute Russell Viper Venom 32 Sec(s) (<44)
== END | disposition home or self-care (01) ==
LOC: LABWHC1 13:46
PROVIDERS: ATTEND Psychiatry & Neurology Neurology
DX: I63.9 Cerebral infarction, unspecified (principal)
CPT/HCPCS: 36415; 80061; 82607; 83090; 84439; 84443; 85610; 85613; 85652; 85730; 86038; 86140; 86147

== ENCOUNTER → 2023-09-19 | Outpatient (CLI) | payer MEDICARE ==
--- NOTE | 2023-09-19 16:47 | MR ---
EXAMINATION TYPE: MR angio head wo/neck wo/w con DATE OF EXAM: 09/19/2023 3:32 PM CLINICAL INDICATION:Female, 73 years old with history of I67.9 CEREBROVASCULAR DISEASE I65.23 OCCLUSI ON AND; PHH, CVA, forgetfulness, memory loss. History of non Hodgkin's lymphoma . COMPARISON: None Technical: MRA brain: 2D and 3-D [id number] Axial with MIP and 3-D reconstruction. Performed on a separate w orkstation. MRA neck: Multiplanar, multi-sequence imaging as well as [id number] and phase was performed extra cranial vasculature of the neck. 3-D reformatted images and maximum intensity projection reformatted images were submitted for evaluation, these are performed on a separate workstation. IV Contrast: 7.5 cc Gadavist Findings: Vertebral arteries: The vertebral arteries are patent. Vertebral arteries are: Codominant. Basilar artery: The basilar artery is intact. The basilar artery bifurcation is normal. Internal Carotid arteries: The cervical, petrous, cavernous and supraclinoid segments are normal. CINDY: Patent with no evidence of aneurysm. ACOM: Present without evidence of aneurysm. MCA: Patent with no evidence of aneurysm. CONVEYOR ATTENDANT: Patent with no evidence of aneurysm. PCOM: Hypoplastic bilaterally. RIGHT CAROTID SYSTEM: The common carotid artery is patent. The carotid bifurcations demonstrates no e vidence for hemodynamically significant stenosis. The internal carotid artery is patent. LEFT CAROTID SYSTEM: The common carotid artery is patent. The carotid bifurcations demonstrates no e vidence for hemodynamically significant stenosis. The internal carotid artery is patent. The origins of the great vessels and vertebral arteries appear unremarkable. The codominant vertebra l arteries. IMPRESSION: 1. No evidence of intracranial aneurysm or significant stenosis. 2. No evidence of significant stenosis at the carotid bifurcations. The carotid and vertebral arteri es are patent. 3. No evidence aneurysm.
--- NOTE | 2023-09-19 16:48 | MR ---
EXAMINATION TYPE: MR brain wo con DATE OF EXAM: 09/19/2023 3:31 PM CLINICAL INDICATION:Female, 73 years old with history of I67.9 CEREBROVASCULAR DISEASE I65.23 OCCLUSI ON AND; PHH, CVA, forgetfulness, memory loss. History of non Hodgkin's lymphoma . COMPARISON: MR brain 10/08/2022. TECHNIQUE: Multi planar, multi sequence imaging was performed through the brain including: T1, T2, In version recovery, Diffusion weighted imaging, and gradient echo imaging. No gadolinium was given. FINDINGS: Mild cerebral atrophy with proportional dilation of ventricular system. Scattered foci of high T2 s ignal intensity are seen within the periventricular white matter. Midline structures show no abnormal ity. Diffusion-weighted imaging shows no evidence of restricted diffusion. The susceptibility weighte d images do not reveal any evidence for micro-hemorrhage. Multiple lymph nodes are seen in the paroti d glands bilaterally. The bone marrow signal is within normal limits. Paranasal sinuses and mastoid air cells: No significant paranasal sinus disease. Visualized orbits: Bilateral aphakia IMPRESSION: 1. No evidence of intracranial mass or acute/subacute infarct. 2. Nonspecific white matter changes, likely secondary to small vessel ischemic disease.
== END | disposition home or self-care (01) ==
LOC: RADMRIMAIN 13:58
PROVIDERS: ATTEND Psychiatry & Neurology Neurology
DX: I67.9 Cerebrovascular disease, unspecified (principal); I65.23 Occlusion and stenosis of bilateral carotid arteries
CPT/HCPCS: 70544; 70549; 70551; A9585

== ENCOUNTER → 2023-10-23 | Outpatient (CLI) | payer MEDICARE ==
[2023-10-23 11:45] LABS: African American GFR (CKD) 67 (>60 ml/min/1.73 sqM); Blood Urea Nitrogen 20 mg/dL (7-17); Non-African American GFR(CKD) 58 (>60 ml/min/1.73 sqM)
--- NOTE | 2023-10-23 15:44 | CT ---
EXAMINATION TYPE: CT ChestAbdPelvis w con DATE OF EXAM: 10/23/2023 COMPARISON: 06/15/2023 HISTORY: 73-year-old female C83.01 lymphoma f/u TECHNIQUE: Contiguous axial scanning of the chest, abdomen, and pelvis performed with IV Contrast, pa tient injected with 80 mL of Isovue 300. Delayed images through the kidneys were obtained. Coronal/sa gittal reconstructions performed. CT DLP: 1121.9 mGycm Automated exposure control for dose reduction was used. FINDINGS: Chest: Heart normal size without pericardial effusion. Scattered three-vessel coronary artery calcifications are present. Ectatic ascending aorta 3.5 cm. In the chart as a branching anatomy. Numerous prominent lower cervical lymph nodes, largest on the left measuring up to 1.8 x 1.0 cm. Left axillary lymphadenopathy may be slightly larger at 3.4 cm versus 3.2 cm, previously. The patient 's arms down position alters orientation of the lymph nodes seen previously making direct comparison difficult. Overall similar appearance. No mediastinal or hilar lymphadenopathy by size criteria. Unchanged pleural parenchymal scarring posterior right upper lobe. Minimal emphysematous change. Unchanged 4 mm pulmonary nodule posterior left lower lobe. No consolidation or pleural effusion. ABDOMEN: Artifact from the patient's arms down. No definite focal liver lesion. Portal venous system is patent . No biliary ductal dilatation. Gallbladder, adrenal glands, left kidney spleen, and pancreas show no gross abnormality. 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 Radha hepatis lymph node 3.1 cm, unchanged. Portacaval node 3.9 cm, unchanged. Retroperitoneal nodes measuring up to 2.2 cm overall unchanged. Note along the right common iliac chain measures 2.3 cm, unchanged. No dilated small bowel, free fluid, or free air. Oral contrast seen throughout the small bowel. Mild to moderate stool burden. No pericolonic inflammatory change. Pelvis: Bladder partially distended. Uterus anteverted. Subserosal exophytic calcified fibroid posteriorly at 6.1 x 4.2 cm. Both ovaries are visualized. No abnormal fluid collection in the pelvis. External iliac chain adenopathy measuring up to 3.0 cm on the right and 3.3 cm on the left. No inguin al adenopathy seen. Bones: Moderate degenerative changes both hips. Hypertrophic facet arthropathy throughout the lumbar spine w ith degenerative grade 1 anterolisthesis L4-L5. No osseous destructive process. IMPRESSION: OVERALL LYMPHADENOPATHY IN THE BILATERAL AXILLA, UPPER ABDOMEN, RETROPERITONEUM, AND ILIAC CHAINS IS SIMILAR SUGGESTING OVERALL STABLE DISEASE.
== END | disposition home or self-care (01) ==
LOC: RADCTMAIN 11:09
PROVIDERS: ATTEND Internal Medicine Hematology & Oncology
DX: C83.01 Small cell B-cell lymphoma, lymph nodes of head, face, and neck (principal); R59.1 Generalized enlarged lymph nodes; G45.9 Transient cerebral ischemic attack, unspecified; D25.9 Leiomyoma of uterus, unspecified; Z71.3 Dietary counseling and surveillance
CPT/HCPCS: 82565; 84520; 71260; 74177; 36415; Q9967

== ENCOUNTER → 2024-02-23 | Outpatient (CLI) | payer MEDICARE ==
--- NOTE | 2024-02-23 09:29 | BD ---
EXAMINATION TYPE: Axial Bone Density DATE OF EXAM: 02/23/2024 CLINICAL HISTORY: 73 years old Female. ICD-10 CODE: M85.851 OT DISRD OF BONE DENSITY Height: 64.2 in Weight: 172 lbs FRAX RISK QUESTIONS: History of Fracture in Adulthood: rt wrist age 28 Secondary Osteoporosis: 3. Menopause before 45: age 41 RISK FACTORS HISTORY OF: History of Wrist Fracture: rt wrist age 28 EXAM MEASUREMENTS: Bone mineral densitometry was performed using the [employer] ([employer] System. Bone mineral density as measured about the Lumbar spine is: ----- L1-L4(G/cm2): 1.258 T Score Values are as follows: ----- L1: 0.2 ----- L2: 0.6 ----- L3: 1.4 ----- L4: 0.2 ----- L1-L4: 0.6 Z Score Values are as follows: ----- L1: 1.6 ----- L2: 1.9 ----- L3: 2.8 ----- L4: 1.5 ----- L1-L4: 2.0 Bone mineral density has: Decreased -3.7% since study of: 05/16/2018 Bone mineral density about the R hip (g/cm2): 0.827 Bone mineral density about the L hip (g/cm2): 0.689 T Score values are as follows: -----R Neck: -1.4 -----L Neck: -1.3 -----R Total: -1.4 -----L Total: -2.5 Z Score values are as follows: -----R Neck: 0.3 -----L Neck: 0.4 -----R Total: 0.0 -----L Total: -1.1 Bone mineral density has: Decreased -19.0% since study of: 05/16/2018 FRAX%s: The graph provided illustrates a 16.5% chance for a major osteoporotic fx and a 2.9% chance f or the hips probability for fx in 10 years time. IMPRESSION: Osteopenia (T Score between -2.5 and -1). There is slightly increased risk of fracture and the patient may be considered for treatment. Re-Screen 2-5 years. NOTE: T-SCORE=SD OF THE YOUNG ADULT MEAN. [facility], , 02/23/2024 9:26 AM
--- NOTE | 2024-02-26 18:00 | MM ---
Reason for Exam: Screening (asymptomatic). Last mammogram was performed 1 year(s) and 4 month(s) ago. Patient History: Menarche at age 11. First Full-Term at age 40. Late child-bearing (after 28). Postmenopausal. Other cancer. 1989, Excisional Biopsy on the Right side. 03/25/1997, Benign Excisional Biopsy on the left side. Mother had breast cancer, age 84. Risk Values: Ofelia 5 year model risk: 5.3%. NCI Lifetime model risk: 11.2%. Prior Study Comparison: 06/08/2020 Bilateral Screening Mammogram, [facility]. 08/13/2021 Bilateral Screening Mammogram, [facility]. 09/30/2022 Bilateral MG 3D screening mammo w/cad, [facility]. Tissue Density: The breasts are heterogeneously dense, which may obscure small masses. Findings: Analyzed By CAD. Unchanged areas of asymmetric density. Microclip right breast from prior biopsy. Benign vascular calcifications. There is no suspicious group of microcalcifications or new suspicious mass in either breast. Overall Assessment: Benign, BI-RAD 2 Management: Screening Mammogram of both breasts in 1 year. . Patient should continue monthly self-breast exams. A clinical breast exam by your physician is recommended on an annual basis. This exam should not preclude additional follow-up of suspicious palpable abnormalities. Note on Ofelia scores and lifetime risk: 1. A Ofelia score greater than 3% is considered moderate risk. If this is the case, consider specialist referral to assess eligibility for a risk reducing agent. 2. If overall lifetime risk for the development of breast cancer is 20% or higher, the patient may qualify for future screening with alternating mammogram and breast MRI. [facility], , 02/26/2024 5:57 PM. Electronically signed and approved by: Nisha Rollins M.D. Radiologist
== END | disposition home or self-care (01) ==
LOC: RADMAMWWP 07:08
PROVIDERS: ATTEND Internal Medicine
CPT/HCPCS: 77063; 77067; 77080

== ENCOUNTER → 2024-05-02 | Outpatient (CLI) | payer MEDICARE ==
--- NOTE | 2024-05-02 15:56 | XR ---
EXAMINATION TYPE: XR chest 2V DATE OF EXAM: 05/02/2024 1:31 PM COMPARISON: None. CLINICAL INDICATION: Female, 74 years old with history of R09.89 OTH SYMPTOMS AND SIGNS INVOLVING THE CIRC A, TECHNIQUE: XR chest 2V view(s) obtained. FINDINGS: The heart size is normal. The pulmonary vasculature is normal. No suspicious consolidations or infiltrates.. IMPRESSION: 1. No acute pulmonary process. [facility], , 05/02/2024 3:53 PM
== END | disposition home or self-care (01) ==
LOC: RADXRMAIN 12:10
PROVIDERS: ATTEND Internal Medicine
DX: R09.89 Other specified symptoms and signs involving the circulatory and respiratory systems (principal)
CPT/HCPCS: 71046

== ENCOUNTER → 2024-05-13 | Outpatient (CLI) | payer MEDICARE ==
--- NOTE | 2024-05-13 10:40 | US ---
EXAMINATION TYPE: US arterial LE single level DATE OF EXAM: 05/13/2024 10:08 AM COMPARISONS: None. CLINICAL INDICATION: Female, 74 years old with history of I73.9 Peripheral artery disease; patient levy s no complaints. PAD TECHNIQUE: Systolic pressures were taken of the upper and lower extremity arteries with ankle-brachia l indices calculated bilaterally. History of: Smoker: no Hypertension: no Diabetic: no Hyperlipidemia: no TIA/CVA: no Previous Vascular Surgery: no CAD: no NM: no Vascular Ulcers: no Claudication: no Gangrene: no FINDINGS: Doppler Waveforms: Right: Multiphasic Left: Monophasic posterior tibial and multi phasic dorsalis pedis. Brachial Artery systolic pressure: Right: 142 Left: 130 Posterior Tibial artery systolic pressure: Right: 140 Left: 139 Dorsalis Pedis artery systolic pressure: Right: 152 Left: 151 Ankle-Brachial Indices: Right: 1.07 Left: 1.06 IMPRESSION: JOE: Right: Normal 0.9 - 1.4, Recommendation: None Left: Normal 0.9 - 1.4, Recommendation: None [facility], , 05/13/2024 10:37 AM
== END | disposition home or self-care (01) ==
LOC: RADUSWWP 09:23
PROVIDERS: ATTEND Internal Medicine
DX: I73.9 Peripheral vascular disease, unspecified (principal)
CPT/HCPCS: 93922